=== PATIENT | female | born 1980 | race Caucasian/White ===

== ENCOUNTER 2018-09-15 05:56 | Inpatient (IN) | payer OTHER ==
[~2018-09-15] VITALS: Ht 167.6 cm; Wt 107.7 kg
[2018-09-15] VITALS (18 sets, daily range): BP systolic 121–191; BP diastolic 74–145; PULSE 79–111; RESP 19–29; Ht 167.6 cm; Wt 107.7 kg
[2018-09-15] MEDS ORDERED: GELATIN SIZE 100 SPONGE ONE (06:47)
[2018-09-15] MEDS ORDERED: LIDOCAINE 1% (MPF) 30 ML INJ ONE (06:47)
[2018-09-15] MEDS ORDERED: THROMBIN 5000 UNIT VIAL ONE (06:47)
[2018-09-15] MEDS ORDERED: HEPARIN 1000 UNITS/ML 10 ML INJ ONE (06:48)
[2018-09-15] MEDS ORDERED: SERT25TA PO (07:18)
[2018-09-15] MEDS ORDERED: TRAZ-111 PO (07:18)
[2018-09-15] MEDS ORDERED: LORA0.5T PO (07:18)
[2018-09-15] MEDS ORDERED: HYDR-3671 PO (07:19)
[2018-09-15] MEDS ORDERED: AMLO-147 PO (07:19)
[2018-09-15] MEDS ORDERED: ASPI81TA52 PO (07:20)
[2018-09-15] MEDS ORDERED: ISM20 PO (07:21)
[2018-09-15] MEDS ORDERED: ATOR20TA38 PO (07:21)
[2018-09-15] MEDS ORDERED: PROLIX5 PO (07:22)
[2018-09-15] MEDS ORDERED: BUPR-75 PO (07:22)
[2018-09-15] MEDS ORDERED: ALBU18HF INHALATION (07:23)
--- NOTE | 2018-09-15 07:30 | NUR ---
RE: ABNORMAL LABS RESULTS AND CAUGHT AND SPUTUM PRODUCTION CALLED DR. SALINAS anesthesiologist MADE AWARE OF ABNORMAL HEMOGLOBIN , BUN ,CREATININE AND CALCIUM LEVELS. ALSO MADE AWARE OF patient Sputum production with coughing. ORDERS RECEIVED TO TYPE AND CROSSMATCH 1 UNITS OF PRBC AND KEEP IT ON HOLD.
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
[2018-09-15] MEDS: NICOTINE (21 MG/24 HR) PATCH TRANSDERM SCH (09:12)
--- NOTE | 2018-09-15 11:02 | NUR ---
PACU NOTES TRANSFERRED TO ICU, AWAKE AND ALERT, UPDATED MOM WITH THE ROOM NUMBER. BED SIDE HAND OFF COMPLETED WITH MARIN AMBROSIO
--- NOTE | 2018-09-15 11:03 | NUR ---
Patient received from OR in stable condition. Patient is alert, oriented x4. Noted with intermittent cough with sputum production. Denies pain. Ambulatory.
--- NOTE | 2018-09-15 11:08 | NUR ---
Dr. Diaz called and made aware about the patient's admission. PAtient stable right now
--- NOTE | 2018-09-15 11:30 | NUR ---
Patient refused to take pictures. She replied,"I don't have any skin problems, So, I don't want to take pics." Skin assessment done.
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
[2018-09-15] MEDS ORDERED: DOCUSATE SODIUM 100 MG CAP PO PRN (12:00)
[2018-09-15] MEDS ORDERED: NACL 0.9% 3 ML SYG IV SCH (12:00)
[2018-09-15] MEDS ORDERED: ONDANSETRON 4 MG INJ IV PRN (12:00)
[2018-09-15] MEDS ORDERED: morphine 2 MG INJ IV PRN (12:00)
[2018-09-15] MEDS: ASPIRIN (EC) 81 MG TAB PO SCH (12:16)
[2018-09-15] MEDS ORDERED: SOD CHLORIDE 0.9% 250 ML IV* ONE (12:35)
[2018-09-15] MEDS ORDERED: FUROSEMIDE 40 MG INJ IV ONE (13:00)
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
[2018-09-15] MEDS ORDERED: hydrALAzine 20 MG INJ IV PRN (15:00)
[2018-09-15] MEDS: ACETAMINOPHEN 650MG/20.3ML CUP PO PRN (15:05)
--- NOTE | 2018-09-15 16:00 | NUR ---
Spoke with Rowena TESFAYE, Clarified blood transfusion order. She said to transfuse two units of total blood transfusion.
[2018-09-15] MEDS: CITRIC ACID/NA CITRATE 30 ML CUP PO SCH ×2 (16:40→21:09)
[2018-09-15] MEDS: LORAZEPAM 0.5 MG TAB PO PRN (17:46)
--- NOTE | 2018-09-15 19:28 | NUR ---
EOSS PAtient is alert, oriented x4. At the beginning patient was very congested, But after one dose of lasix patients was feeling better. currently on room air saturating 94%. Denies pain. Currently running two units of blood transfusion. No transfusion reaction noted so far. Afebrile. Vital signs stable. PAtient is very anxious. Blood pressure on high side. Dr. Hopkins aware. All needs attended.
--- NOTE | 2018-09-15 19:50 | RADRPT ---
Vent Rate: 83 bpm RR Interval: 0 msec OR Interval: 140 msec QRS Duration: 78 msec QT Interval: 402 msec QTC Interval: 472 msec P-R-T [place]: 82 - 85 - 55 degrees Normal sinus rhythm Low voltage QRS Cannot rule out Anterior infarct , age undetermined Abnormal ECG Electronically Signed By: Hudson Crandall [id number]
[2018-09-15] MEDS: EPOETIN 3000 UNITS/ML (NON ESRD/NON ONCOLOGY) SC SCH (20:00)
[2018-09-15] MEDS: ATORVASTATIN 20 MG TAB PO SCH (21:10)
[2018-09-15] MEDS: FUROSEMIDE 20 MG INJ IV SCH (21:10)
[2018-09-15] MEDS: traZODone 50 MG TAB PO SCH (21:12)
[2018-09-15] MEDS: ISOSORBIDE MONONITRATE 20 MG TAB PO SCH (21:19)
[2018-09-15] MEDS: IPRATROPIUM (NEB) 0.5 MG/2.5 ML AMP NEB PRN (21:44)
[2018-09-15] MEDS: ALBUTEROL 0.083% (NEB) 2.5 MG/3 ML AMP NEB PRN (21:44)
[2018-09-15] MEDS ORDERED: MAGNESIUM SULFATE 2 GM/50 ML 50 ML IVPB ONE (22:00)
[2018-09-15] MEDS ORDERED: MAGNESIUM SULFATE 2 GM/50 ML 50 ML ONE (22:02)
[2018-09-16] VITALS (12 sets, daily range): BP systolic 152–175; BP diastolic 85–92; PULSE 75–90; RESP 17–21
[2018-09-16] MEDS: OLANZAPINE 2.5 MG TAB PO SCH ×3 (00:02→20:19)
--- NOTE | 2018-09-16 02:09 | NUR ---
Pt was very angry and insulting to staff. Refused PRN Hydralazine for increase BP 189/90, 89. Explained the risk of having increase BP,but pt still refused
[2018-09-16] MEDS: FUROSEMIDE 20 MG INJ IV SCH ×2 (05:16→06:54)
[2018-09-16] MEDS: PANTOPRAZOLE (EC) 40 MG TAB PO SCH ×2 (05:17→06:53)
--- NOTE | 2018-09-16 07:31 | NUR ---
EOSS Pt AAO x4.PT denies pain or discomfort. Pt refused skin pictures. NPO after might for possible left arm fistula placement. Arm alert and sign at head of the in-placed for NO IV , BP and needle punctures on left arm. Pt able to ambulate to the bathroom with assist. Keeps getting up without calling for assistance despite educating her on medications side effects and risk for fall. Pt refused morning medication stated " I'll take my Meds at 8'clock. I want to sleep now" Made charge nurse aware.After she reported SOB and she agreed to take her morning medication.
[2018-09-16] MEDS: SEVELAMER CARBONATE 800 MG TABLET PO SCH ×3 (07:48→17:31)
[2018-09-16] MEDS: NICOTINE (21 MG/24 HR) PATCH TRANSDERM SCH (08:29)
[2018-09-16] MEDS: SERTRALINE 50 MG TAB PO SCH (08:30)
[2018-09-16] MEDS: BUPROPION (XL) 150 MG TAB PO SCH (08:30)
[2018-09-16] MEDS: ASPIRIN (EC) 81 MG TAB PO SCH (08:31)
[2018-09-16] MEDS: AMLODIPINE 10 MG TAB PO SCH (08:31)
[2018-09-16] MEDS: CITRIC ACID/NA CITRATE 30 ML CUP PO SCH ×3 (08:31→20:18)
[2018-09-16] MEDS: FLUPHENAZINE 5 MG TAB PO SCH (08:35)
[2018-09-16] MEDS: ISOSORBIDE MONONITRATE 20 MG TAB PO SCH (08:35)
--- NOTE | 2018-09-16 09:36 | CONS ---
Date/Time of Note Date/Time of Note DATE: 09/16/18 TIME: 09:36 Assessment/Plan Assessment/Plan Assessment/Plan 1. CKD V with worsening renal failure with Fluid overload and pulmonary congestion 2. Severe anemia with Hb 6.7 due to worsening CKD 3. metabolic acidosis 4. Anemia of CKD V s/p 2 units PRBC 5. H/o HTN 6. H/o CHF, acute on chronic diastolic vs systolic 7. H/o Schizophrenia 8. H/o Depression 9. H/o CVA with residual weakness Plan: continue Lasix 20mg IV BID,BUN/Cr 49/5.94, Bicitra 30ml PO TID Epogen 6000 units on TTS for anemia Pt has worsening CKD to ESRD now, eGFR 8- discussed with pt about , she wants to wait before doing HD , agreeable to do AVF will follow up Result Diagram: 09/16/18 0547 09/16/18 0547 Results 24hrs Laboratory Tests Test 09/15/18 11:42 09/15/18 12:26 09/15/18 17:41 09/15/18 20:12 Bedside Glucose 91 White Blood Count 8.5 Red Blood Count 2.34 L Hemoglobin 6.8 *L Hematocrit 21.7 L Mean Corpuscular 92.7 Volume Mean Corpuscular 29.1 Hemoglobin Mean Corpuscular 31.3 L Hemoglobin Concent Red Cell 15.4 H Distribution Width Platelet Count 225 Mean Platelet Volume 10.7 H Immature 0.500 H Granulocytes % Neutrophils % 66.0 Lymphocytes % 19.3 Monocytes % 6.3 Eosinophils % 7.5 H Basophils % 0.4 Nucleated Red Blood 0.0 Cells % Immature 0.040 H Granulocytes # Neutrophils # 5.6 Lymphocytes # 1.6 Monocytes # 0.5 Eosinophils # 0.6 H Basophils # 0.0 Nucleated Red Blood 0.0 Cells # Sodium Level 143 142 Potassium Level 4.3 4.5 Chloride Level 112 H 111 H Carbon Dioxide Level 17 L 18 L Anion Gap 14 H 13 Blood Urea Nitrogen 46 H 49 H Creatinine 5.83 H 5.83 H Est Glomerular 8 L 8 L Filtrat Rate mL/min Glucose Level 81 118 Hemoglobin A1c 5.4 Calcium Level 7.9 L 8.0 L Phosphorus Level 5.3 H Magnesium Level 1.7 1.7 Iron Level 104 Total Iron Binding 248 Capacity Percent Iron 42 Saturation Lactate 906 H Dehydrogenase Troponin I 0.018 0.014 Vitamin B12 Level 788 Folate 12.5 Creatine Kinase 276 H Creatine Kinase 1.2 Index Creatinine Kinase MB 3.43 H (Mass) Test 09/16/18 00:56 09/16/18 05:47 09/16/18 07:48 Troponin I 0.016 0.025 White Blood Count 9.3 Red Blood Count 2.79 L Hemoglobin 8.2 #L Hematocrit 25.7 L Mean Corpuscular 92.1 Volume Mean Corpuscular 29.4 Hemoglobin Mean Corpuscular 31.9 L Hemoglobin Concent Red Cell 15.1 H Distribution Width Platelet Count 213 Mean Platelet Volume 10.9 H Immature 1.000 H Granulocytes % Neutrophils % 62.3 Lymphocytes % 21.4 Monocytes % 8.2 Eosinophils % 6.7 Basophils % 0.4 Nucleated Red Blood 0.0 Cells % Immature 0.090 H Granulocytes # Neutrophils # 5.8 Lymphocytes # 2.0 Monocytes # 0.8 Eosinophils # 0.6 H Basophils # 0.0 Nucleated Red Blood 0.0 Cells # Sodium Level 144 Potassium Level 4.4 Chloride Level 113 H Carbon Dioxide Level 20 L Anion Gap 11 Blood Urea Nitrogen 49 H Creatinine 5.94 H Est Glomerular 8 L Filtrat Rate mL/min Glucose Level 79 Calcium Level 8.2 L Lab Scanned Report LAB Consultation Date/Type/Reason Admit Date/Time Sep 15, 2018 at 10:45 Initial Consult Date 09/15/18 Type of Consult NEPHROLOGY Requesting Provider: ARIANA BLANK MD 24 HR Interval Summary Free Text/Dictation BUN/Cr still remains high, eGFR 8 Exam/Review of Systems Vital Signs Vitals Vital Signs Date Temp Pulse Resp B/P (MAP) Pulse Ox O2 O2 Flow FiO2 Time Delivery Rate 09/16/18 82 08:30 09/16/18 98.3 18 175/86 97 07:16 (115) 09/16/18 Room Air 00:00 09/15/18 2.0 21:44 Intake and Output 09/15/18 09/15/18 09/16/18 1515:00 23:00 07:00 IntakeIntake Total 750 ml 522 ml 28 ml BalanceBalance 750 ml 522 ml 28 ml Exam Constitutional: alert, awake, on acute distress Respiratory: crackles/rales, other (Bibasilar crackles, no wheezing ) Cardiovascular: regular rate and rhythm, nl pulses Gastrointestinal: soft, non-tender Musculoskeletal: swelling (1-2+ pittng edema, no clubbing, no cyanosis ) Neurological: [employer] II-XII intact, nl mental status Medications Medications Current Medications Nicotine (Nicoderm 21 Mg/ 24hr) 1 patch DAILY TRANSDERM Last administered on 09/16/18 08:29; Admin Dose 1 PATCH; Start 09/15/18 at 09:00 Amlodipine Besylate (Norvasc) 10 mg DAILY PO Last administered on 09/16/18 08:31; Admin Dose 10 MG; Start 09/16/18 at 09:00 Aspirin (Halfprin) 81 mg DAILY PO Last administered on 09/16/18 08:31; Admin Dose 81 MG; Start 09/15/18 at 12:00 Atorvastatin Calcium (Lipitor) 20 mg QHS PO Last administered on 09/15/18 21:10; Admin Dose 20 MG; Start 09/15/18 at 21:00 Bupropion HCl (Wellbutrin Xl) 150 mg DAILY PO Last administered on 09/16/18 08:30; Admin Dose 150 MG; Start 09/16/18 at 09:00 Fluphenazine HCl (Prolixin) 5 mg DAILY PO Last administered on 09/16/18 08:35; Admin Dose 5 MG; Start 09/16/18 at 09:00 Hydralazine HCl (Apresoline) 25 mg Q8 PO Last administered on 09/16/18 06:53; Admin Dose 25 MG; Start 09/15/18 at 12:00 Isosorbide Mononitrate (Ismo) 20 mg BID PO Last administered on 09/16/18 08:35; Admin Dose 20 MG; Start 09/15/18 at 21:00 Lorazepam (Ativan) 0.5 mg Q4H PRN PO ANXIETY Last administered on 09/15/18 17:46; Admin Dose 0.5 MG; Start 09/15/18 at 12:00 Sertraline HCl (Zoloft) 25 mg DAILY PO Last administered on 09/16/18 08:30; Admin Dose 25 MG; Start 09/16/18 at 09:00 Trazodone HCl (Desyrel) 50 mg QHS PO Last administered on 1/15/19at 21:12; Admin Dose 50 MG; Start 09/15/18 at 21:00 IV Flush (NS 3 ml) 3 ml PER PROTOCOL IV ; Start 09/15/18 at 12:00 Ondansetron HCl (Zofran Inj) 4 mg Q6H PRN IV NAUSEA AND/OR VOMITING; Start 09/15/18 at 12:00 Albuterol (Proventil 0.083% (Neb)) 2.5 mg Q2H RESP THERAPY PRN NEB SHORTNESS OF BREATH Last administered on 09/15/18at 21:44; Admin Dose 2.5 MG; Start 09/15/18 at 12:00 Ipratropium [place] (Atrovent 0.02% (Neb)) 0.5 mg Q2H RESP THERAPY PRN NEB SHORTNESS OF BREATH Last administered on 09/15/18at 21:44; Admin Dose 0.5 MG; Start 09/15/18 at 12:00 Acetaminophen (Tylenol Liquid) 650 mg Q6H PRN PO PAIN LEVEL 1-3 OR FEVER Last administered on 09/15/18at 15:05; Admin Dose 650 MG; Start 09/15/18 at 12:00 Morphine Sulfate (morphine) 2 mg Q4H PRN IV PAIN LEVEL 7-10; Start 09/15/18 at 12:00 Lorazepam (Ativan) 1 mg Q2H PRN IV ANXIETY; Start 09/15/18 at 12:00 Docusate Sodium (Colace) 100 mg Q12H PRN PO CONSTIPATION; Start 09/15/18 at 12:00 Pantoprazole (Protonix Tab) 40 mg DAILY@06 PO Last administered on 09/16/18at 06:53; Admin Dose 40 MG; Start 09/16/18 at 06:00 Citric Acid/ Sodium Citrate (Bicitra) 30 ml TID PO Last administered on 09/16/18at 08:31; Admin Dose 30 ML; Start 09/15/18 at 16:00 Hydralazine HCl (Apresoline) 10 mg Q6H PRN IV ELEVATED BLOOD PRESSURE Last administered on 09/15/18at 15:14; Admin Dose 10 MG; Start 09/15/18 at 15:00 Furosemide (Lasix) 20 mg BID DIURETICS IV Last administered on 09/16/18at 06:54; Admin Dose 20 MG; Start 09/15/18 at 20:00 Sevelamer Carbonate (Renvela) 1,600 mg WITH MEALS PO Last administered on 09/16/18at 07:48; Admin Dose 1,600 MG; Start 09/16/18 at 07:35 Epoetin Jimmy (Epogen (Non Esrd/Non Oncology)) 6,000 units TuThSa@17 SC Last administered on 09/15/18at 20:00; Admin Dose 6,000 UNITS; Start 09/15/18 at 20:00 Olanzapine (Zyprexa) 2.5 mg BID PO Last administered on 09/16/18at 08:30; Admin Dose 2.5 MG; Start 09/15/18 at 22:00 ISABELLE BROWNING MD Sep 16, 2018 09:36
--- NOTE | 2018-09-16 13:31 | RADRPT ---
Echocardiogram Report Patient Name: JEZ STOKES Gender: Female Date: 1980 Study Date: 15-Sep-2018 Hvac Engineering Technician: Mona Rosario RDCS Location: 106 Ref. Physician: SYDNEY JACKSON Quality: Adequate Procedures: Transthoracic echocardiogram with complete 2D, M-Mode, and doppler examination. Indications: Evaluate Left Ventricular function. 2D/M Mode Doppler Measurement Value Normal Ranges Measurement Value Normal Ranges LVIDd 2D 5.2 3.5 - 5.6 cm AV Peak Nate 1.7 m/sec LVIDs 2D 2.7 2.1 - 4.1 cm AV Peak PG 12.0 mmHg FS 2D 47.9 % LVOT Peak Nate 1.4 m/sec LVPWd 2D 1.3 0.6 - 1.1 cm LVOT Peak PG 8.0 mmHg IVSd 2D 1.3 0.6 - 1.1 cm MV E Peak Nate 1.2 m/sec IVS/LVPW 2D 1.0 MV A Peak Nate 0.8 m/sec AoR Diam 2D 2.5 2.0 - 3.7 cm MV E/A 1.4 LA/Ao 2D 2 0 - 1 MV Decel Time 148 msec EDV 2D 141.0 cm3 MV E/A 1.4 ESV 2D 19.9 cm3 TR Peak Nate 2.9 m/sec LA Dimen 2D 4.3 2.3 - 4.0 cm TR Peak PG 34.0 mmHg RVSP 49.0 mmHg RA Pressure 15.0 Findings Left Ventricle: Normal left ventricular systolic function. Normal left ventricular cavity size. Mild concentric left ventricular hypertrophy. Ejection fraction is visually estimated at 5560 %. Tissue Doppler/Mitral Doppler indices are within normal limits. Right Ventricle: Normal right ventricular size. Normal right ventricular systolic function. Left Atrium: There is mild enlargement of left atrium. Right Atrium: The right atrium is normal in size. Mitral Valve: Normal appearance and function of the mitral valve with trace physiologic regurgitation. Aortic Valve: No significant aortic stenosis or insufficiency. Aortic cusps appear mildly calcified. Tricuspid Valve: Normal appearance of the tricuspid valve. Estimated peak PA systolic pressure 49 mmHg. There is trace to mild tricuspid regurgitation. Pulmonic Valve: Pulmonic valve not well visualized. Pericardium: Normal pericardium with no significant pericardial effusion. Aorta: Normal aortic root. IVC: Normal size and normal respiratory collapse consistent with normal right atrial pressure. Conclusions Normal left ventricular systolic function. Normal left ventricular cavity size. Mild concentric left ventricular hypertrophy. Ejection fraction is visually estimated at 55-60 %. Tissue Doppler/Mitral Doppler indices are within normal limits. There is mild enlargement of left atrium. Normal appearance and function of the mitral valve with trace physiologic regurgitation. Normal appearance of the tricuspid valve. Estimated peak PA systolic pressure 49 mmHg. There is trace to mild tricuspid regurgitation. Electronically Signed By: Ed Shields 16-Sep-2018 13:30:40 -0800 Patient Name: JEZ STOKES Study Date: 15-Sep-2018 [id number]
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
--- NOTE | 2018-09-16 15:47 | PN ---
Date/Time of Note Date/Time of Note DATE: 09/16/18 TIME: 15:42 Assessment/Plan VTE Prophylaxis Risk score (from [facility] [place])>0 risk: 7 SCD applied (from [facility] [place]): Yes Pharmacological prophylaxis: NA/contraindicated Pharm contraindication: surgical contra Lines/Catheters IV C[facility]ter Type [facility]from [facility] Saline Lock Assessment/Plan Hospital Course Patient continues on supplemental oxygen via nasal cannula without distress, status post blood transfusion. Pending hemodialysis access placement. Assessment/Plan -Pulmonary congestion, s/p Lasix -Acute anemia, status post blood transfusion -Chronic kidney disease stage IV 5 with progression to end-stage renal disease. Patient need to be initiated on hemodialysis. Dr. Panda is following in nephrology consultation. -Congestive heart failure, will obtain 2D echo. Dr. Shields is following in cardiology consultation -Hypertension, continue hydralazine -Schizophrenia, continue patient's antipsychotic medications Further recommendations based on clinical course. Plan of care discussed with Dr. Carrero. Result Diagram: 09/16/18 0547 09/16/18 0547 Results 24hrs Laboratory Tests Test 09/15/18 17:41 09/15/18 20:12 09/16/18 00:56 09/16/18 05:47 Iron Level 104 Total Iron Binding 248 Capacity Percent Iron 42 Saturation Lactate 906 H Dehydrogenase Troponin I 0.018 0.014 0.016 0.025 Vitamin B12 Level 788 Folate 12.5 Sodium Level 142 144 Potassium Level 4.5 4.4 Chloride Level 111 H 113 H Carbon Dioxide Level 18 L 20 L Anion Gap 13 11 Blood Urea Nitrogen 49 H 49 H Creatinine 5.83 H 5.94 H Est Glomerular 8 L 8 L Filtrat Rate mL/min Glucose Level 118 79 Calcium Level 8.0 L 8.2 L Magnesium Level 1.7 Creatine Kinase 276 H Creatine Kinase 1.2 Index Creatinine Kinase MB 3.43 H (Mass) White Blood Count 9.3 Red Blood Count 2.79 L Hemoglobin 8.2 #L Hematocrit 25.7 L Mean Corpuscular 92.1 Volume Mean Corpuscular 29.4 Hemoglobin Mean Corpuscular 31.9 L Hemoglobin Concent Red Cell 15.1 H Distribution Width Platelet Count 213 Mean Platelet Volume 10.9 H Immature 1.000 H Granulocytes % Neutrophils % 62.3 Lymphocytes % 21.4 Monocytes % 8.2 Eosinophils % 6.7 Basophils % 0.4 Nucleated Red Blood 0.0 Cells % Immature 0.090 H Granulocytes # Neutrophils # 5.8 Lymphocytes # 2.0 Monocytes # 0.8 Eosinophils # 0.6 H Basophils # 0.0 Nucleated Red Blood 0.0 Cells # Test 09/16/18 07:48 Lab Scanned Report LAB Exam/Review of Systems Vital Signs Vitals Vital Signs Date Temp Pulse Resp B/P (MAP) Pulse Ox O2 O2 Flow FiO2 Time Delivery Rate 09/16/18 82 12:22 09/16/18 98.2 18 170/85 98 12:05 (113) 09/16/18 Nasal 2.0 08:00 Cannula Intake and Output 09/15/18 09/15/18 09/16/18 1515:00 23:00 07:00 IntakeIntake Total 750 ml 522 ml 28 ml BalanceBalance 750 ml 522 ml 28 ml Exam Constitutional: alert, oriented Respiratory: diminished breath sounds Cardiovascular: regular rate and rhythm Gastrointestinal: soft, non-tender Musculoskeletal: nl extremities to inspection Extremities: normal pulses Neurological: nl mental status Skin: nl turgor Medications Medications Current Medications Nicotine (Nicoderm 21 Mg/ 24hr) 1 patch DAILY TRANSDERM Last administered on 09/16/18 08:29; Admin Dose 1 PATCH; Start 09/15/18 at 09:00 Amlodipine Besylate (Norvasc) 10 mg DAILY PO Last administered on 09/16/18at 08 :31; Admin Dose 10 MG; Start 09/16/18 at 09:00 Aspirin (Halfprin) 81 mg DAILY PO Last administered on 09/16/18 08:31; Admin Dose 81 MG; Start 09/15/18 at 12:00 Atorvastatin Calcium (Lipitor) 20 mg QHS PO Last administered on 09/15/18at 21:10; Admin Dose 20 MG; Start 09/15/18 at 21:00 Bupropion HCl (Wellbutrin Xl) 150 mg DAILY PO Last administered on 09/16/18 08:30; Admin Dose 150 MG; Start 09/16/18 at 09:00 Fluphenazine HCl (Prolixin) 5 mg DAILY PO Last administered on 09/16/18at 08:35; Admin Dose 5 MG; Start 09/16/18 at 09:00 Lorazepam (Ativan) 0.5 mg Q4H PRN PO ANXIETY Last administered on 09/15/18 17:46; Admin Dose 0.5 MG; Start 09/15/18 at 12:00 Sertraline HCl (Zoloft) 25 mg DAILY PO Last administered on 09/16/18 08:30; Admin Dose 25 MG; Start 09/16/18 at 09:00 Trazodone HCl (Desyrel) 50 mg QHS PO Last administered on 09/15/18 21:12; Admin Dose 50 MG; Start 09/15/18 at 21:00 IV Flush (NS 3 ml) 3 ml PER PROTOCOL IV ; Start 09/15/18 at 12:00 Ondansetron HCl (Zofran Inj) 4 mg Q6H PRN IV NAUSEA AND/OR VOMITING; Start 09/15/18 at 12:00 Albuterol (Proventil 0.083% (Neb)) 2.5 mg Q2H RESP THERAPY PRN NEB SHORTNESS OF BREATH Last administered on 09/15/18at 21:44; Admin Dose 2.5 MG; Start 09/15/18 at 12:00 Ipratropium [place] (Atrovent 0.02% (Neb)) 0.5 mg Q2H RESP THERAPY PRN NEB SHORTNESS OF BREATH Last administered on 09/15/18 21:44; Admin Dose 0.5 MG; Start 09/15/18 at 12:00 Acetaminophen (Tylenol Liquid) 650 mg Q6H PRN PO PAIN LEVEL 1-3 OR FEVER Last administered on 09/15/18at 15:05; Admin Dose 650 MG; Start 09/15/18 at 12:00 Morphine Sulfate (morphine) 2 mg Q4H PRN IV PAIN LEVEL 7-10; Start 09/15/18 at 12:00 Lorazepam (Ativan) 1 mg Q2H PRN IV ANXIETY; Start 09/15/18 at 12:00 Docusate Sodium (Colace) 100 mg Q12H PRN PO CONSTIPATION; Start 09/15/18 at 12:00 Pantoprazole (Protonix Tab) 40 mg DAILY@06 PO Last administered on 09/16/18 06:53; Admin Dose 40 MG; Start 09/16/18 at 06:00 Citric Acid/ Sodium Citrate (Bicitra) 30 ml TID PO Last administered on 09/16/18at 14:42; Admin Dose 30 ML; Start 09/15/18 at 16:00 Sevelamer Carbonate (Renvela) 1,600 mg WITH MEALS PO Last administered on 09/16/18at 07:48; Admin Dose 1,600 MG; Start 09/16/18 at 07:35 Epoetin [place] (Epogen (Non Esrd/Non Oncology)) 6,000 units TuThSa@17 SC Last administered on 09/15/18at 20:00; Admin Dose 6,000 UNITS; Start 09/15/18 at 20:00 Olanzapine (Zyprexa) 2.5 mg BID PO Last administered on 09/16/18at 08:30; Admin Dose 2.5 MG; Start 09/15/18 at 22:00 Furosemide (Lasix) 40 mg BID DIURETICS IV ; Start 09/16/18 at 18:00 Hydralazine HCl (Apresoline) 10 mg Q4 PRN IV ELEVATED BLOOD PRESSURE; Start 09/16/18 at 13:30 Hydralazine HCl (Apresoline) 50 mg Q8 PO Last administered on 09/16/18at 14:42; Admin Dose 50 MG; Start 09/16/18 at 14:00 Isosorbide Dinitrate (Isordil) 20 mg TID PO ; Start 09/16/18 at 21:00 SYDNEY JACKSON Sep 16, 2018 15:47
--- NOTE | 2018-09-16 16:27 | NUR ---
patient kept npo breakfast and lunch for a possible procedure in or today by .patient seen by for consult and clearance and said pt needs to be diuresed until patient is able to lie flat in or for the surgery.now patient will be on diuretics and said maybe in a few days patient will be ok for the surgery.renal diet resumed for dinner today until patient will finally go for the procedure in few days.
[2018-09-16] MEDS: FUROSEMIDE 40 MG INJ IV SCH (17:32)
--- NOTE | 2018-09-16 20:00 | NUR ---
pt awakened asking a lot of food gave sandwich cassandra well.
[2018-09-16] MEDS: ATORVASTATIN 20 MG TAB PO SCH (20:19)
[2018-09-16] MEDS: traZODone 50 MG TAB PO SCH (20:19)
[2018-09-16] MEDS: ISOSORBIDE DINITRATE 20 MG TAB PO SCH (20:19)
--- NOTE | 2018-09-16 20:37 | PN ---
Date/Time of Note Date/Time of Note DATE: 09/16/18 TIME: 20:34 Assessment/Plan Lines/Catheters IV Catheter Type (from [facility]): Saline Lock Assessment/Plan Chief Complaint/Hosp Course -Chronic kidney disease stage IV to V: Seems that the patient's renal failure has been worsened secondary to her diabetes and hypertension. We will plan to create an access for the patient when she has been optimized from a medical standpoint. Will schedule her surgery in the coming days pending optimization -The patient does have adequate vein conduits on her left upper extremity in which we will plan to use for her fistula creation -Appreciate nephrology evaluation and optimization -Appreciate cardiology evaluation and optimization -Discussed findings, plan and management with the patient and the family at the bedside. -Optimize vascular status (BP meds, diet, nutrition, exercise, sugar control, antiplatelets). -Thank you for allowing me to participate in the care of this patient. Please call with any questions. Subjective 24 Hr Interval Summary no new vascular events overnight Exam/Review of Systems Vital Signs Vitals Vital Signs Date Temp Pulse Resp B/P (MAP) Pulse Ox O2 O2 Flow FiO2 Time Delivery Rate 09/16/18 97.5 77 17 152/89 91 20:13 (110) 09/16/18 Nasal 2.0 19:46 Cannula Intake and Output 09/15/18 09/15/18 09/16/18 1515:00 23:00 07:00 IntakeIntake Total 750 ml 522 ml 28 ml BalanceBalance 750 ml 522 ml 28 ml Exam Free Text/Dictation GENERAL: The patient is awake with productive cough. PULMONARY: Coarse breath sounds bilaterally, some crackles at the bases. CARDIOVASCULAR: S1, S2 present. ABDOMEN: Soft, nontender, nondistended. Bowel sounds positive. Truncal obesity. EXTREMITIES: -Right lower extremities: Palpable femoral pulse, faint pedal pulse. Motor, sensory intact. Capillary refill 3 seconds, large leg. -Left lower extremity: Palpable femoral pulse, faint pedal pulse. Motor, sensory intact. Capillary refill 3 seconds. Large leg. -Bilateral upper extremities: Palpable brachial pulse. Motor, sensory intact. Capillary refill 3 seconds. -Right-sided upper and lower extremity: Motor is intact; however, has some weakness and paralysis that appears to be 4/5. Results Result Diagram: 09/16/18 0547 09/16/18 0547 ARIANA BLANK MD Sep 16, 2018 20:37
--- NOTE | 2018-09-16 21:00 | NUR ---
Dr Bird here to see pt ordered no BP or IV to left arm.
[2018-09-17] VITALS (11 sets, daily range): BP systolic 137–188; BP diastolic 66–88; PULSE 75–85; RESP 20
--- NOTE | 2018-09-17 05:38 | NUR ---
eoss; resting on and off no acute distress. still with LE edema instructed to elevate lower extremity. BP remained elevated but asymptomatic. enc self reposition ,hourly rounding done. will continue to monitor pt.
[2018-09-17] MEDS: FUROSEMIDE 40 MG INJ IV SCH ×2 (05:46→17:52)
[2018-09-17] MEDS: PANTOPRAZOLE (EC) 40 MG TAB PO SCH (05:46)
--- NOTE | 2018-09-17 07:54 | PN ---
Date/Time of Note Date/Time of Note DATE: 09/17/18 TIME: 07:53 Assessment/Plan Lines/Catheters IV Catheter Type (from [facility]): Saline Lock Assessment/Plan Chief Complaint/Hosp Course -Chronic kidney disease stage IV to V: Seems that the patient's renal failure has been worsened secondary to her diabetes and hypertension. We will plan to create an access for the patient when she has been optimized from a medical standpoint. Will schedule her surgery in the coming days pending optimization -The patient does have adequate vein conduits on her left upper extremity in which we will plan to use for her fistula creation -Appreciate nephrology evaluation and optimization -Appreciate cardiology evaluation and optimization -Discussed findings, plan and management with the patient and the family at the bedside. -Optimize vascular status (BP meds, diet, nutrition, exercise, sugar control, antiplatelets). -Thank you for allowing me to participate in the care of this patient. Please call with any questions. Subjective 24 Hr Interval Summary no new vascular events overnight Exam/Review of Systems Vital Signs Vitals Vital Signs Date Temp Pulse Resp B/P (MAP) Pulse Ox O2 O2 Flow FiO2 Time Delivery Rate 09/17/18 98.0 84 20 188/82 95 Room Air 07:16 (117) 09/16/18 2.0 19:46 Intake and Output 09/16/18 09/16/18 09/17/18 1515:00 23:00 07:00 IntakeIntake Total 50 ml 350 ml 400 ml BalanceBalance 50 ml 350 ml 400 ml Exam Free Text/Dictation GENERAL: Awake and answers simple questions PULMONARY: Coarse breath sounds bilaterally, some crackles at the bases. CARDIOVASCULAR: S1, S2 present. ABDOMEN: Soft, nontender, nondistended. Bowel sounds positive. Truncal obesity. EXTREMITIES: -Right lower extremities: Palpable femoral pulse, faint pedal pulse. Motor, sensory intact. Capillary refill 3 seconds, large leg. -Left lower extremity: Palpable femoral pulse, faint pedal pulse. Motor, sensory intact. Capillary refill 3 seconds. Large leg. -Bilateral upper extremities: Palpable brachial pulse. Motor, sensory intact. Capillary refill 3 seconds. -Right-sided upper and lower extremity: Motor is intact; however, has some weakness and paralysis that appears to be 4/5. Results Result Diagram: 09/16/18 0547 09/16/18 0547 ARIANA BLANK MD Sep 17, 2018 07:54
[2018-09-17] MEDS: CITRIC ACID/NA CITRATE 30 ML CUP PO SCH ×3 (08:41→21:36)
[2018-09-17] MEDS: SERTRALINE 50 MG TAB PO SCH (08:41)
[2018-09-17] MEDS: SEVELAMER CARBONATE 800 MG TABLET PO SCH ×3 (08:41→17:52)
[2018-09-17] MEDS: NICOTINE (21 MG/24 HR) PATCH TRANSDERM SCH (08:41)
[2018-09-17] MEDS: ASPIRIN (EC) 81 MG TAB PO SCH (08:42)
[2018-09-17] MEDS: OLANZAPINE 2.5 MG TAB PO SCH ×2 (08:42→21:36)
[2018-09-17] MEDS: AMLODIPINE 10 MG TAB PO SCH (08:42)
[2018-09-17] MEDS: BUPROPION (XL) 150 MG TAB PO SCH (08:42)
[2018-09-17] MEDS: FLUPHENAZINE 5 MG TAB PO SCH (08:43)
[2018-09-17] MEDS: ISOSORBIDE DINITRATE 20 MG TAB PO SCH ×3 (09:14→21:36)
--- NOTE | 2018-09-17 12:31 | CONS ---
Date/Time of Note Date/Time of Note DATE: 09/17/18 TIME: 12:31 Assessment/Plan Assessment/Plan Assessment/Plan 1. CKD V with worsening renal failure with Fluid overload and pulmonary congestion 2. Severe anemia with Hb 6.7 due to worsening CKD 3. metabolic acidosis 4. Anemia of CKD V s/p 2 units PRBC 5. H/o HTN 6. H/o CHF, acute on chronic diastolic vs systolic 7. H/o Schizophrenia 8. H/o Depression 9. H/o CVA with residual weakness Plan: decrease Lasix 20mg IV BID,BUN/Cr 50/6.18, eGFR 8 Bicitra 30ml PO TID Epogen 6000 units on TTS for anemia Pt has worsening CKD to ESRD now, eGFR 8- discussed with pt about , she wants to wait before doing HD , but she is agreeable to do AVF pt is ok to have AVF will follow up Result Diagram: 09/17/18 0815 09/17/18 0815 Results 24hrs Laboratory Tests Test 09/17/18 07:46 09/17/18 08:15 Lab Scanned Report BLOOD TRANSFUSION White Blood Count 9.6 Red Blood Count 2.87 L Hemoglobin 8.4 L Hematocrit 26.1 L Mean Corpuscular Volume 90.9 Mean Corpuscular Hemoglobin 29.3 Mean Corpuscular Hemoglobin Concent 32.2 Red Cell Distribution Width 15.1 H Platelet Count 220 Mean Platelet Volume 11.0 H Immature Granulocytes % 0.600 H Neutrophils % 66.4 Lymphocytes % 19.0 Monocytes % 7.7 Eosinophils % 6.0 Basophils % 0.3 Nucleated Red Blood Cells % 0.0 Immature Granulocytes # 0.060 H Neutrophils # 6.4 Lymphocytes # 1.8 Monocytes # 0.7 Eosinophils # 0.6 H Basophils # 0.0 Nucleated Red Blood Cells # 0.0 Sodium Level 140 Potassium Level 4.5 Chloride Level 111 H Carbon Dioxide Level 23 Anion Gap 6 Blood Urea Nitrogen 50 H Creatinine 6.18 H Est Glomerular Filtrat Rate mL/min 8 L Glucose Level 131 # Calcium Level 8.4 Consultation Date/Type/Reason Admit Date/Time Sep 15, 2018 at 10:45 Initial Consult Date 09/15/18 Type of Consult NEPHROLOGY Requesting Provider: ARIANA BLANK MD Exam/Review of Systems Vital Signs Vitals Vital Signs Date Temp Pulse Resp B/P (MAP) Pulse Ox O2 O2 Flow FiO2 Time Delivery Rate 09/17/18 85 12:28 09/17/18 98.0 20 164/84 91 Room Air 11:25 (110) 09/16/18 2.0 19:46 Intake and Output 09/16/18 09/16/18 09/17/18 1515:00 23:00 07:00 IntakeIntake Total 50 ml 350 ml 400 ml BalanceBalance 50 ml 350 ml 400 ml Exam Constitutional: alert, awake, on acute distress Respiratory: crackles/rales, other (Bibasilar crackles, no wheezing ) Cardiovascular: regular rate and rhythm, nl pulses Gastrointestinal: soft, non-tender Musculoskeletal: swelling (1-2+ pittng edema, no clubbing, no cyanosis ) Neurological: [employer] II-XII intact, nl mental status Medications Medications Current Medications Nicotine (Nicoderm 21 Mg/ 24hr) 1 patch DAILY TRANSDERM Last administered on 09/17/18 08:41; Admin Dose 1 PATCH; Start 09/15/18 at 09:00 Amlodipine Besylate (Norvasc) 10 mg DAILY PO Last administered on 09/17/18 08:42; Admin Dose 10 MG; Start 09/16/18 at 09:00 Aspirin (Halfprin) 81 mg DAILY PO Last administered on 09/17/18 08:42; Admin Dose 81 MG; Start 09/15/18 at 12:00 Atorvastatin Calcium (Lipitor) 20 mg QHS PO Last administered on 09/16/18 20:19; Admin Dose 20 MG; Start 09/15/18 at 21:00 Bupropion HCl (Wellbutrin Xl) 150 mg DAILY PO Last administered on 09/17/18 08:42; Admin Dose 150 MG; Start 09/16/18 at 09:00 Fluphenazine HCl (Prolixin) 5 mg DAILY PO Last administered on 09/17/18 08:43; Admin Dose 5 MG; Start 09/16/18 at 09:00 Lorazepam (Ativan) 0.5 mg Q4H PRN PO ANXIETY Last administered on 09/15/18 17:46; Admin Dose 0.5 MG; Start 09/15/18 at 12:00 Sertraline HCl (Zoloft) 25 mg DAILY PO Last administered on 09/17/18 08:41; Admin Dose 25 MG; Start 09/16/18 at 09:00 Trazodone HCl (Desyrel) 50 mg QHS PO Last administered on 09/16/18 20:19; Admin Dose 50 MG; Start 09/15/18 at 21:00 IV Flush (NS 3 ml) 3 ml PER PROTOCOL IV ; Start 09/15/18 at 12:00 Ondansetron HCl (Zofran Inj) 4 mg Q6H PRN IV NAUSEA AND/OR VOMITING; Start 09/15/18 at 12:00 Albuterol (Proventil 0.083% (Neb)) 2.5 mg Q2H RESP THERAPY PRN NEB SHORTNESS OF BREATH Last administered on 09/15/18 21:44; Admin Dose 2.5 MG; Start 09/15/18 at 12:00 Ipratropium [place] (Atrovent 0.02% (Neb)) 0.5 mg Q2H RESP THERAPY PRN NEB SHORTNESS OF BREATH Last administered on 09/15/18 21:44; Admin Dose 0.5 MG; Start 09/15/18 at 12:00 Acetaminophen (Tylenol Liquid) 650 mg Q6H PRN PO PAIN LEVEL 1-3 OR FEVER Last administered on 09/15/18 15:05; Admin Dose 650 MG; Start 09/15/18 at 12:00 Morphine Sulfate (morphine) 2 mg Q4H PRN IV PAIN LEVEL 7-10; Start 09/15/18 at 12:00 Lorazepam (Ativan) 1 mg Q2H PRN IV ANXIETY; Start 09/15/18 at 12:00 Docusate Sodium (Colace) 100 mg Q12H PRN PO CONSTIPATION; Start 09/15/18 at 12:00 Pantoprazole (Protonix Tab) 40 mg DAILY@06 PO Last administered on 09/17/18 05:46; Admin Dose 40 MG; Start 09/16/18 at 06:00 Citric Acid/ Sodium Citrate (Bicitra) 30 ml TID PO Last administered on 09/17/18at 12:22; Admin Dose 30 ML; Start 09/15/18 at 16:00 Sevelamer Carbonate (Renvela) 1,600 mg WITH MEALS PO Last administered on 09/17/18 12:22; Admin Dose 1,600 MG; Start 09/16/18 at 07:35 Epoetin Jimmy (Epogen (Non Esrd/Non Oncology)) 6,000 units TuThSa@17 SC Last administered on 09/15/18at 20:00; Admin Dose 6,000 UNITS; Start 09/15/18 at 20:00 Olanzapine (Zyprexa) 2.5 mg BID PO Last administered on 09/17/18at 08:42; Admin Dose 2.5 MG; Start 09/15/18 at 22:00 Furosemide (Lasix) 40 mg BID DIURETICS IV Last administered on 09/17/18at 05:46; Admin Dose 40 MG; Start 09/16/18 at 18:00 Hydralazine HCl (Apresoline) 10 mg Q4 PRN IV ELEVATED BLOOD PRESSURE; Start 09/16/18 at 13:30 Hydralazine HCl (Apresoline) 50 mg Q8 PO Last administered on 09/17/18at 05:46; Admin Dose 50 MG; Start 09/16/18 at 14:00 Isosorbide Dinitrate (Isordil) 20 mg TID PO Last administered on 09/17/18at 12 :23; Admin Dose 20 MG; Start 09/16/18 at 21:00 ISABELLE BROWNING MD Sep 17, 2018 12:31
--- NOTE | 2018-09-17 12:45 | PN ---
Date/Time of Note Date/Time of Note DATE: 09/17/18 TIME: 12:43 Assessment/Plan VTE Prophylaxis Risk score (from Ns)>0 risk: 6 SCD applied (from Ns): Yes Pharmacological prophylaxis: NA/contraindicated Pharm contraindication: surgical contra Lines/Catheters IV [facility]from [facility]): Saline Lock Assessment/Plan Hospital Course Patient is comfortable on supplemental oxygen, denies shortness of breath. Assessment/Plan -Pulmonary congestion, s/p Lasix -Acute anemia, status post blood transfusion -Chronic kidney disease stage IV 5 with progression to end-stage renal disease. Patient need to be initiated on hemodialysis. Dr. Panda is following in nephrology consultation. -Congestive heart failure, will obtain 2D echo. Dr. Shields is following in cardiology consultation -Hypertension, continue hydralazine -Schizophrenia, continue patient's antipsychotic medications Further recommendations based on clinical course. Plan of care discussed with Dr. Carrero. Result Diagram: 09/17/18 0815 09/17/18 0815 Results 24hrs Laboratory Tests Test 09/17/18 07:46 09/17/18 08:15 Lab Scanned Report BLOOD TRANSFUSION White Blood Count 9.6 Red Blood Count 2.87 L Hemoglobin 8.4 L Hematocrit 26.1 L Mean Corpuscular Volume 90.9 Mean Corpuscular Hemoglobin 29.3 Mean Corpuscular Hemoglobin Concent 32.2 Red Cell Distribution Width 15.1 H Platelet Count 220 Mean Platelet Volume 11.0 H Immature Granulocytes % 0.600 H Neutrophils % 66.4 Lymphocytes % 19.0 Monocytes % 7.7 Eosinophils % 6.0 Basophils % 0.3 Nucleated Red Blood Cells % 0.0 Immature Granulocytes # 0.060 H Neutrophils # 6.4 Lymphocytes # 1.8 Monocytes # 0.7 Eosinophils # 0.6 H Basophils # 0.0 Nucleated Red Blood Cells # 0.0 Sodium Level 140 Potassium Level 4.5 Chloride Level 111 H Carbon Dioxide Level 23 Anion Gap 6 Blood Urea Nitrogen 50 H Creatinine 6.18 H Est Glomerular Filtrat Rate mL/min 8 L Glucose Level 131 # Calcium Level 8.4 Exam/Review of Systems Vital Signs Vitals Vital Signs Date Temp Pulse Resp B/P (MAP) Pulse Ox O2 O2 Flow FiO2 Time Delivery Rate 09/17/18 85 12:28 09/17/18 98.0 20 164/84 91 Room Air 11:25 (110) 09/16/18 2.0 19:46 Intake and Output 09/16/18 09/16/18 09/17/18 1515:00 23:00 07:00 IntakeIntake Total 50 ml 350 ml 400 ml BalanceBalance 50 ml 350 ml 400 ml Exam Constitutional: alert, oriented Respiratory: diminished breath sounds Cardiovascular: regular rate and rhythm Gastrointestinal: soft, non-tender Musculoskeletal: nl extremities to inspection Extremities: normal pulses Neurological: nl mental status Skin: nl turgor Medications Medications Current Medications Nicotine (Nicoderm 21 Mg/ 24hr) 1 patch DAILY TRANSDERM Last administered on 09/17/18 08:41; Admin Dose 1 PATCH; Start 09/15/18 at 09:00 Amlodipine Besylate (Norvasc) 10 mg DAILY PO Last administered on 09/17/18 08 :42; Admin Dose 10 MG; Start 09/16/18 at 09:00 Aspirin (Halfprin) 81 mg DAILY PO Last administered on 09/17/18 08:42; Admin Dose 81 MG; Start 09/15/18 at 12:00 Atorvastatin Calcium (Lipitor) 20 mg QHS PO Last administered on 09/16/18 20:19; Admin Dose 20 MG; Start 09/15/18 at 21:00 Bupropion HCl (Wellbutrin Xl) 150 mg DAILY PO Last administered on 09/17/18 08:42; Admin Dose 150 MG; Start 09/16/18 at 09:00 Fluphenazine HCl (Prolixin) 5 mg DAILY PO Last administered on 09/17/18 08:43; Admin Dose 5 MG; Start 09/16/18 at 09:00 Lorazepam (Ativan) 0.5 mg Q4H PRN PO ANXIETY Last administered on 09/15/18 17:46; Admin Dose 0.5 MG; Start 09/15/18 at 12:00 Sertraline HCl (Zoloft) 25 mg DAILY PO Last administered on 09/17/18 08:41; Admin Dose 25 MG; Start 09/16/18 at 09:00 Trazodone HCl (Desyrel) 50 mg QHS PO Last administered on 09/16/18 20:19; Admin Dose 50 MG; Start 09/15/18 at 21:00 IV Flush (NS 3 ml) 3 ml PER PROTOCOL IV ; Start 09/15/18 at 12:00 Ondansetron HCl (Zofran Inj) 4 mg Q6H PRN IV NAUSEA AND/OR VOMITING; Start 09/15/18 at 12:00 Albuterol (Proventil 0.083% (Neb)) 2.5 mg Q2H RESP THERAPY PRN NEB SHORTNESS OF BREATH Last administered on 09/15/18at 21:44; Admin Dose 2.5 MG; Start 09/15/18 at 12:00 Ipratropium [place] (Atrovent 0.02% (Neb)) 0.5 mg Q2H RESP THERAPY PRN NEB SHORTNESS OF BREATH Last administered on 09/15/18at 21:44; Admin Dose 0.5 MG; Start 09/15/18 at 12:00 Acetaminophen (Tylenol Liquid) 650 mg Q6H PRN PO PAIN LEVEL 1-3 OR FEVER Last administered on 09/15/18at 15:05; Admin Dose 650 MG; Start 09/15/18 at 12:00 Morphine Sulfate (morphine) 2 mg Q4H PRN IV PAIN LEVEL 7-10; Start 09/15/18 at 12:00 Lorazepam (Ativan) 1 mg Q2H PRN IV ANXIETY; Start 09/15/18 at 12:00 Docusate Sodium (Colace) 100 mg Q12H PRN PO CONSTIPATION; Start 09/15/18 at 12:00 Pantoprazole (Protonix Tab) 40 mg DAILY@06 PO Last administered on 09/17/18at 05:46; Admin Dose 40 MG; Start 09/16/18 at 06:00 Citric Acid/ Sodium Citrate (Bicitra) 30 ml TID PO Last administered on 09/17/18at 12:22; Admin Dose 30 ML; Start 09/15/18 at 16:00 Sevelamer Carbonate (Renvela) 1,600 mg WITH MEALS PO Last administered on 09/17/18at 12:22; Admin Dose 1,600 MG; Start 09/16/18 at 07:35 Epoetin [place] (Epogen (Non Esrd/Non Oncology)) 6,000 units TuThSa@17 SC Last administered on 09/15/18at 20:00; Admin Dose 6,000 UNITS; Start 09/15/18 at 20:00 Olanzapine (Zyprexa) 2.5 mg BID PO Last administered on 09/17/18at 08:42; Admin Dose 2.5 MG; Start 09/15/18 at 22:00 Furosemide (Lasix) 40 mg BID DIURETICS IV Last administered on 09/17/18at 05:46; Admin Dose 40 MG; Start 09/16/18 at 18:00 Hydralazine HCl (Apresoline) 10 mg Q4 PRN IV ELEVATED BLOOD PRESSURE; Start 09/16/18 at 13:30 Hydralazine HCl (Apresoline) 50 mg Q8 PO Last administered on 09/17/18at 05:46; Admin Dose 50 MG; Start 09/16/18 at 14:00 Isosorbide Dinitrate (Isordil) 20 mg TID PO Last administered on 09/17/18at 12:23; Admin Dose 20 MG; Start 09/16/18 at 21:00 SYDNEY JACKSON Sep 17, 2018 12:45
--- NOTE | 2018-09-17 13:50 | CONS ---
Date/Time of Note Date/Time of Note DATE: 09/17/18 TIME: 13:46 Assessment/Plan Assessment/Plan Hospital Course IMPRESSION: 1. Preoperative evaluation in patient who is to undergo creation of AV fistula.-neg trop x 3. NL EF by echo. Once volume status and BP improved then patient is moderate CV risk for the procedure 2. Congestive heart failure by chest x-ray, question systolic versus diastolic, likely acute on chronic and possibly more in the setting of volume overload in the setting of renal failure. 3. Hypertension, uncontrolled. 4. History of cerebrovascular accident with right-sided weakness. 5. History of traumatic brain injury. 6. Chronic kidney disease, to be started on hemodialysis. 7. Psychiatric disorder. 8. Severe anemia, status post transfusions. Recc: -Tele -serial ecg's -Increase baseline hydralazine -Continue norvasc/isordil -Continue lasix diuresis and follow volume status clsoely Result Diagram: 09/17/18 0815 09/17/18 0815 Results 24hrs Laboratory Tests Test 09/17/18 07:46 09/17/18 08:15 Lab Scanned Report BLOOD TRANSFUSION White Blood Count 9.6 Red Blood Count 2.87 L Hemoglobin 8.4 L Hematocrit 26.1 L Mean Corpuscular Volume 90.9 Mean Corpuscular Hemoglobin 29.3 Mean Corpuscular Hemoglobin Concent 32.2 Red Cell Distribution Width 15.1 H Platelet Count 220 Mean Platelet Volume 11.0 H Immature Granulocytes % 0.600 H Neutrophils % 66.4 Lymphocytes % 19.0 Monocytes % 7.7 Eosinophils % 6.0 Basophils % 0.3 Nucleated Red Blood Cells % 0.0 Immature Granulocytes # 0.060 H Neutrophils # 6.4 Lymphocytes # 1.8 Monocytes # 0.7 Eosinophils # 0.6 H Basophils # 0.0 Nucleated Red Blood Cells # 0.0 Sodium Level 140 Potassium Level 4.5 Chloride Level 111 H Carbon Dioxide Level 23 Anion Gap 6 Blood Urea Nitrogen 50 H Creatinine 6.18 H Est Glomerular Filtrat Rate mL/min 8 L Glucose Level 131 # Calcium Level 8.4 Consultation Date/Type/Reason Admit Date/Time Sep 15, 2018 at 10:45 Initial Consult Date 09/15/18 Type of Consult cardiology Reason for Consultation Preop Requesting Provider: ARIANA BLANK MD Exam/Review of Systems Vital Signs Vitals Vital Signs Date Temp Pulse Resp B/P (MAP) Pulse Ox O2 O2 Flow FiO2 Time Delivery Rate 09/17/18 85 12:28 09/17/18 98.0 20 164/84 91 Room Air 11:25 (110) 09/17/18 2.0 08:00 Intake and Output 09/16/18 09/16/18 09/17/18 1515:00 23:00 07:00 IntakeIntake Total 50 ml 350 ml 400 ml BalanceBalance 50 ml 350 ml 400 ml Exam Review of Systems: CONSTITUTIONAL: No fevers, chills. PULMONARY: No sob CARDIOVASCULAR: No chest pain/palpitations GASTROINTESTINAL: No nausea/vomiting. GENITOURINARY: No hematuria/dysuria. MUSCULOSKELETAL: No myagias/arthalgias. PSYCHIATRIC: The patient denies depression. NEUROLOGIC: lethargic Constitutional: alert Psych: no complaints Head: normocephalic ENMT: mucosa pink and moist Neck: supple, jvd (9-120 cm water) Respiratory: diminished breath sounds (at bases/B) Cardiovascular: regular rate and rhythm Gastrointestinal: soft, non-tender Musculoskeletal: muscle tone (normal) Extremities: edema (trace/B) Neurological: other (No focal deficits) Medications Medications Current Medications Nicotine (Nicoderm 21 Mg/ 24hr) 1 patch DAILY TRANSDERM Last administered on 09/17/18at 08:41; Admin Dose 1 PATCH; Start 09/15/18 at 09:00 Amlodipine Besylate (Norvasc) 10 mg DAILY PO Last administered on 09/17/18at 08:42; Admin Dose 10 MG; Start 09/16/18 at 09:00 Aspirin (Halfprin) 81 mg DAILY PO Last administered on 09/17/18at 08:42; Admin Dose 81 MG; Start 09/15/18 at 12:00 Atorvastatin Calcium (Lipitor) 20 mg QHS PO Last administered on 09/16/18 20:19; Admin Dose 20 MG; Start 09/15/18 at 21:00 Bupropion HCl (Wellbutrin Xl) 150 mg DAILY PO Last administered on 09/17/18at 08:42; Admin Dose 150 MG; Start 09/16/18 at 09:00 Fluphenazine HCl (Prolixin) 5 mg DAILY PO Last administered on 09/17/18at 08:43; Admin Dose 5 MG; Start 09/16/18 at 09:00 Lorazepam (Ativan) 0.5 mg Q4H PRN PO ANXIETY Last administered on 09/15/18at 17:46; Admin Dose 0.5 MG; Start 09/15/18 at 12:00 Sertraline HCl (Zoloft) 25 mg DAILY PO Last administered on 09/17/18at 08:41; Admin Dose 25 MG; Start 09/16/18 at 09:00 Trazodone HCl (Desyrel) 50 mg QHS PO Last administered on 09/16/18at 20:19; Admin Dose 50 MG; Start 09/15/18 at 21:00 IV Flush (NS 3 ml) 3 ml PER PROTOCOL IV ; Start 09/15/18 at 12:00 Ondansetron HCl (Zofran Inj) 4 mg Q6H PRN IV NAUSEA AND/OR VOMITING; Start 09/15/18 at 12:00 Albuterol (Proventil 0.083% (Neb)) 2.5 mg Q2H RESP THERAPY PRN NEB SHORTNESS OF BREATH Last administered on 09/15/18at 21:44; Admin Dose 2.5 MG; Start 09/15/18 at 12:00 Ipratropium [place] (Atrovent 0.02% (Neb)) 0.5 mg Q2H RESP THERAPY PRN NEB SHORTNESS OF BREATH Last administered on 09/15/18at 21:44; Admin Dose 0.5 MG; Start 09/15/18 at 12:00 Acetaminophen (Tylenol Liquid) 650 mg Q6H PRN PO PAIN LEVEL 1-3 OR FEVER Last administered on 09/15/18at 15:05; Admin Dose 650 MG; Start 09/15/18 at 12:00 Morphine Sulfate (morphine) 2 mg Q4H PRN IV PAIN LEVEL 7-10; Start 09/15/18 at 12:00 Lorazepam (Ativan) 1 mg Q2H PRN IV ANXIETY; Start 09/15/18 at 12:00 Docusate Sodium (Colace) 100 mg Q12H PRN PO CONSTIPATION; Start 09/15/18 at 12:00 Pantoprazole (Protonix Tab) 40 mg DAILY@06 PO Last administered on 09/17/18at 05:46; Admin Dose 40 MG; Start 09/16/18 at 06:00 Citric Acid/ Sodium Citrate (Bicitra) 30 ml TID PO Last administered on 09/17/18 12:22; Admin Dose 30 ML; Start 09/15/18 at 16:00 Sevelamer Carbonate (Renvela) 1,600 mg WITH MEALS PO Last administered on 09/17/18 12:22; Admin Dose 1,600 MG; Start 09/16/18 at 07:35 Epoetin [place] (Epogen (Non Esrd/Non Oncology)) 6,000 units TuThSa@17 SC Last administered on 09/15/18at 20:00; Admin Dose 6,000 UNITS; Start 09/15/18 at 20:00 Olanzapine (Zyprexa) 2.5 mg BID PO Last administered on 09/17/18at 08:42; Admin Dose 2.5 MG; Start 09/15/18 at 22:00 Furosemide (Lasix) 40 mg BID DIURETICS IV Last administered on 09/17/18 05:46; Admin Dose 40 MG; Start 09/16/18 at 18:00 Hydralazine HCl (Apresoline) 10 mg Q4 PRN IV ELEVATED BLOOD PRESSURE; Start 09/16/18 at 13:30 Hydralazine HCl (Apresoline) 50 mg Q8 PO Last administered on 09/17/18at 05:46; Admin Dose 50 MG; Start 09/16/18 at 14:00 Isosorbide Dinitrate (Isordil) 20 mg TID PO Last administered on 09/17/18at 12:23; Admin Dose 20 MG; Start 09/16/18 at 21:00 ISABELLA MEZA Sep 17, 2018 13:50
[2018-09-17] MEDS: EPOETIN 3000 UNITS/ML (NON ESRD/NON ONCOLOGY) SC SCH (17:54)
[2018-09-17] MEDS: ATORVASTATIN 20 MG TAB PO SCH (21:36)
[2018-09-17] MEDS: traZODone 50 MG TAB PO SCH (21:36)
--- NOTE | 2018-09-17 21:44 | RADRPT ---
Vent Rate: 178 bpm RR Interval: 0 msec SD Interval: 0 msec QRS Duration: 176 msec QT Interval: 300 msec QTC Interval: 516 msec P-R-T [place]: 0 - 90 - 90 degrees Age and gender specific ECG analysis Undetermined rhythm, possible artifact Rightward axis Nonspecific intraventricular block ST elevation, consider inferior injury or acute infarct Abnormal ECG Electronically Signed By: Hudson Crandall [id number]
--- NOTE | 2018-09-17 21:44 | RADRPT ---
Vent Rate: 82 bpm RR Interval: 0 msec [place] Interval: 136 msec QRS Duration: 82 msec QT Interval: 398 msec QTC Interval: 464 msec P-R-T [place]: 68 - 72 - 63 degrees Normal sinus rhythm Normal ECG Electronically Signed By: Hudson Crandall [id number]
--- NOTE | 2018-09-17 21:50 | RADRPT ---
Vent Rate: 81 bpm RR Interval: 0 msec [place] Interval: 138 msec QRS Duration: 82 msec QT Interval: 404 msec QTC Interval: 469 msec P-R-T [place]: 64 - 70 - 58 degrees Normal sinus rhythm Possible Left atrial enlargement Borderline ECG Electronically Signed By: Hudson Crandall [id number]
[2018-09-17] MEDS: morphine SULFATE/PF (2 MG/2 ML) SYG IV PRN (23:01)
[2018-09-18] VITALS (10 sets, daily range): BP systolic 130–178; BP diastolic 60–92; PULSE 69–82; RESP 18–20
[2018-09-18] MEDS: morphine SULFATE/PF (2 MG/2 ML) SYG IV PRN ×2 (05:27→11:35)
[2018-09-18] MEDS: PANTOPRAZOLE (EC) 40 MG TAB PO SCH (05:28)
[2018-09-18] MEDS: FUROSEMIDE 40 MG INJ IV SCH ×2 (05:28→18:00)
--- NOTE | 2018-09-18 07:18 | PN ---
Date/Time of Note Date/Time of Note DATE: 09/18/18 TIME: 07:17 Assessment/Plan Lines/Catheters IV Catheter Type (from [facility]): Saline Lock Assessment/Plan Chief Complaint/Hosp Course -Chronic kidney disease stage IV to V: Seems that the patient's renal failure has been worsened secondary to her diabetes and hypertension. We will plan to create an access for the patient when she has been optimized from a medical standpoint. Will schedule her surgery in the coming days pending optimization -The patient does have adequate vein conduits on her left upper extremity in which we will plan to use for her fistula creation. Will schedule for week -Appreciate nephrology evaluation and optimization -Appreciate cardiology evaluation and optimization -Discussed findings, plan and management with the patient and the family at the bedside. -Optimize vascular status (BP meds, diet, nutrition, exercise, sugar control, antiplatelets). -Thank you for allowing me to participate in the care of this patient. Please call with any questions. Subjective 24 Hr Interval Summary no new vascular events overnight Constitutional: no complaints Exam/Review of Systems Vital Signs Vitals Vital Signs Date Temp Pulse Resp B/P (MAP) Pulse Ox O2 O2 Flow FiO2 Time Delivery Rate 09/22/18 75 12:27 09/22/18 98.3 20 156/80 94 11:15 (105) 09/21/18 Nasal 2.0 15:55 Cannula 09/19/18 21 20:54 Intake and Output 09/21/18 09/21/18 09/22/18 1515:00 23:00 07:00 IntakeIntake Total 100 ml 300 ml 500 ml BalanceBalance 100 ml 300 ml 500 ml Exam Free Text/Dictation GENERAL: Awake and answers simple questions PULMONARY: Coarse breath sounds bilaterally, some crackles at the bases. CARDIOVASCULAR: S1, S2 present. ABDOMEN: Soft, nontender, nondistended. Bowel sounds positive. Truncal obesity. EXTREMITIES: -Right lower extremities: Palpable femoral pulse, faint pedal pulse. Motor, sensory intact. Capillary refill 3 seconds, large leg. -Left lower extremity: Palpable femoral pulse, faint pedal pulse. Motor, sensory intact. Capillary refill 3 seconds. Large leg. -Bilateral upper extremities: Palpable brachial pulse. Motor, sensory intact. Capillary refill 3 seconds. -Right-sided upper and lower extremity: Motor is intact; however, has some weakness and paralysis that appears to be 4/5. Results Result Diagram: 09/22/18 0549 09/22/18 0549 ARIANA BLANK MD Sep 18, 2018 07:18
[2018-09-18] MEDS: CITRIC ACID/NA CITRATE 30 ML CUP PO SCH ×3 (09:44→21:17)
[2018-09-18] MEDS: SERTRALINE 50 MG TAB PO SCH (09:44)
[2018-09-18] MEDS: OLANZAPINE 2.5 MG TAB PO SCH ×2 (09:45→21:16)
[2018-09-18] MEDS: AMLODIPINE 10 MG TAB PO SCH (09:45)
[2018-09-18] MEDS: ISOSORBIDE DINITRATE 20 MG TAB PO SCH ×3 (09:45→21:17)
[2018-09-18] MEDS: ASPIRIN (EC) 81 MG TAB PO SCH (09:45)
[2018-09-18] MEDS: SEVELAMER CARBONATE 800 MG TABLET PO SCH ×3 (09:45→18:00)
[2018-09-18] MEDS: FLUPHENAZINE 5 MG TAB PO SCH (09:45)
[2018-09-18] MEDS: BUPROPION (XL) 150 MG TAB PO SCH (09:45)
[2018-09-18] MEDS: NICOTINE (21 MG/24 HR) PATCH TRANSDERM SCH (09:46)
--- NOTE | 2018-09-18 12:25 | CONS ---
Date/Time of Note Date/Time of Note DATE: 09/18/18 TIME: 12:25 Assessment/Plan Assessment/Plan Assessment/Plan 1. CKD V with worsening renal failure with Fluid overload and pulmonary congestion 2. Severe anemia with Hb 6.7 due to worsening CKD 3. metabolic acidosis 4. Anemia of CKD V s/p 2 units PRBC 5. H/o HTN 6. H/o CHF, acute on chronic diastolic vs systolic 7. H/o Schizophrenia 8. H/o Depression 9. H/o CVA with residual weakness Plan: Lasix 20mg IV BID,BUN/Cr 55/6.0, eGFR 8 Bicitra 30ml PO TID Epogen 6000 units on TTS for anemia Pt has worsening CKD to ESRD now, eGFR 8- discussed with pt about , she wants to wait before doing HD , but she is agreeable to do AVF pt is ok to have AVF will follow up Result Diagram: 09/18/18 0604 09/18/18 0604 Results 24hrs Laboratory Tests Test 09/18/18 06:04 White Blood Count 8.5 Red Blood Count 2.77 L Hemoglobin 8.1 L Hematocrit 24.9 L Mean Corpuscular Volume 89.9 Mean Corpuscular Hemoglobin 29.2 Mean Corpuscular Hemoglobin Concent 32.5 Red Cell Distribution Width 14.6 H Platelet Count 205 Mean Platelet Volume 11.1 H Immature Granulocytes % 0.500 H Neutrophils % 60.9 Lymphocytes % 23.0 Monocytes % 7.7 Eosinophils % 7.4 H Basophils % 0.5 Nucleated Red Blood Cells % 0.0 Immature Granulocytes # 0.040 H Neutrophils # 5.2 Lymphocytes # 2.0 Monocytes # 0.7 Eosinophils # 0.6 H Basophils # 0.0 Nucleated Red Blood Cells # 0.0 Sodium Level 139 Potassium Level 4.2 Chloride Level 107 Carbon Dioxide Level 25 Anion Gap 7 Blood Urea Nitrogen 55 H Creatinine 6.00 H Est Glomerular Filtrat Rate mL/min 8 L Glucose Level 94 Calcium Level 8.2 L Consultation Date/Type/Reason Admit Date/Time Sep 15, 2018 at 10:45 Initial Consult Date 09/15/18 Type of Consult NEPHROLOGY Requesting Provider: ARIANA BLANK MD Exam/Review of Systems Vital Signs Vitals Vital Signs Date Temp Pulse Resp B/P (MAP) Pulse Ox O2 O2 Flow FiO2 Time Delivery Rate 09/18/18 74 12:17 09/18/18 98.0 20 130/60 97 Room Air 11:47 (83) 09/17/18 2.0 20:00 Intake and Output 09/17/18 09/17/18 09/18/18 1515:00 23:00 07:00 IntakeIntake Total 240 ml 760 ml 420 ml BalanceBalance 240 ml 760 ml 420 ml Exam Constitutional: alert, awake, on acute distress Respiratory: crackles/rales, other (Bibasilar crackles, no wheezing ) Cardiovascular: regular rate and rhythm, nl pulses Gastrointestinal: soft, non-tender Musculoskeletal: swelling (1-2+ pittng edema, no clubbing, no cyanosis ) Neurological: CARBONIZER TESTER II-XII intact, nl mental status Medications Medications Current Medications Nicotine (Nicoderm 21 Mg/ 24hr) 1 patch DAILY TRANSDERM Last administered on 09/18/18 09:46; Admin Dose 1 PATCH; Start 09/15/18 at 09:00 Amlodipine Besylate (Norvasc) 10 mg DAILY PO Last administered on 09/18/18 09:45; Admin Dose 10 MG; Start 09/16/18 at 09:00 Aspirin (Halfprin) 81 mg DAILY PO Last administered on 09/18/18 09:45; Admin Dose 81 MG; Start 09/15/18 at 12:00 Atorvastatin Calcium (Lipitor) 20 mg QHS PO Last administered on 09/17/18at 21:36; Admin Dose 20 MG; Start 09/15/18 at 21:00 Bupropion HCl (Wellbutrin Xl) 150 mg DAILY PO Last administered on 09/18/18 09:45; Admin Dose 150 MG; Start 09/16/18 at 09:00 Fluphenazine HCl (Prolixin) 5 mg DAILY PO Last administered on 09/18/18 09:45; Admin Dose 5 MG; Start 09/16/18 at 09:00 Lorazepam (Ativan) 0.5 mg Q4H PRN PO ANXIETY Last administered on 09/15/18 17:46; Admin Dose 0.5 MG; Start 09/15/18 at 12:00 Sertraline HCl (Zoloft) 25 mg DAILY PO Last administered on 09/18/18 09:44; Admin Dose 25 MG; Start 09/16/18 at 09:00 Trazodone HCl (Desyrel) 50 mg QHS PO Last administered on 09/17/18 21:36; Admin Dose 50 MG; Start 09/15/18 at 21:00 IV Flush (NS 3 ml) 3 ml PER PROTOCOL IV ; Start 09/15/18 at 12:00 Ondansetron HCl (Zofran Inj) 4 mg Q6H PRN IV NAUSEA AND/OR VOMITING; Start 09/15/18 at 12:00 Albuterol (Proventil 0.083% (Neb)) 2.5 mg Q2H RESP THERAPY PRN NEB SHORTNESS OF BREATH Last administered on 09/15/18 21:44; Admin Dose 2.5 MG; Start 09/15/18 at 12:00 Ipratropium [place] (Atrovent 0.02% (Neb)) 0.5 mg Q2H RESP THERAPY PRN NEB SHORTNESS OF BREATH Last administered on 09/15/18at 21:44; Admin Dose 0.5 MG; Start 09/15/18 at 12:00 Acetaminophen (Tylenol Liquid) 650 mg Q6H PRN PO PAIN LEVEL 1-3 OR FEVER Last administered on 09/15/18at 15:05; Admin Dose 650 MG; Start 09/15/18 at 12:00 Lorazepam (Ativan) 1 mg Q2H PRN IV ANXIETY; Start 09/15/18 at 12:00 Docusate Sodium (Colace) 100 mg Q12H PRN PO CONSTIPATION; Start 09/15/18 at 12:00 Pantoprazole (Protonix Tab) 40 mg DAILY@06 PO Last administered on 09/18/18at 0 5:28; Admin Dose 40 MG; Start 09/16/18 at 06:00 Citric Acid/ Sodium Citrate (Bicitra) 30 ml TID PO Last administered on 09/18/18 09:44; Admin Dose 30 ML; Start 09/15/18 at 16:00 Sevelamer Carbonate (Renvela) 1,600 mg WITH MEALS PO Last administered on 09/18/18at 11:34; Admin Dose 1,600 MG; Start 09/16/18 at 07:35 Epoetin Jimmy (Epogen (Non Esrd/Non Oncology)) 6,000 units TuThSa@17 SC Last administered on 09/17/18 17:54; Admin Dose 6,000 UNITS; Start 09/15/18 at 20:00 Olanzapine (Zyprexa) 2.5 mg BID PO Last administered on 09/18/18at 09:45; Admin Dose 2.5 MG; Start 09/15/18 at 22:00 Hydralazine HCl (Apresoline) 10 mg Q4 PRN IV ELEVATED BLOOD PRESSURE; Start 09/16/18 at 13:30 Isosorbide Dinitrate (Isordil) 20 mg TID PO Last administered on 09/18/18at 09:45; Admin Dose 20 MG; Start 09/16/18 at 21:00 Hydralazine HCl (Apresoline) 75 mg Q8 PO Last administered on 09/18/18 05:28; Admin Dose 75 MG; Start 09/17/18 at 14:00 Furosemide (Lasix) 20 mg BID DIURETICS IV Last administered on 09/18/18 05:28; Admin Dose 20 MG; Start 09/18/18 at 06:00 Morphine Sulfate (morphine SULFATE (PF)) 2 mg Q4H PRN IV PAIN LEVEL 7-10 Last administered on 09/18/18at 11:35; Admin Dose 2 MG; Start 09/17/18 at 22:57 ISABELLE BROWNING MD Sep 18, 2018 12:25
--- NOTE | 2018-09-18 13:10 | PN ---
Date/Time of Note Date/Time of Note DATE: 09/18/18 TIME: 13:09 Assessment/Plan VTE Prophylaxis Risk score (from [facility]0 risk: 8 SCD applied (from [facility]): No SCD contraindicated: other Pharmacological prophylaxis: other Pharm contraindication: other Lines/Catheters IV Catheter Type (from [facility]): Saline Lock Assessment/Plan Assessment/Plan -Pulmonary congestion, s/p Lasix -Acute anemia, status post blood transfusion -Chronic kidney disease stage IV 5 with progression to end-stage renal disease. Patient need to be initiated on hemodialysis. Dr. Panda is following in nephrology consultation. -Congestive heart failure, will obtain 2D echo. Dr. Shields is following in cardiology consultation -Hypertension, continue hydralazine -Schizophrenia, continue patient's antipsychotic medications Further recommendations based on clinical course. Plan of care discussed with Dr. Carrero. Result Diagram: 09/18/18 0604 09/18/18 0604 Results 24hrs Laboratory Tests Test 09/18/18 06:04 White Blood Count 8.5 Red Blood Count 2.77 L Hemoglobin 8.1 L Hematocrit 24.9 L Mean Corpuscular Volume 89.9 Mean Corpuscular Hemoglobin 29.2 Mean Corpuscular Hemoglobin Concent 32.5 Red Cell Distribution Width 14.6 H Platelet Count 205 Mean Platelet Volume 11.1 H Immature Granulocytes % 0.500 H Neutrophils % 60.9 Lymphocytes % 23.0 Monocytes % 7.7 Eosinophils % 7.4 H Basophils % 0.5 Nucleated Red Blood Cells % 0.0 Immature Granulocytes # 0.040 H Neutrophils # 5.2 Lymphocytes # 2.0 Monocytes # 0.7 Eosinophils # 0.6 H Basophils # 0.0 Nucleated Red Blood Cells # 0.0 Sodium Level 139 Potassium Level 4.2 Chloride Level 107 Carbon Dioxide Level 25 Anion Gap 7 Blood Urea Nitrogen 55 H Creatinine 6.00 H Est Glomerular Filtrat Rate mL/min 8 L Glucose Level 94 Calcium Level 8.2 L Subjective 24 Hr Interval Summary Free Text/Dictation Plan for AVF placement today Exam/Review of Systems Vital Signs Vitals Vital Signs Date Temp Pulse Resp B/P (MAP) Pulse Ox O2 O2 Flow FiO2 Time Delivery Rate 09/18/18 74 12:17 09/18/18 98.0 20 130/60 97 Room Air 11:47 (83) 09/17/18 2.0 20:00 Intake and Output 09/17/18 09/17/18 09/18/18 1414:59 22:59 06:59 IntakeIntake Total 240 ml 760 ml BalanceBalance 240 ml 760 ml Medications Medications Current Medications Nicotine (Nicoderm 21 Mg/ 24hr) 1 patch DAILY TRANSDERM Last administered on 09/18/18 09:46; Admin Dose 1 PATCH; Start 09/15/18 at 09:00 Amlodipine Besylate (Norvasc) 10 mg DAILY PO Last administered on 09/18/18 09:45; Admin Dose 10 MG; Start 09/16/18 at 09:00 Aspirin (Halfprin) 81 mg DAILY PO Last administered on 09/18/18 09:45; Admin Dose 81 MG; Start 09/15/18 at 12:00 Atorvastatin Calcium (Lipitor) 20 mg QHS PO Last administered on 09/17/18 21:36; Admin Dose 20 MG; Start 09/15/18 at 21:00 Bupropion HCl (Wellbutrin Xl) 150 mg DAILY PO Last administered on 09/18/18 09:45; Admin Dose 150 MG; Start 09/16/18 at 09:00 Fluphenazine HCl (Prolixin) 5 mg DAILY PO Last administered on 09/18/18 09:45; Admin Dose 5 MG; Start 09/16/18 at 09:00 Lorazepam (Ativan) 0.5 mg Q4H PRN PO ANXIETY Last administered on 09/15/18 17:46; Admin Dose 0.5 MG; Start 09/15/18 at 12:00 Sertraline HCl (Zoloft) 25 mg DAILY PO Last administered on 09/18/18 09:44; Admin Dose 25 MG; Start 09/16/18 at 09:00 Trazodone HCl (Desyrel) 50 mg QHS PO Last administered on 09/17/18 21:36; Admin Dose 50 MG; Start 09/15/18 at 21:00 IV Flush (NS 3 ml) 3 ml PER PROTOCOL IV ; Start 09/15/18 at 12:00 Ondansetron HCl (Zofran Inj) 4 mg Q6H PRN IV NAUSEA AND/OR VOMITING; Start 09/15/18 at 12:00 Albuterol (Proventil 0.083% (Neb)) 2.5 mg Q2H RESP THERAPY PRN NEB SHORTNESS OF BREATH Last administered on 09/15/18 21:44; Admin Dose 2.5 MG; Start 09/15/18 at 12:00 Ipratropium [place] (Atrovent 0.02% (Neb)) 0.5 mg Q2H RESP THERAPY PRN NEB SHORTNESS OF BREATH Last administered on 09/15/18 21:44; Admin Dose 0.5 MG; Start 09/15/18 at 12:00 Acetaminophen (Tylenol Liquid) 650 mg Q6H PRN PO PAIN LEVEL 1-3 OR FEVER Last administered on 09/15/18 15:05; Admin Dose 650 MG; Start 09/15/18 at 12:00 Lorazepam (Ativan) 1 mg Q2H PRN IV ANXIETY; Start 09/15/18 at 12:00 Docusate Sodium (Colace) 100 mg Q12H PRN PO CONSTIPATION; Start 09/15/18 at 12:00 Pantoprazole (Protonix Tab) 40 mg DAILY@06 PO Last administered on 09/18/18 05:28; Admin Dose 40 MG; Start 09/16/18 at 06:00 Citric Acid/ Sodium Citrate (Bicitra) 30 ml TID PO Last administered on 9at 09:44; Admin Dose 30 ML; Start 09/15/18 at 16:00 Sevelamer Carbonate (Renvela) 1,600 mg WITH MEALS PO Last administered on 09/18/18 11:34; Admin Dose 1,600 MG; Start 09/16/18 at 07:35 Epoetin [place] (Epogen (Non Esrd/Non Oncology)) 6,000 units TuThSa@17 SC Last administered on 09/17/18 17:54; Admin Dose 6,000 UNITS; Start 09/15/18 at 20:00 Olanzapine (Zyprexa) 2.5 mg BID PO Last administered on 09/18/18 09:45; Admin Dose 2.5 MG; Start 09/15/18 at 22:00 Hydralazine HCl (Apresoline) 10 mg Q4 PRN IV ELEVATED BLOOD PRESSURE; Start 09/16/18 at 13:30 Isosorbide Dinitrate (Isordil) 20 mg TID PO Last administered on 09/18/18 09:45; Admin Dose 20 MG; Start 09/16/18 at 21:00 Hydralazine HCl (Apresoline) 75 mg Q8 PO Last administered on 09/18/18at 05:28; Admin Dose 75 MG; Start 09/17/18 at 14:00 Furosemide (Lasix) 20 mg BID DIURETICS IV Last administered on 09/18/18 05:28; Admin Dose 20 MG; Start 09/18/18 at 06:00 Morphine Sulfate (morphine SULFATE (PF)) 2 mg Q4H PRN IV PAIN LEVEL 7-10 Last administered on 09/18/18at 11:35; Admin Dose 2 MG; Start 09/17/18 at 22:57 JUSTYNA CRAWFORD Sep 18, 2018 13:10
--- NOTE | 2018-09-18 16:15 | CONS ---
Date/Time of Note Date/Time of Note DATE: 09/18/18 TIME: 16:13 Assessment/Plan Assessment/Plan Hospital Course IMPRESSION: 1. Preoperative evaluation in patient who is to undergo creation of AV fistula.-neg trop x 3. NL EF by echo. Once volume status and BP improved then patient is moderate CV risk for the procedure 2. Congestive heart failure by chest x-ray, question systolic versus diastolic, likely acute on chronic and possibly more in the setting of volume overload in the setting of renal failure. 3. Hypertension, uncontrolled. 4. History of cerebrovascular accident with right-sided weakness. 5. History of traumatic brain injury. 6. Chronic kidney disease, to be started on hemodialysis. 7. Psychiatric disorder. 8. Severe anemia, status post transfusions. Recc: -Tele -serial ecg's -Increase baseline hydralazine -Continue norvasc/isordil -Continue lasix diuresis and follow volume status clsoely Result Diagram: 09/18/18 0604 09/18/18 0604 Results 24hrs Laboratory Tests Test 09/18/18 06:04 White Blood Count 8.5 Red Blood Count 2.77 L Hemoglobin 8.1 L Hematocrit 24.9 L Mean Corpuscular Volume 89.9 Mean Corpuscular Hemoglobin 29.2 Mean Corpuscular Hemoglobin Concent 32.5 Red Cell Distribution Width 14.6 H Platelet Count 205 Mean Platelet Volume 11.1 H Immature Granulocytes % 0.500 H Neutrophils % 60.9 Lymphocytes % 23.0 Monocytes % 7.7 Eosinophils % 7.4 H Basophils % 0.5 Nucleated Red Blood Cells % 0.0 Immature Granulocytes # 0.040 H Neutrophils # 5.2 Lymphocytes # 2.0 Monocytes # 0.7 Eosinophils # 0.6 H Basophils # 0.0 Nucleated Red Blood Cells # 0.0 Sodium Level 139 Potassium Level 4.2 Chloride Level 107 Carbon Dioxide Level 25 Anion Gap 7 Blood Urea Nitrogen 55 H Creatinine 6.00 H Est Glomerular Filtrat Rate mL/min 8 L Glucose Level 94 Calcium Level 8.2 L Consultation Date/Type/Reason Admit Date/Time Sep 15, 2018 at 10:45 Initial Consult Date 09/15/18 Type of Consult cardiology Reason for Consultation Preop Requesting Provider: ARIANA BLANK MD Exam/Review of Systems Vital Signs Vitals Vital Signs Date Temp Pulse Resp B/P (MAP) Pulse Ox O2 O2 Flow FiO2 Time Delivery Rate 09/18/18 74 12:17 09/18/18 98.0 20 130/60 97 Room Air 11:47 (83) 09/18/18 2.0 07:20 Intake and Output 09/17/18 09/17/18 09/18/18 1515:00 23:00 07:00 IntakeIntake Total 240 ml 760 ml 420 ml BalanceBalance 240 ml 760 ml 420 ml Exam Review of Systems: CONSTITUTIONAL: No fevers, chills. PULMONARY: No sob CARDIOVASCULAR: No chest pain/palpitations GASTROINTESTINAL: No nausea/vomiting. GENITOURINARY: No hematuria/dysuria. MUSCULOSKELETAL: No myagias/arthalgias. PSYCHIATRIC: The patient denies depression. NEUROLOGIC: No weakness Constitutional: alert Psych: no complaints Head: normocephalic ENMT: mucosa pink and moist Neck: supple, jvd (9 cm water) Respiratory: diminished breath sounds Cardiovascular: regular rate and rhythm Gastrointestinal: soft, non-tender Musculoskeletal: muscle tone Extremities: edema (none) Neurological: other (No focal deficits) Medications Medications Current Medications Nicotine (Nicoderm 21 Mg/ 24hr) 1 patch DAILY TRANSDERM Last administered on 09/18/18at 09:46; Admin Dose 1 PATCH; Start 09/15/18 at 09:00 Amlodipine Besylate (Norvasc) 10 mg DAILY PO Last administered on 09/18/18at 09:45; Admin Dose 10 MG; Start 09/16/18 at 09:00 Aspirin (Halfprin) 81 mg DAILY PO Last administered on 09/18/18at 09:45; Admin Dose 81 MG; Start 09/15/18 at 12:00 Atorvastatin Calcium (Lipitor) 20 mg QHS PO Last administered on 09/17/18at 2 1:36; Admin Dose 20 MG; Start 09/15/18 at 21:00 Bupropion HCl (Wellbutrin Xl) 150 mg DAILY PO Last administered on 09/18/18at 09:45; Admin Dose 150 MG; Start 09/16/18 at 09:00 Fluphenazine HCl (Prolixin) 5 mg DAILY PO Last administered on 09/18/18at 09:45; Admin Dose 5 MG; Start 09/16/18 at 09:00 Lorazepam (Ativan) 0.5 mg Q4H PRN PO ANXIETY Last administered on 09/15/18 17:46; Admin Dose 0.5 MG; Start 09/15/18 at 12:00 Sertraline HCl (Zoloft) 25 mg DAILY PO Last administered on 09/18/18at 09:44; Admin Dose 25 MG; Start 09/16/18 at 09:00 Trazodone HCl (Desyrel) 50 mg QHS PO Last administered on 09/17/18at 21:36; Admin Dose 50 MG; Start 09/15/18 at 21:00 IV Flush (NS 3 ml) 3 ml PER PROTOCOL IV ; Start 09/15/18 at 12:00 Ondansetron HCl (Zofran Inj) 4 mg Q6H PRN IV NAUSEA AND/OR VOMITING; Start 09/15/18 at 12:00 Albuterol (Proventil 0.083% (Neb)) 2.5 mg Q2H RESP THERAPY PRN NEB SHORTNESS OF BREATH Last administered on 09/15/18at 21:44; Admin Dose 2.5 MG; Start 09/15/18 at 12:00 Ipratropium [place] (Atrovent 0.02% (Neb)) 0.5 mg Q2H RESP THERAPY PRN NEB SHORTNESS OF BREATH Last administered on 09/15/18 21:44; Admin Dose 0.5 MG; Start 09/15/18 at 12:00 Acetaminophen (Tylenol Liquid) 650 mg Q6H PRN PO PAIN LEVEL 1-3 OR FEVER Last administered on 09/15/18at 15:05; Admin Dose 650 MG; Start 09/15/18 at 12:00 Lorazepam (Ativan) 1 mg Q2H PRN IV ANXIETY; Start 09/15/18 at 12:00 Docusate Sodium (Colace) 100 mg Q12H PRN PO CONSTIPATION; Start 09/15/18 at 12:00 Pantoprazole (Protonix Tab) 40 mg DAILY@06 PO Last administered on 09/18/18at 05:28; Admin Dose 40 MG; Start 09/16/18 at 06:00 Citric Acid/ Sodium Citrate (Bicitra) 30 ml TID PO Last administered on 09/18/18at 13:00; Admin Dose 30 ML; Start 09/15/18 at 16:00 Sevelamer Carbonate (Renvela) 1,600 mg WITH MEALS PO Last administered on 09/18/18 11:34; Admin Dose 1,600 MG; Start 09/16/18 at 07:35 Epoetin [place] (Epogen (Non Esrd/Non Oncology)) 6,000 units TuThSa@17 SC Last administered on 09/17/18 17:54; Admin Dose 6,000 UNITS; Start 09/15/18 at 20:00 Olanzapine (Zyprexa) 2.5 mg BID PO Last administered on 09/18/18 09:45; Admin Dose 2.5 MG; Start 09/15/18 at 22:00 Hydralazine HCl (Apresoline) 10 mg Q4 PRN IV ELEVATED BLOOD PRESSURE; Start 09/16/18 at 13:30 Isosorbide Dinitrate (Isordil) 20 mg TID PO Last administered on 09/18/18at 13:00; Admin Dose 20 MG; Start 09/16/18 at 21:00 Hydralazine HCl (Apresoline) 75 mg Q8 PO Last administered on 09/18/18 14:48; Admin Dose 75 MG; Start 09/17/18 at 14:00 Furosemide (Lasix) 20 mg BID DIURETICS IV Last administered on 09/18/18 05:28; Admin Dose 20 MG; Start 09/18/18 at 06:00 Morphine Sulfate (morphine SULFATE (PF)) 2 mg Q4H PRN IV PAIN LEVEL 7-10 Last administered on 09/18/18 11:35; Admin Dose 2 MG; Start 09/17/18 at 22:57 ISABELLA MEZA Sep 18, 2018 16:15
--- NOTE | 2018-09-18 18:50 | NUR ---
EOSS- Pt resting in bed, still has some complaints of lower back pain. We are still awaiting cardiac clearance for fistula placement. Will continue to monitor pt and endorse care to nightshift.
[2018-09-18] MEDS: ATORVASTATIN 20 MG TAB PO SCH (21:16)
[2018-09-18] MEDS: traZODone 50 MG TAB PO SCH (21:16)
[2018-09-19] VITALS (11 sets, daily range): BP systolic 134–168; BP diastolic 65–86; PULSE 67–79; RESP 18–20
[2018-09-19] MEDS: LORAZEPAM 0.5 MG TAB PO PRN
[2018-09-19] MEDS: PANTOPRAZOLE (EC) 40 MG TAB PO SCH (06:31)
[2018-09-19] MEDS: FUROSEMIDE 40 MG INJ IV SCH ×2 (06:32→17:59)
[2018-09-19] MEDS: SEVELAMER CARBONATE 800 MG TABLET PO SCH ×3 (07:52→17:57)
[2018-09-19] MEDS: BUPROPION (XL) 150 MG TAB PO SCH (08:52)
[2018-09-19] MEDS: OLANZAPINE 2.5 MG TAB PO SCH (08:52)
[2018-09-19] MEDS: CITRIC ACID/NA CITRATE 30 ML CUP PO SCH ×3 (08:52→21:26)
[2018-09-19] MEDS: SERTRALINE 50 MG TAB PO SCH (08:53)
[2018-09-19] MEDS: ASPIRIN (EC) 81 MG TAB PO SCH (08:53)
[2018-09-19] MEDS: AMLODIPINE 10 MG TAB PO SCH (08:53)
[2018-09-19] MEDS: ISOSORBIDE DINITRATE 20 MG TAB PO SCH ×3 (08:54→21:18)
[2018-09-19] MEDS: NICOTINE (21 MG/24 HR) PATCH TRANSDERM SCH (08:55)
[2018-09-19] MEDS: FLUPHENAZINE 5 MG TAB PO SCH (08:58)
--- NOTE | 2018-09-19 13:34 | CONS ---
Date/Time of Note Date/Time of Note DATE: 09/19/18 TIME: 13:32 Assessment/Plan Assessment/Plan Assessment/Plan 1. Preoperative evaluation in patient who is to undergo creation of AV fistula.-neg trop x 3. NL EF by echo. Once volume status and BP improved then patient is moderate CV risk for the procedure - blood transfusion given. 2. Congestive heart failure by chest x-ray, question systolic versus diastolic, likely acute on chronic and possibly more in the setting of volume overload in the setting of renal failure. 3. Hypertension, uncontrolled - better now, although overall labile. 4. History of cerebrovascular accident with right-sided weakness. 5. History of traumatic brain injury. 6. Chronic kidney disease, to be started on hemodialysis - defer to renal team. 7. Psychiatric disorder. 8. Severe anemia, status post transfusions - H/H stable. Result Diagram: 09/19/1871809/19/1819 Results 24hrs Laboratory Tests Test 09/19/18 07:19 White Blood Count 8.3 Red Blood Count 2.65 L Hemoglobin 7.9 L Hematocrit 24.2 L Mean Corpuscular Volume 91.3 Mean Corpuscular Hemoglobin 29.8 Mean Corpuscular Hemoglobin Concent 32.6 Red Cell Distribution Width 14.5 Platelet Count 231 Mean Platelet Volume 11.3 H Immature Granulocytes % 0.400 Neutrophils % 61.5 Lymphocytes % 21.0 Monocytes % 8.2 Eosinophils % 8.4 H Basophils % 0.5 Nucleated Red Blood Cells % 0.0 Immature Granulocytes # 0.030 Neutrophils # 5.1 Lymphocytes # 1.7 Monocytes # 0.7 Eosinophils # 0.7 H Basophils # 0.0 Nucleated Red Blood Cells # 0.0 Sodium Level 136 Potassium Level 4.5 Chloride Level 102 Carbon Dioxide Level 26 Anion Gap 8 Blood Urea Nitrogen 55 H Creatinine 6.19 H Est Glomerular Filtrat Rate mL/min 8 L Glucose Level 89 Calcium Level 8.1 L Consultation Date/Type/Reason Admit Date/Time Sep 15, 2018 at 10:45 Initial Consult Date 09/15/18 Requesting Provider: ARIANA BLANK MD 24 HR Interval Summary Free Text/Dictation NO acute events - responded to blood Tx - stable overall. ROS: No fever, no chills, no nausea, no vomiting, no diarrhea/constipation No recent weight changes No chest pain, no PND, no orthopnea - improved SOB No dizziness, blurred vision No thirst, no heat or cold intolerance Exam/Review of Systems Vital Signs Vitals Vital Signs Date Temp Pulse Resp B/P (MAP) Pulse Ox O2 O2 Flow FiO2 Time Delivery Rate 09/19/18 78 13:19 09/19/18 98.0 20 134/65 96 Nasal 11:35 (88) Cannula 09/19/18 2.0 08:00 Intake and Output 09/18/18 09/18/18 09/19/18 1414:59 22:59 06:59 IntakeIntake Total 420 ml 550 ml BalanceBalance 420 ml 550 ml Exam General: WN/WD/NAD, AOx 3 HEENT: Unicetric/atraumatic/EOMI (follow commands) NECK: JVD elevated, no thyromegaly Lymph: no lymphadenopathy HEART: regular with no S3, II/ systolic murmur at apex, PMI L LUNGS: Coarse sounds ABD: soft, NT, ND, +BS : Intact Neuro: non focal SKIN: chronic changes EXT: trace edema Medications Medications Current Medications Nicotine (Nicoderm 21 Mg/ 24hr) 1 patch DAILY TRANSDERM Last administered on 09/19/18 08:55; Admin Dose 1 PATCH; Start 09/15/18 at 09:00 Amlodipine Besylate (Norvasc) 10 mg DAILY PO Last administered on 09/19/18 08:53; Admin Dose 10 MG; Start 09/16/18 at 09:00 Aspirin (Halfprin) 81 mg DAILY PO Last administered on 09/19/18 08:53; Admin Dose 81 MG; Start 09/15/18 at 12:00 Atorvastatin Calcium (Lipitor) 20 mg QHS PO Last administered on 09/18/18at 21:16; Admin Dose 20 MG; Start 09/15/18 at 21:00 Bupropion HCl (Wellbutrin Xl) 150 mg DAILY PO Last administered on 09/19/18 08:52; Admin Dose 150 MG; Start 09/16/18 at 09:00 Fluphenazine HCl (Prolixin) 5 mg DAILY PO Last administered on 09/18/18at 09:45; Admin Dose 5 MG; Start 09/16/18 at 09:00 Lorazepam (Ativan) 0.5 mg Q4H PRN PO ANXIETY Last administered on 09/19/18at 00:00; Admin Dose 0.5 MG; Start 09/15/18 at 12:00 Sertraline HCl (Zoloft) 25 mg DAILY PO Last administered on 09/19/18 08:53; Admin Dose 25 MG; Start 09/16/18 at 09:00 Trazodone HCl (Desyrel) 50 mg QHS PO Last administered on 09/18/18 21:16; Admin Dose 50 MG; Start 09/15/18 at 21:00 IV Flush (NS 3 ml) 3 ml PER PROTOCOL IV ; Start 09/15/18 at 12:00 Ondansetron HCl (Zofran Inj) 4 mg Q6H PRN IV NAUSEA AND/OR VOMITING; Start 09/15/18 at 12:00 Albuterol (Proventil 0.083% (Neb)) 2.5 mg Q2H RESP THERAPY PRN NEB SHORTNESS OF BREATH Last administered on 09/15/18 21:44; Admin Dose 2.5 MG; Start 09/15/18 at 12:00 Ipratropium [place] (Atrovent 0.02% (Neb)) 0.5 mg Q2H RESP THERAPY PRN NEB SHORTNESS OF BREATH Last administered on 09/15/18 21:44; Admin Dose 0.5 MG; Start 09/15/18 at 12:00 Acetaminophen (Tylenol Liquid) 650 mg Q6H PRN PO PAIN LEVEL 1-3 OR FEVER Last administered on 09/15/18 15:05; Admin Dose 650 MG; Start 09/15/18 at 12:00 Lorazepam (Ativan) 1 mg Q2H PRN IV ANXIETY; Start 09/15/18 at 12:00 Docusate Sodium (Colace) 100 mg Q12H PRN PO CONSTIPATION; Start 09/15/18 at 12:00 Pantoprazole (Protonix Tab) 40 mg DAILY@06 PO Last administered on 09/19/18 06:31; Admin Dose 40 MG; Start 09/16/18 at 06:00 Citric Acid/ Sodium Citrate (Bicitra) 30 ml TID PO Last administered on 09/19/18 08:52; Admin Dose 30 ML; Start 09/15/18 at 16:00 Sevelamer Carbonate (Renvela) 1,600 mg WITH MEALS PO Last administered on 1/18/19at 18:00; Admin Dose 1,600 MG; Start 09/16/18 at 07:35 Epoetin [place] (Epogen (Non Esrd/Non Oncology)) 6,000 units TuThSa@17 SC Last administered on 09/17/18at 17:54; Admin Dose 6,000 UNITS; Start 09/15/18 at 20:00 Olanzapine (Zyprexa) 2.5 mg BID PO Last administered on 09/19/18 08:52; Admin Dose 2.5 MG; Start 09/15/18 at 22:00 Hydralazine HCl (Apresoline) 10 mg Q4 PRN IV ELEVATED BLOOD PRESSURE; Start 09/16/18 at 13:30 Isosorbide Dinitrate (Isordil) 20 mg TID PO Last administered on 09/19/18at 08:54; Admin Dose 20 MG; Start 09/16/18 at 21:00 Furosemide (Lasix) 20 mg BID DIURETICS IV Last administered on 09/19/18at 06:32; Admin Dose 20 MG; Start 09/18/18 at 06:00 Morphine Sulfate (morphine SULFATE (PF)) 2 mg Q4H PRN IV PAIN LEVEL 7-10 Last administered on 09/18/18at 11:35; Admin Dose 2 MG; Start 09/17/18 at 22:57 Hydralazine HCl (Apresoline) 100 mg Q8 PO Last administered on 09/19/18at 06:32; Admin Dose 100 MG; Start 09/18/18 at 22:00 MAYELIN OLIVAS MD Sep 19, 2018 13:34
--- NOTE | 2018-09-19 15:08 | PN ---
Date/Time of Note Date/Time of Note DATE: 09/19/18 TIME: 15:08 Assessment/Plan VTE Prophylaxis Risk score (from Ns)>0 risk: 8 SCD applied (from Nsg): No Lines/Catheters IV Catheter Type (from Nrs): Saline Lock Assessment/Plan Assessment/Plan -Pulmonary congestion, s/p Lasix -Acute anemia, status post blood transfusion -Chronic kidney disease stage IV 5 with progression to end-stage renal disease. Patient need to be initiated on hemodialysis. Dr. Panda is following in nephrology consultation. -Congestive heart failure, will obtain 2D echo. Dr. Shields is following in cardiology consultation -Hypertension, continue hydralazine -Schizophrenia, continue patient's antipsychotic medications Further recommendations based on clinical course. Plan of care discussed with Dr. Carrero. Result Diagram: 09/19/1819 09/19/18718 Results 24hrs Laboratory Tests Test 09/19/18 07:19 White Blood Count 8.3 Red Blood Count 2.65 L Hemoglobin 7.9 L Hematocrit 24.2 L Mean Corpuscular Volume 91.3 Mean Corpuscular Hemoglobin 29.8 Mean Corpuscular Hemoglobin Concent 32.6 Red Cell Distribution Width 14.5 Platelet Count 231 Mean Platelet Volume 11.3 H Immature Granulocytes % 0.400 Neutrophils % 61.5 Lymphocytes % 21.0 Monocytes % 8.2 Eosinophils % 8.4 H Basophils % 0.5 Nucleated Red Blood Cells % 0.0 Immature Granulocytes # 0.030 Neutrophils # 5.1 Lymphocytes # 1.7 Monocytes # 0.7 Eosinophils # 0.7 H Basophils # 0.0 Nucleated Red Blood Cells # 0.0 Sodium Level 136 Potassium Level 4.5 Chloride Level 102 Carbon Dioxide Level 26 Anion Gap 8 Blood Urea Nitrogen 55 H Creatinine 6.19 H Est Glomerular Filtrat Rate mL/min 8 L Glucose Level 89 Calcium Level 8.1 L Exam/Review of Systems Vital Signs Vitals Vital Signs Date Temp Pulse Resp B/P (MAP) Pulse Ox O2 O2 Flow FiO2 Time Delivery Rate 09/19/18 78 13:19 09/19/18 98.0 20 134/65 96 Nasal 11:35 (88) Cannula 09/19/18 2.0 08:00 Intake and Output 09/18/18 09/18/18 09/19/18 1515:00 23:00 07:00 IntakeIntake Total 550 ml BalanceBalance 550 ml Medications Medications Current Medications Nicotine (Nicoderm 21 Mg/ 24hr) 1 patch DAILY TRANSDERM Last administered on 09/19/18 08:55; Admin Dose 1 PATCH; Start 09/15/18 at 09:00 Amlodipine Besylate (Norvasc) 10 mg DAILY PO Last administered on 09/19/18 08:53; Admin Dose 10 MG; Start 09/16/18 at 09:00 Aspirin (Halfprin) 81 mg DAILY PO Last administered on 09/19/18 08:53; Admin Dose 81 MG; Start 09/15/18 at 12:00 Atorvastatin Calcium (Lipitor) 20 mg QHS PO Last administered on 09/18/18 21:16; Admin Dose 20 MG; Start 09/15/18 at 21:00 Bupropion HCl (Wellbutrin Xl) 150 mg DAILY PO Last administered on 09/19/18 08:52; Admin Dose 150 MG; Start 09/16/18 at 09:00 Fluphenazine HCl (Prolixin) 5 mg DAILY PO Last administered on 09/18/18 09:45; Admin Dose 5 MG; Start 09/16/18 at 09:00 Lorazepam (Ativan) 0.5 mg Q4H PRN PO ANXIETY Last administered on 09/19/18 00: 00; Admin Dose 0.5 MG; Start 09/15/18 at 12:00 Sertraline HCl (Zoloft) 25 mg DAILY PO Last administered on 09/19/18 08:53; Admin Dose 25 MG; Start 09/16/18 at 09:00 Trazodone HCl (Desyrel) 50 mg QHS PO Last administered on 09/18/18 21:16; Admin Dose 50 MG; Start 09/15/18 at 21:00 IV Flush (NS 3 ml) 3 ml PER PROTOCOL IV ; Start 09/15/18 at 12:00 Ondansetron HCl (Zofran Inj) 4 mg Q6H PRN IV NAUSEA AND/OR VOMITING; Start 09/15/18 at 12:00 Albuterol (Proventil 0.083% (Neb)) 2.5 mg Q2H RESP THERAPY PRN NEB SHORTNESS OF BREATH Last administered on 09/15/18 21:44; Admin Dose 2.5 MG; Start 09/15/18 at 12:00 Ipratropium [place] (Atrovent 0.02% (Neb)) 0.5 mg Q2H RESP THERAPY PRN NEB SHORTNESS OF BREATH Last administered on 09/15/18at 21:44; Admin Dose 0.5 MG; Start 09/15/18 at 12:00 Acetaminophen (Tylenol Liquid) 650 mg Q6H PRN PO PAIN LEVEL 1-3 OR FEVER Last administered on 09/15/18at 15:05; Admin Dose 650 MG; Start 09/15/18 at 12:00 Lorazepam (Ativan) 1 mg Q2H PRN IV ANXIETY; Start 09/15/18 at 12:00 Docusate Sodium (Colace) 100 mg Q12H PRN PO CONSTIPATION; Start 09/15/18 at 12:00 Pantoprazole (Protonix Tab) 40 mg DAILY@06 PO Last administered on 09/19/18 06:31; Admin Dose 40 MG; Start 09/16/18 at 06:00 Citric Acid/ Sodium Citrate (Bicitra) 30 ml TID PO Last administered on 08:52; Admin Dose 30 ML; Start 09/15/18 at 16:00 Sevelamer Carbonate (Renvela) 1,600 mg WITH MEALS PO Last administered on 09/18/18 18:00; Admin Dose 1,600 MG; Start 09/16/18 at 07:35 Epoetin [place] (Epogen (Non Esrd/Non Oncology)) 6,000 units TuThSa@17 SC Last administered on 09/17/18 17:54; Admin Dose 6,000 UNITS; Start 09/15/18 at 20:00 Olanzapine (Zyprexa) 2.5 mg BID PO Last administered on 09/19/18 08:52; Admin Dose 2.5 MG; Start 09/15/18 at 22:00 Hydralazine HCl (Apresoline) 10 mg Q4 PRN IV ELEVATED BLOOD PRESSURE; Start 09/16/18 at 13:30 Isosorbide Dinitrate (Isordil) 20 mg TID PO Last administered on 09/19/18 08:54; Admin Dose 20 MG; Start 09/16/18 at 21:00 Furosemide (Lasix) 20 mg BID DIURETICS IV Last administered on 09/19/18 06:32; Admin Dose 20 MG; Start 09/18/18 at 06:00 Morphine Sulfate (morphine SULFATE (PF)) 2 mg Q4H PRN IV PAIN LEVEL 7-10 Last administered on 09/18/18at 11:35; Admin Dose 2 MG; Start 09/17/18 at 22:57 Hydralazine HCl (Apresoline) 100 mg Q8 PO Last administered on 09/19/18at 06:32; Admin Dose 100 MG; Start 09/18/18 at 22:00 JUSTYNA CRAWFORD Sep 19, 2018 15:08
[2018-09-19] MEDS: EPOETIN 3000 UNITS/ML (NON ESRD/NON ONCOLOGY) SC SCH (18:04)
--- NOTE | 2018-09-19 19:01 | NUR ---
EOSS:PT WAS ON NPO DURING MORNING AND EARLY AFTERNOON. DR BLANK TO PERFORM AV FISTULA CREATION.HOWEVER CANCELLED AT 1500.PT RESUMED DIET. AMBULATED ON HALLWAYS WITH ASSIST.ALL NEEDS MET. CONTINUE POC.
[2018-09-19] MEDS: ALBUTEROL 0.083% (NEB) 2.5 MG/3 ML AMP NEB PRN (20:56)
[2018-09-19] MEDS: OLANZAPINE 5 MG TAB PO SCH (21:18)
[2018-09-19] MEDS: ATORVASTATIN 20 MG TAB PO SCH (21:18)
[2018-09-19] MEDS: traZODone 50 MG TAB PO SCH (21:18)
[2018-09-19] MEDS: ACETAMINOPHEN 650MG/20.3ML CUP PO PRN (21:22)
--- NOTE | 2018-09-19 21:38 | CONS ---
Date/Time of Note Date/Time of Note DATE: 09/19/18 TIME: 21:35 Assessment/Plan Assessment/Plan Assessment/Plan 1. CKD V with worsening renal failure with Fluid overload and pulmonary congestion 2. Severe anemia with Hb 6.7 due to worsening CKD 3. metabolic acidosis 4. Anemia of CKD V s/p 2 units PRBC 5. H/o HTN 6. H/o CHF, acute on chronic diastolic vs systolic 7. H/o Schizophrenia 8. H/o Depression 9. H/o CVA with residual weakness Plan: ,BUN/Cr 55/6.19, eGFR 8 - change lasix to 20mg iV daily Bicitra 30ml PO TID Epogen 6000 units on TTS for anemia Pt has worsening CKD to ESRD now, eGFR 8- discussed with pt about , she wants to wait before doing HD , but she is agreeable to do AVF pt is ok to have AVF will follow up Result Diagram: 09/19/18 0719 09/19/18 0719 Results 24hrs Laboratory Tests Test 09/19/18 07:19 White Blood Count 8.3 Red Blood Count 2.65 L Hemoglobin 7.9 L Hematocrit 24.2 L Mean Corpuscular Volume 91.3 Mean Corpuscular Hemoglobin 29.8 Mean Corpuscular Hemoglobin Concent 32.6 Red Cell Distribution Width 14.5 Platelet Count 231 Mean Platelet Volume 11.3 H Immature Granulocytes % 0.400 Neutrophils % 61.5 Lymphocytes % 21.0 Monocytes % 8.2 Eosinophils % 8.4 H Basophils % 0.5 Nucleated Red Blood Cells % 0.0 Immature Granulocytes # 0.030 Neutrophils # 5.1 Lymphocytes # 1.7 Monocytes # 0.7 Eosinophils # 0.7 H Basophils # 0.0 Nucleated Red Blood Cells # 0.0 Sodium Level 136 Potassium Level 4.5 Chloride Level 102 Carbon Dioxide Level 26 Anion Gap 8 Blood Urea Nitrogen 55 H Creatinine 6.19 H Est Glomerular Filtrat Rate mL/min 8 L Glucose Level 89 Calcium Level 8.1 L Consultation Date/Type/Reason Admit Date/Time Sep 15, 2018 at 10:45 Initial Consult Date 09/15/18 Type of Consult NEPHROLOGY Requesting Provider: ARIANA BLANK MD Exam/Review of Systems Vital Signs Vitals Vital Signs Date Temp Pulse Resp B/P (MAP) Pulse Ox O2 O2 Flow FiO2 Time Delivery Rate 09/19/18 2.0 21:09 09/19/18 80 20 91 21 20:54 09/19/18 98.0 141/70 20:39 (93) 09/19/18 Nasal 19:45 Cannula Intake and Output 09/18/18 09/18/18 09/19/18 1515:00 23:00 07:00 IntakeIntake Total 550 ml BalanceBalance 550 ml Exam Constitutional: alert, awake, on acute distress Respiratory: crackles/rales, other (Bibasilar crackles, no wheezing ) Cardiovascular: regular rate and rhythm, nl pulses Gastrointestinal: soft, non-tender Musculoskeletal: swelling (1-+ pittng edema, no clubbing, no cyanosis ) 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, nl mental status Medications Medications Current Medications Nicotine (Nicoderm 21 Mg/ 24hr) 1 patch DAILY TRANSDERM Last administered on 09/19/18 08:55; Admin Dose 1 PATCH; Start 09/15/18 at 09:00 Amlodipine Besylate (Norvasc) 10 mg DAILY PO Last administered on 09/19/18 08:53; Admin Dose 10 MG; Start 09/16/18 at 09:00 Aspirin (Halfprin) 81 mg DAILY PO Last administered on 09/19/18 08:53; Admin Dose 81 MG; Start 09/15/18 at 12:00 Atorvastatin Calcium (Lipitor) 20 mg QHS PO Last administered on 09/19/18 21:18; Admin Dose 20 MG; Start 09/15/18 at 21:00 Bupropion HCl (Wellbutrin Xl) 150 mg DAILY PO Last administered on 09/19/18 08:52; Admin Dose 150 MG; Start 09/16/18 at 09:00 Fluphenazine HCl (Prolixin) 5 mg DAILY PO Last administered on 09/18/18 09:45; Admin Dose 5 MG; Start 09/16/18 at 09:00 Lorazepam (Ativan) 0.5 mg Q4H PRN PO ANXIETY Last administered on 09/19/18 00:00; Admin Dose 0.5 MG; Start 09/15/18 at 12:00 Sertraline HCl (Zoloft) 25 mg DAILY PO Last administered on 09/19/18 08:53; Admin Dose 25 MG; Start 09/16/18 at 09:00 Trazodone HCl (Desyrel) 50 mg QHS PO Last administered on 09/19/18 21:18; Admin Dose 50 MG; Start 09/15/18 at 21:00 IV Flush (NS 3 ml) 3 ml PER PROTOCOL IV ; Start 09/15/18 at 12:00 Ondansetron HCl (Zofran Inj) 4 mg Q6H PRN IV NAUSEA AND/OR VOMITING; Start 09/15/18 at 12:00 Albuterol (Proventil 0.083% (Neb)) 2.5 mg Q2H RESP THERAPY PRN NEB SHORTNESS OF BREATH Last administered on 09/19/18 20:56; Admin Dose 2.5 MG; Start 09/15/18 at 12:00 Ipratropium [place] (Atrovent 0.02% (Neb)) 0.5 mg Q2H RESP THERAPY PRN NEB SHORTNESS OF BREATH Last administered on 09/15/18 21:44; Admin Dose 0.5 MG; Start 09/15/18 at 12:00 Acetaminophen (Tylenol Liquid) 650 mg Q6H PRN PO PAIN LEVEL 1-3 OR FEVER Last administered on 09/19/18 21:22; Admin Dose 650 MG; Start 09/15/18 at 12:00 Lorazepam (Ativan) 1 mg Q2H PRN IV ANXIETY; Start 09/15/18 at 12:00 Docusate Sodium (Colace) 100 mg Q12H PRN PO CONSTIPATION; Start 09/15/18 at 12:00 Pantoprazole (Protonix Tab) 40 mg DAILY@06 PO Last administered on 09/19/18 06:31; Admin Dose 40 MG; Start 09/16/18 at 06:00 Citric Acid/ Sodium Citrate (Bicitra) 30 ml TID PO Last administered on 09/19/18 21:26; Admin Dose 30 ML; Start 09/15/18 at 16:00 Sevelamer Carbonate (Renvela) 1,600 mg WITH MEALS PO Last administered on 09/19/18 17:57; Admin Dose 1,600 MG; Start 09/16/18 at 07:35 Epoetin [place] (Epogen (Non Esrd/Non Oncology)) 6,000 units TuThSa@17 SC Last administered on 09/19/18 18:04; Admin Dose 6,000 UNITS; Start 09/15/18 at 20:00 Hydralazine HCl (Apresoline) 10 mg Q4 PRN IV ELEVATED BLOOD PRESSURE; Start 09/16/18 at 13:30 Isosorbide Dinitrate (Isordil) 20 mg TID PO Last administered on 09/19/18at 21:18; Admin Dose 20 MG; Start 09/16/18 at 21:00 Furosemide (Lasix) 20 mg BID DIURETICS IV Last administered on 09/19/18at 17:59; Admin Dose 20 MG; Start 09/18/18 at 06:00 Morphine Sulfate (morphine SULFATE (PF)) 2 mg Q4H PRN IV PAIN LEVEL 7-10 Last administered on 09/18/18at 11:35; Admin Dose 2 MG; Start 09/17/18 at 22:57 Hydralazine HCl (Apresoline) 100 mg Q8 PO Last administered on 09/19/18at 21:19; Admin Dose 100 MG; Start 09/18/18 at 22:00 Olanzapine (Zyprexa) 2.5 mg BID PO Last administered on 09/19/18at 21:18; Admin Dose 2.5 MG; Start 09/19/18 at 21:00 ISABELLE BROWNING MD Sep 19, 2018 21:37
[2018-09-19] MEDS: morphine 4 MG/ML VIAL IV PRN (22:32)
[2018-09-20] VITALS (12 sets, daily range): BP systolic 120–179; BP diastolic 62–98; PULSE 65–78; RESP 18–20
[2018-09-20] MEDS: FUROSEMIDE 20 MG INJ IV SCH (05:48)
[2018-09-20] MEDS: PANTOPRAZOLE (EC) 40 MG TAB PO SCH (05:48)
--- NOTE | 2018-09-20 06:27 | NUR ---
end of shift note: pt stable overnight, no acute distress, per dayshift report, procedure for left arm fistula was canceled by dr. Zavala yesterday. pt able to walk around the [place] steady, alert oriented x3/ continue to monitor pt
[2018-09-20] MEDS: SERTRALINE 50 MG TAB PO SCH (08:06)
[2018-09-20] MEDS: SEVELAMER CARBONATE 800 MG TABLET PO SCH ×3 (08:06→17:40)
[2018-09-20] MEDS: CITRIC ACID/NA CITRATE 30 ML CUP PO SCH ×3 (08:06→20:46)
[2018-09-20] MEDS: ASPIRIN (EC) 81 MG TAB PO SCH (08:07)
[2018-09-20] MEDS: ISOSORBIDE DINITRATE 20 MG TAB PO SCH ×3 (08:07→20:47)
[2018-09-20] MEDS: AMLODIPINE 10 MG TAB PO SCH (08:07)
[2018-09-20] MEDS: BUPROPION (XL) 150 MG TAB PO SCH (08:07)
[2018-09-20] MEDS: OLANZAPINE 5 MG TAB PO SCH ×2 (08:07→20:48)
[2018-09-20] MEDS: FLUPHENAZINE 5 MG TAB PO SCH (08:09)
--- NOTE | 2018-09-20 10:43 | CONS ---
Date/Time of Note Date/Time of Note DATE: 09/20/18 TIME: 10:43 Assessment/Plan Assessment/Plan Assessment/Plan 1. CKD V with worsening renal failure with Fluid overload and pulmonary congestion 2. Severe anemia with Hb 6.7 due to worsening CKD 3. metabolic acidosis 4. Anemia of CKD V s/p 2 units PRBC 5. H/o HTN 6. H/o CHF, acute on chronic diastolic vs systolic 7. H/o Schizophrenia 8. H/o Depression 9. H/o CVA with residual weakness Plan: ,BUN/Cr 58/6.08 eGFR 8 - changed lasix to 20mg iV daily Bicitra 30ml PO TID Epogen 6000 units on TTS for anemia Pt has worsening CKD to ESRD now, eGFR 8- discussed with pt about , she wants to wait before doing HD , but she is agreeable to do AVF possible plan for AVF tomorrow will follow up will follow up Result Diagram: 09/20/18 0557 09/20/18 0557 Results 24hrs Laboratory Tests Test 09/20/18 05:57 White Blood Count 5.6 # Red Blood Count 2.61 L Hemoglobin 7.7 L Hematocrit 23.7 L Mean Corpuscular Volume 90.8 Mean Corpuscular Hemoglobin 29.5 Mean Corpuscular Hemoglobin Concent 32.5 Red Cell Distribution Width 14.6 H Platelet Count 206 Mean Platelet Volume 10.9 H Immature Granulocytes % 0.200 Neutrophils % 54.3 Lymphocytes % 26.0 Monocytes % 11.4 H Eosinophils % 7.7 H Basophils % 0.4 Nucleated Red Blood Cells % 0.0 Immature Granulocytes # 0.010 Neutrophils # 3.1 Lymphocytes # 1.5 Monocytes # 0.6 Eosinophils # 0.4 Basophils # 0.0 Nucleated Red Blood Cells # 0.0 Sodium Level 138 Potassium Level 4.4 Chloride Level 106 Carbon Dioxide Level 25 Anion Gap 7 Blood Urea Nitrogen 58 H Creatinine 6.08 H Est Glomerular Filtrat Rate mL/min 8 L Glucose Level 96 Calcium Level 8.1 L Consultation Date/Type/Reason Admit Date/Time Sep 15, 2018 at 10:45 Initial Consult Date 09/15/18 Type of Consult NEPHROLOGY Requesting Provider: ARIANA BLANK MD 24 HR Interval Summary Free Text/Dictation eGFR still 8, BP stable, afebrile, Possible plan for AVF on Friday Exam/Review of Systems Vital Signs Vitals Vital Signs Date Temp Pulse Resp B/P (MAP) Pulse Ox O2 O2 Flow FiO2 Time Delivery Rate 09/20/18 78 08:07 09/20/18 Nasal 2.0 07:40 Cannula 09/20/18 97.8 18 154/82 93 07:15 (106) 09/19/18 21 20:54 Intake and Output 09/19/18 09/19/18 09/20/18 1515:00 23:00 07:00 IntakeIntake Total 240 ml 800 ml BalanceBalance 240 ml 800 ml Exam Constitutional: alert, awake, on acute distress Respiratory: crackles/rales, other (Bibasilar crackles, no wheezing ) Cardiovascular: regular rate and rhythm, nl pulses Gastrointestinal: soft, non-tender Musculoskeletal: swelling (1-2+ pittng edema, no clubbing, no cyanosis ) 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, nl mental status Medications Medications Current Medications Nicotine (Nicoderm 21 Mg/ 24hr) 1 patch DAILY TRANSDERM Last administered on 09/19/18at 08:55; Admin Dose 1 PATCH; Start 09/15/18 at 09:00 Amlodipine Besylate (Norvasc) 10 mg DAILY PO Last administered on 09/20/18 08:07; Admin Dose 10 MG; Start 09/16/18 at 09:00 Aspirin (Halfprin) 81 mg DAILY PO Last administered on 09/20/18 08:07; Admin Dose 81 MG; Start 09/15/18 at 12:00 Atorvastatin Calcium (Lipitor) 20 mg QHS PO Last administered on 09/19/18at 21:18; Admin Dose 20 MG; Start 09/15/18 at 21:00 Bupropion HCl (Wellbutrin Xl) 150 mg DAILY PO Last administered on 09/20/18 08:07; Admin Dose 150 MG; Start 09/16/18 at 09:00 Fluphenazine HCl (Prolixin) 5 mg DAILY PO Last administered on 09/18/18at 09:45; Admin Dose 5 MG; Start 09/16/18 at 09:00 Lorazepam (Ativan) 0.5 mg Q4H PRN PO ANXIETY Last administered on 09/19/18at 00:00; Admin Dose 0.5 MG; Start 09/15/18 at 12:00 Sertraline HCl (Zoloft) 25 mg DAILY PO Last administered on 09/20/18 08:06; Admin Dose 25 MG; Start 09/16/18 at 09:00 Trazodone HCl (Desyrel) 50 mg QHS PO Last administered on 09/19/18 21:18; Admin Dose 50 MG; Start 09/15/18 at 21:00 IV Flush (NS 3 ml) 3 ml PER PROTOCOL IV ; Start 09/15/18 at 12:00 Ondansetron HCl (Zofran Inj) 4 mg Q6H PRN IV NAUSEA AND/OR VOMITING; Start 09/15/18 at 12:00 Albuterol (Proventil 0.083% (Neb)) 2.5 mg Q2H RESP THERAPY PRN NEB SHORTNESS OF BREATH Last administered on 09/19/18at 20:56; Admin Dose 2.5 MG; Start 09/15/18 at 12:00 Ipratropium [place] (Atrovent 0.02% (Neb)) 0.5 mg Q2H RESP THERAPY PRN NEB SHORTNESS OF BREATH Last administered on 09/15/18 21:44; Admin Dose 0.5 MG; Start 09/15/18 at 12:00 Acetaminophen (Tylenol Liquid) 650 mg Q6H PRN PO PAIN LEVEL 1-3 OR FEVER Last a dministered on 09/19/18 21:22; Admin Dose 650 MG; Start 09/15/18 at 12:00 Lorazepam (Ativan) 1 mg Q2H PRN IV ANXIETY; Start 09/15/18 at 12:00 Docusate Sodium (Colace) 100 mg Q12H PRN PO CONSTIPATION; Start 09/15/18 at 12:00 Pantoprazole (Protonix Tab) 40 mg DAILY@06 PO Last administered on 09/20/18 05:48; Admin Dose 40 MG; Start 09/16/18 at 06:00 Citric Acid/ Sodium Citrate (Bicitra) 30 ml TID PO Last administered on 09/20/18 08:06; Admin Dose 30 ML; Start 09/15/18 at 16:00 Sevelamer Carbonate (Renvela) 1,600 mg WITH MEALS PO Last administered on 09/20/18 08:06; Admin Dose 1,600 MG; Start 09/16/18 at 07:35 Epoetin [place] (Epogen (Non Esrd/Non Oncology)) 6,000 units TuThSa@17 SC Last administered on 09/19/18at 18:04; Admin Dose 6,000 UNITS; Start 09/15/18 at 20:00 Hydralazine HCl (Apresoline) 10 mg Q4 PRN IV ELEVATED BLOOD PRESSURE; Start 09/16/18 at 13:30 Isosorbide Dinitrate (Isordil) 20 mg TID PO Last administered on 09/20/18at 08:07; Admin Dose 20 MG; Start 09/16/18 at 21:00 Hydralazine HCl (Apresoline) 100 mg Q8 PO Last administered on 09/20/18at 05:48; Admin Dose 100 MG; Start 09/18/18 at 22:00 Olanzapine (Zyprexa) 2.5 mg BID PO Last administered on 09/20/18 08:07; Admin Dose 2.5 MG; Start 09/19/18 at 21:00 Furosemide (Lasix) 20 mg DAILY@0600 IV Last administered on 09/20/18at 05:48; Admin Dose 20 MG; Start 09/20/18 at 06:00 Morphine Sulfate (morphine) 2 mg Q4H PRN IV PAIN LEVEL 7-10 Last administered on 09/19/18at 22:32; Admin Dose 2 MG; Start 09/19/18 at 22:30 ISABELLE BROWNING MD Sep 20, 2018 10:43
[2018-09-20] MEDS: NICOTINE (21 MG/24 HR) PATCH TRANSDERM SCH (11:17)
--- NOTE | 2018-09-20 11:46 | CONS ---
Date/Time of Note Date/Time of Note DATE: 09/20/18 TIME: 11:43 Assessment/Plan Assessment/Plan Assessment/Plan 1. Preoperative evaluation in patient who is to undergo creation of AV fistula.-neg trop x 3. NL EF by echo. Once volume status and BP improved then patient is moderate CV risk for the procedure - blood transfusion - H/H stable, but low. 2. Congestive heart failure by chest x-ray, question systolic versus diastolic, likely acute on chronic and possibly more in the setting of volume overload in the setting of renal failure. REmove fluid with Hd. 3. Hypertension, uncontrolled - better now, although overall labile. On high side. 4. History of cerebrovascular accident with right-sided weakness. 5. History of traumatic brain injury. 6. Chronic kidney disease, to be started on hemodialysis - defer to renal team. 7. Psychiatric disorder. 8. Severe anemia, status post transfusions - H/H on low side. Result Diagram: 09/20/18 0557 09/20/18 0557 Results 24hrs Laboratory Tests Test 09/20/18 05:57 White Blood Count 5.6 # Red Blood Count 2.61 L Hemoglobin 7.7 L Hematocrit 23.7 L Mean Corpuscular Volume 90.8 Mean Corpuscular Hemoglobin 29.5 Mean Corpuscular Hemoglobin Concent 32.5 Red Cell Distribution Width 14.6 H Platelet Count 206 Mean Platelet Volume 10.9 H Immature Granulocytes % 0.200 Neutrophils % 54.3 Lymphocytes % 26.0 Monocytes % 11.4 H Eosinophils % 7.7 H Basophils % 0.4 Nucleated Red Blood Cells % 0.0 Immature Granulocytes # 0.010 Neutrophils # 3.1 Lymphocytes # 1.5 Monocytes # 0.6 Eosinophils # 0.4 Basophils # 0.0 Nucleated Red Blood Cells # 0.0 Sodium Level 138 Potassium Level 4.4 Chloride Level 106 Carbon Dioxide Level 25 Anion Gap 7 Blood Urea Nitrogen 58 H Creatinine 6.08 H Est Glomerular Filtrat Rate mL/min 8 L Glucose Level 96 Calcium Level 8.1 L Consultation Date/Type/Reason Admit Date/Time Sep 15, 2018 at 10:45 Initial Consult Date 09/15/18 Requesting Provider: ARIANA BLANK MD 24 HR Interval Summary Free Text/Dictation NO acute events - patient stable - H/H trending down - primary team follows. Still awaiting AVF - defer to vascular. ROS: No fever, no chills, no nausea, no vomiting, no diarrhea/constipation No recent weight changes No chest pain, no PND, no orthopnea No dizziness, blurred vision No thirst, no heat or cold intolerance Exam/Review of Systems Vital Signs Vitals Vital Signs Date Temp Pulse Resp B/P (MAP) Pulse Ox O2 O2 Flow FiO2 Time Delivery Rate 09/20/18 98.1 73 18 150/88 95 Nasal 11:12 (108) Cannula 09/20/18 2.0 07:40 09/19/18 21 20:54 Intake and Output 09/19/18 09/19/18 09/20/18 1515:00 23:00 07:00 IntakeIntake Total 240 ml 800 ml BalanceBalance 240 ml 800 ml Exam General: WN/WD/NAD, AOx 2-3 HEENT: Unicetric/atraumatic/EOMI (follow commands) NECK: JVD elevated, no thyromegaly Lymph: no lymphadenopathy HEART: regular with no S3, II/ systolic murmur at apex LUNGS: Coarse sounds ABD: soft, NT, ND, +BS : Intact Neuro: non focal SKIN: chronic changes EXT: trace edema Medications Medications Current Medications Nicotine (Nicoderm 21 Mg/ 24hr) 1 patch DAILY TRANSDERM Last administered on 09/20/18at 11:17; Admin Dose 1 PATCH; Start 09/15/18 at 09:00 Amlodipine Besylate (Norvasc) 10 mg DAILY PO Last administered on 09/20/18at 08:07; Admin Dose 10 MG; Start 09/16/18 at 09:00 Aspirin (Halfprin) 81 mg DAILY PO Last administered on 09/20/18at 08:07; Admin Dose 81 MG; Start 09/15/18 at 12:00 Atorvastatin Calcium (Lipitor) 20 mg QHS PO Last administered on 09/19/18 21:18; Admin Dose 20 MG; Start 09/15/18 at 21:00 Bupropion HCl (Wellbutrin Xl) 150 mg DAILY PO Last administered on 09/20/18at 08:07; Admin Dose 150 MG; Start 09/16/18 at 09:00 Fluphenazine HCl (Prolixin) 5 mg DAILY PO Last administered on 09/18/18at 09:45; Admin Dose 5 MG; Start 09/16/18 at 09:00 Lorazepam (Ativan) 0.5 mg Q4H PRN PO ANXIETY Last administered on 09/19/18at 00:00; Admin Dose 0.5 MG; Start 09/15/18 at 12:00 Sertraline HCl (Zoloft) 25 mg DAILY PO Last administered on 09/20/18 08:06; Admin Dose 25 MG; Start 09/16/18 at 09:00 Trazodone HCl (Desyrel) 50 mg QHS PO Last administered on 09/19/18 21:18; Admin Dose 50 MG; Start 09/15/18 at 21:00 IV Flush (NS 3 ml) 3 ml PER PROTOCOL IV ; Start 09/15/18 at 12:00 Ondansetron HCl (Zofran Inj) 4 mg Q6H PRN IV NAUSEA AND/OR VOMITING; Start 09/15/18 at 12:00 Albuterol (Proventil 0.083% (Neb)) 2.5 mg Q2H RESP THERAPY PRN NEB SHORTNESS OF BREATH Last administered on 09/19/18at 20:56; Admin Dose 2.5 MG; Start 09/15/18 at 12:00 Ipratropium [place] (Atrovent 0.02% (Neb)) 0.5 mg Q2H RESP THERAPY PRN NEB SHORTNESS OF BREATH Last administered on 09/15/18at 21:44; Admin Dose 0.5 MG; Start 09/15/18 at 12:00 Acetaminophen (Tylenol Liquid) 650 mg Q6H PRN PO PAIN LEVEL 1-3 OR FEVER Last administered on 09/19/18 21:22; Admin Dose 650 MG; Start 09/15/18 at 12:00 Lorazepam (Ativan) 1 mg Q2H PRN IV ANXIETY; Start 09/15/18 at 12:00 Docusate Sodium (Colace) 100 mg Q12H PRN PO CONSTIPATION; Start 09/15/18 at 12:00 Pantoprazole (Protonix Tab) 40 mg DAILY@06 PO Last administered on 09/20/18at 05:48; Admin Dose 40 MG; Start 09/16/18 at 06:00 Citric Acid/ Sodium Citrate (Bicitra) 30 ml TID PO Last administered on 09/20/18 08:06; Admin Dose 30 ML; Start 09/15/18 at 16:00 Sevelamer Carbonate (Renvela) 1,600 mg WITH MEALS PO Last administered on 09/20/18 11:17; Admin Dose 1,600 MG; Start 09/16/18 at 07:35 Epoetin Jimmy (Epogen (Non Esrd/Non Oncology)) 6,000 units TuThSa@17 SC Last administered on 09/19/18 18:04; Admin Dose 6,000 UNITS; Start 09/15/18 at 20:00 Hydralazine HCl (Apresoline) 10 mg Q4 PRN IV ELEVATED BLOOD PRESSURE; Start 09/16/18 at 13:30 Isosorbide Dinitrate (Isordil) 20 mg TID PO Last administered on 09/20/18 08:07; Admin Dose 20 MG; Start 09/16/18 at 21:00 Hydralazine HCl (Apresoline) 100 mg Q8 PO Last administered on 09/20/18 05:48; Admin Dose 100 MG; Start 09/18/18 at 22:00 Olanzapine (Zyprexa) 2.5 mg BID PO Last administered on 09/20/18 08:07; Admin Dose 2.5 MG; Start 09/19/18 at 21:00 Furosemide (Lasix) 20 mg DAILY@0600 IV Last administered on 09/20/18 05:48; Admin Dose 20 MG; Start 09/20/18 at 06:00 Morphine Sulfate (morphine) 2 mg Q4H PRN IV PAIN LEVEL 7-10 Last administered on 09/19/18at 22:32; Admin Dose 2 MG; Start 09/19/18 at 22:30 MAYELIN OLIVAS MD Sep 20, 2018 11:46
--- NOTE | 2018-09-20 12:21 | PN ---
Date/Time of Note Date/Time of Note DATE: 09/20/18 TIME: 12:21 Assessment/Plan VTE Prophylaxis Risk score (from Ns)>0 risk: 6 SCD applied (from Nsg): No Lines/Catheters IV Catheter Type (from Nrs): Saline Lock Assessment/Plan Assessment/Plan -Pulmonary congestion, s/p Lasix -Acute anemia, status post blood transfusion -Chronic kidney disease stage IV 5 with progression to end-stage renal disease. Patient need to be initiated on hemodialysis. Dr. Panda is following in nephrology consultation. -Congestive heart failure, will obtain 2D echo. Dr. Shields is following in cardiology consultation -Hypertension, continue hydralazine -Schizophrenia, continue patient's antipsychotic medications Further recommendations based on clinical course. Plan of care discussed with Dr. Carrero. Result Diagram: 09/20/18 0557 09/20/18 0557 Results 24hrs Laboratory Tests Test 09/20/18 05:57 White Blood Count 5.6 # Red Blood Count 2.61 L Hemoglobin 7.7 L Hematocrit 23.7 L Mean Corpuscular Volume 90.8 Mean Corpuscular Hemoglobin 29.5 Mean Corpuscular Hemoglobin Concent 32.5 Red Cell Distribution Width 14.6 H Platelet Count 206 Mean Platelet Volume 10.9 H Immature Granulocytes % 0.200 Neutrophils % 54.3 Lymphocytes % 26.0 Monocytes % 11.4 H Eosinophils % 7.7 H Basophils % 0.4 Nucleated Red Blood Cells % 0.0 Immature Granulocytes # 0.010 Neutrophils # 3.1 Lymphocytes # 1.5 Monocytes # 0.6 Eosinophils # 0.4 Basophils # 0.0 Nucleated Red Blood Cells # 0.0 Sodium Level 138 Potassium Level 4.4 Chloride Level 106 Carbon Dioxide Level 25 Anion Gap 7 Blood Urea Nitrogen 58 H Creatinine 6.08 H Est Glomerular Filtrat Rate mL/min 8 L Glucose Level 96 Calcium Level 8.1 L Exam/Review of Systems Vital Signs Vitals Vital Signs Date Temp Pulse Resp B/P (MAP) Pulse Ox O2 O2 Flow FiO2 Time Delivery Rate 09/20/18 72 12:13 09/20/18 98.1 18 150/88 95 Nasal 11:12 (108) Cannula 09/20/18 2.0 07:40 09/19/18 21 20:54 Intake and Output 09/19/18 09/19/18 09/20/18 1515:00 23:00 07:00 IntakeIntake Total 240 ml 800 ml BalanceBalance 240 ml 800 ml Medications Medications Current Medications Nicotine (Nicoderm 21 Mg/ 24hr) 1 patch DAILY TRANSDERM Last administered on 09/20/18 11:17; Admin Dose 1 PATCH; Start 09/15/18 at 09:00 Amlodipine Besylate (Norvasc) 10 mg DAILY PO Last administered on 09/20/18 08:07; Admin Dose 10 MG; Start 09/16/18 at 09:00 Aspirin (Halfprin) 81 mg DAILY PO Last administered on 09/20/18 08:07; Admin Dose 81 MG; Start 09/15/18 at 12:00 Atorvastatin Calcium (Lipitor) 20 mg QHS PO Last administered on 09/19/18 21:18; Admin Dose 20 MG; Start 09/15/18 at 21:00 Bupropion HCl (Wellbutrin Xl) 150 mg DAILY PO Last administered on 09/20/18 08:07; Admin Dose 150 MG; Start 09/16/18 at 09:00 Fluphenazine HCl (Prolixin) 5 mg DAILY PO Last administered on 09/18/18 09:45; Admin Dose 5 MG; Start 09/16/18 at 09:00 Lorazepam (Ativan) 0.5 mg Q4H PRN PO ANXIETY Last administered on 09/19/18 00:00; Admin Dose 0.5 MG; Start 09/15/18 at 12:00 Sertraline HCl (Zoloft) 25 mg DAILY PO Last administered on 09/20/18 08:06; Admin Dose 25 MG; Start 09/16/18 at 09:00 Trazodone HCl (Desyrel) 50 mg QHS PO Last administered on 09/19/18 21:18; Admin Dose 50 MG; Start 09/15/18 at 21:00 IV Flush (NS 3 ml) 3 ml PER PROTOCOL IV ; Start 09/15/18 at 12:00 Ondansetron HCl (Zofran Inj) 4 mg Q6H PRN IV NAUSEA AND/OR VOMITING; Start 09/15/18 at 12:00 Albuterol (Proventil 0.083% (Neb)) 2.5 mg Q2H RESP THERAPY PRN NEB SHORTNESS OF BREATH Last administered on 09/19/18 20:56; Admin Dose 2.5 MG; Start 09/15/18 at 12:00 Ipratropium [place] (Atrovent 0.02% (Neb)) 0.5 mg Q2H RESP THERAPY PRN NEB SHORTNESS OF BREATH Last administered on 09/15/18 21:44; Admin Dose 0.5 MG; Start 09/15/18 at 12:00 Acetaminophen (Tylenol Liquid) 650 mg Q6H PRN PO PAIN LEVEL 1-3 OR FEVER Last administered on 09/19/18 21:22; Admin Dose 650 MG; Start 09/15/18 at 12:00 Lorazepam (Ativan) 1 mg Q2H PRN IV ANXIETY; Start 09/15/18 at 12:00 Docusate Sodium (Colace) 100 mg Q12H PRN PO CONSTIPATION; Start 09/15/18 at 12:00 Pantoprazole (Protonix Tab) 40 mg DAILY@06 PO Last administered on 09/20/18 05:48; Admin Dose 40 MG; Start 09/16/18 at 06:00 Citric Acid/ Sodium Citrate (Bicitra) 30 ml TID PO Last administered on 09/20/18 08:06; Admin Dose 30 ML; Start 09/15/18 at 16:00 Sevelamer Carbonate (Renvela) 1,600 mg WITH MEALS PO Last administered on 09/20/18 11:17; Admin Dose 1,600 MG; Start 09/16/18 at 07:35 Hydralazine HCl (Apresoline) 10 mg Q4 PRN IV ELEVATED BLOOD PRESSURE; Start 09/16/18 at 13:30 Isosorbide Dinitrate (Isordil) 20 mg TID PO Last administered on 09/20/18 08:07; Admin Dose 20 MG; Start 09/16/18 at 21:00 Hydralazine HCl (Apresoline) 100 mg Q8 PO Last administered on 09/20/18 05:48; Admin Dose 100 MG; Start 09/18/18 at 22:00 Olanzapine (Zyprexa) 2.5 mg BID PO Last administered on 09/20/18 08:07; Admin Dose 2.5 MG; Start 09/19/18 at 21:00 Furosemide (Lasix) 20 mg DAILY@0600 IV Last administered on 1/20/19at 05:48; Admin Dose 20 MG; Start 09/20/18 at 06:00 Morphine Sulfate (morphine) 2 mg Q4H PRN IV PAIN LEVEL 7-10 Last administered on 09/19/18at 22:32; Admin Dose 2 MG; Start 09/19/18 at 22:30 Epoetin Jimmy (Epogen (Esrd)) 10,000 units TuThSa@1700 SC ; Start 09/22/18 at 17:00 JUSTYNA CRAWFORD Sep 20, 2018 12:21
--- NOTE | 2018-09-20 18:03 | NUR ---
EOSS; PT ON ESRD, PENDING TO HAVE AV FISTULA CREATION FOR HD. PT NEEDY, ASKED TO BE AMBULATED DURING SHIFT.MED SURG STATUS NOW, PENDING TRANSFER. ALL NEEDS MET. CONTINUE POC.
[2018-09-20] MEDS: traZODone 50 MG TAB PO SCH (20:46)
[2018-09-20] MEDS: ATORVASTATIN 20 MG TAB PO SCH (20:47)
[2018-09-20] MEDS: LORAZEPAM 2 MG INJ IV PRN ×2 (21:40→23:58)
[2018-09-21] VITALS (10 sets, daily range): BP systolic 139–161; BP diastolic 67–82; PULSE 70–96; RESP 20
[2018-09-21] MEDS: LEVETIRACETAM 500 MG (PMX) 100 ML IVPB SCH ×4 (00:20→21:18)
[2018-09-21] MEDS: FUROSEMIDE 20 MG INJ IV SCH (05:27)
[2018-09-21] MEDS: PANTOPRAZOLE (EC) 40 MG TAB PO SCH (05:27)
--- NOTE | 2018-09-21 06:36 | NUR ---
Pt AOX3, a M/S pt to be transfer yesterday to MED/SURG floor, V/S stable ambulatory. MIS SPECIALIST-Fannie noticed that pt is having seizure, Ativan 1 mg IVP given , notified Attending MD give new order & carried out, pt VS stable no c/o chestpain , or SOB, will give endorse to oncoming shift
[2018-09-21] MEDS: CITRIC ACID/NA CITRATE 30 ML CUP PO SCH ×3 (08:39→21:18)
[2018-09-21] MEDS: NICOTINE (21 MG/24 HR) PATCH TRANSDERM SCH (08:40)
[2018-09-21] MEDS: SEVELAMER CARBONATE 800 MG TABLET PO SCH ×2 (08:40→11:50)
[2018-09-21] MEDS: BUPROPION (XL) 150 MG TAB PO SCH (08:41)
[2018-09-21] MEDS: OLANZAPINE 5 MG TAB PO SCH ×2 (08:41→21:17)
[2018-09-21] MEDS: SERTRALINE 50 MG TAB PO SCH (08:43)
[2018-09-21] MEDS: AMLODIPINE 10 MG TAB PO SCH (08:44)
[2018-09-21] MEDS: ISOSORBIDE DINITRATE 20 MG TAB PO SCH ×3 (08:45→21:18)
[2018-09-21] MEDS: ASPIRIN (EC) 81 MG TAB PO SCH (08:45)
[2018-09-21] MEDS: FLUPHENAZINE 5 MG TAB PO SCH (08:46)
--- NOTE | 2018-09-21 09:06 | CONS ---
Date/Time of Note Date/Time of Note DATE: 09/21/18 TIME: 09:04 Assessment/Plan Assessment/Plan Assessment/Plan 1. Preoperative evaluation in patient who is to undergo creation of AV fistula.-neg trop x 3. NL EF by echo. Once volume status and BP improved then patient is moderate CV risk for the procedure - blood transfusion - H/H stable, but low. Stable. 2. Congestive heart failure by chest x-ray, question systolic versus diastolic, likely acute on chronic and possibly more in the setting of volume overload in the setting of renal failure. Remove fluid with Hd. BETTER overall. 3. Hypertension, uncontrolled - better now, although overall labile. On high side. Add rx as needed. 4. History of cerebrovascular accident with right-sided weakness. 5. History of traumatic brain injury - unchaged now. 6. Chronic kidney disease, to be started on hemodialysis - defer to renal team. 7. Psychiatric disorder - on multiple psych meds. 8. Severe anemia, status post transfusions - H/H on low side, no active bleed. Result Diagram: 09/21/1813 09/21/18 0613 Results 24hrs Laboratory Tests Test 09/20/18 21:31 09/21/18 06:13 Bedside Glucose 136 White Blood Count 8.0 # Red Blood Count 2.72 L Hemoglobin 8.1 L Hematocrit 25.0 L Mean Corpuscular Volume 91.9 Mean Corpuscular Hemoglobin 29.8 Mean Corpuscular Hemoglobin Concent 32.4 Red Cell Distribution Width 14.7 H Platelet Count 220 Mean Platelet Volume 10.5 H Immature Granulocytes % 0.500 H Neutrophils % 63.2 Lymphocytes % 18.4 Monocytes % 8.1 Eosinophils % 9.3 H Basophils % 0.5 Nucleated Red Blood Cells % 0.0 Immature Granulocytes # 0.040 H Neutrophils # 5.0 Lymphocytes # 1.5 Monocytes # 0.7 Eosinophils # 0.7 H Basophils # 0.0 Nucleated Red Blood Cells # 0.0 Sodium Level 136 Potassium Level 4.4 Chloride Level 101 Carbon Dioxide Level 26 Anion Gap 9 Blood Urea Nitrogen 59 H Creatinine 6.66 H Est Glomerular Filtrat Rate mL/min 7 L Glucose Level 85 Calcium Level 8.3 L Consultation Date/Type/Reason Admit Date/Time Sep 15, 2018 at 10:45 Initial Consult Date 09/15/18 Requesting Provider: ARIANA BLANK MD 24 HR Interval Summary Free Text/Dictation NO acute events - HD likely to follow. ROS: No fever, no chills, no nausea, no vomiting, no diarrhea/constipation No recent weight changes No chest pain, no PND, no orthopnea - mild SOB, psych No dizziness, blurred vision No thirst, no heat or cold intolerance Exam/Review of Systems Vital Signs Vitals Vital Signs Date Temp Pulse Resp B/P (MAP) Pulse Ox O2 O2 Flow FiO2 Time Delivery Rate 09/21/18 77 08:21 09/21/18 98.4 20 139/74 96 07:19 (95) 09/21/18 Nasal 2.0 01:39 Cannula 09/19/18 21 20:54 Intake and Output 09/20/18 09/20/18 09/21/18 1515:00 23:00 07:00 IntakeIntake Total 600 ml BalanceBalance 600 ml Exam General: WN/WD/NAD, AOx 1-2 on psych Rx HEENT: Unicetric/atraumatic/EOMI (follows commands) NECK: JVD elevated, no thyromegaly Lymph: no lymphadenopathy HEART: regular with no S3, II/ systolic murmur at apex LUNGS: Coarse sounds ABD: soft, NT, ND, +BS : Intact Neuro: non focal SKIN: chronic changes EXT: trace edema Medications Medications Current Medications Nicotine (Nicoderm 21 Mg/ 24hr) 1 patch DAILY TRANSDERM Last administered on 09/21/18at 08:40; Admin Dose 1 PATCH; Start 09/15/18 at 09:00 Amlodipine Besylate (Norvasc) 10 mg DAILY PO Last administered on 09/21/18at 08:44; Admin Dose 10 MG; Start 09/16/18 at 09:00 Aspirin (Halfprin) 81 mg DAILY PO Last administered on 09/21/18at 08:45; Admin D ose 81 MG; Start 09/15/18 at 12:00 Atorvastatin Calcium (Lipitor) 20 mg QHS PO Last administered on 09/20/18at 20:47; Admin Dose 20 MG; Start 09/15/18 at 21:00 Bupropion HCl (Wellbutrin Xl) 150 mg DAILY PO Last administered on 09/21/18at 08:41; Admin Dose 150 MG; Start 09/16/18 at 09:00 Fluphenazine HCl (Prolixin) 5 mg DAILY PO Last administered on 09/21/18 08:46; Admin Dose 5 MG; Start 09/16/18 at 09:00 Lorazepam (Ativan) 0.5 mg Q4H PRN PO ANXIETY Last administered on 09/19/18 00:00; Admin Dose 0.5 MG; Start 09/15/18 at 12:00 Sertraline HCl (Zoloft) 25 mg DAILY PO Last administered on 09/21/18 08:43; Admin Dose 25 MG; Start 09/16/18 at 09:00 Trazodone HCl (Desyrel) 50 mg QHS PO Last administered on 09/20/18 20:46; Admin Dose 50 MG; Start 09/15/18 at 21:00 IV Flush (NS 3 ml) 3 ml PER PROTOCOL IV ; Start 09/15/18 at 12:00 Ondansetron HCl (Zofran Inj) 4 mg Q6H PRN IV NAUSEA AND/OR VOMITING; Start 09/15/18 at 12:00 Albuterol (Proventil 0.083% (Neb)) 2.5 mg Q2H RESP THERAPY PRN NEB SHORTNESS OF BREATH Last administered on 09/19/18 20:56; Admin Dose 2.5 MG; Start 09/15/18 at 12:00 Ipratropium [place] (Atrovent 0.02% (Neb)) 0.5 mg Q2H RESP THERAPY PRN NEB SHORTNESS OF BREATH Last administered on 09/15/18 21:44; Admin Dose 0.5 MG; Start 09/15/18 at 12:00 Acetaminophen (Tylenol Liquid) 650 mg Q6H PRN PO PAIN LEVEL 1-3 OR FEVER Last administered on 09/19/18 21:22; Admin Dose 650 MG; Start 09/15/18 at 12:00 Lorazepam (Ativan) 1 mg Q2H PRN IV ANXIETY Last administered on 09/20/18 23:58; Admin Dose 1 MG; Start 09/15/18 at 12:00 Docusate Sodium (Colace) 100 mg Q12H PRN PO CONSTIPATION; Start 09/15/18 at 12:00 Pantoprazole (Protonix Tab) 40 mg DAILY@06 PO Last administered on 09/21/18 05:27; Admin Dose 40 MG; Start 09/16/18 at 06:00 Citric Acid/ Sodium Citrate (Bicitra) 30 ml TID PO Last administered on 09/21/18 08:39; Admin Dose 30 ML; Start 09/15/18 at 16:00 Sevelamer Carbonate (Renvela) 1,600 mg WITH MEALS PO Last administered on 09/21/18 08:40; Admin Dose 1,600 MG; Start 09/16/18 at 07:35 Hydralazine HCl (Apresoline) 10 mg Q4 PRN IV ELEVATED BLOOD PRESSURE; Start 09/16/18 at 13:30 Isosorbide Dinitrate (Isordil) 20 mg TID PO Last administered on 09/21/18 08:45; Admin Dose 20 MG; Start 09/16/18 at 21:00 Hydralazine HCl (Apresoline) 100 mg Q8 PO Last administered on 09/21/18 05:28; Admin Dose 100 MG; Start 09/18/18 at 22:00 Olanzapine (Zyprexa) 2.5 mg BID PO Last administered on 09/21/18 08:41; Admin Dose 2.5 MG; Start 09/19/18 at 21:00 Furosemide (Lasix) 20 mg DAILY@0600 IV Last administered on 09/21/18 05:27; Admin Dose 20 MG; Start 09/20/18 at 06:00 Morphine Sulfate (morphine) 2 mg Q4H PRN IV PAIN LEVEL 7-10 Last administered o n 09/19/18 22:32; Admin Dose 2 MG; Start 09/19/18 at 22:30 Epoetin Jimmy (Epogen (Esrd)) 10,000 units TuThSa@1700 SC ; Start 09/22/18 at 17:00 Levetiracetam 100 ml @ 400 mls/hr Q12 IVPB Last administered on 09/21/18 08:46; Admin Dose 400 MLS/HR; Start 09/20/18 at 23:00 MAYELIN OLIVAS MD Sep 21, 2018 09:06
--- NOTE | 2018-09-21 11:56 | CONS ---
Date/Time of Note Date/Time of Note DATE: 09/21/18 TIME: 11:55 Assessment/Plan Assessment/Plan Assessment/Plan 1. CKD V with worsening renal failure with Fluid overload and pulmonary congestion 2. Severe anemia with Hb 6.7 due to worsening CKD 3. metabolic acidosis 4. Anemia of CKD V s/p 2 units PRBC 5. H/o HTN 6. H/o CHF, acute on chronic diastolic vs systolic 7. H/o Schizophrenia 8. H/o Depression 9. H/o CVA with residual weakness Plan: ,BUN/Cr 59/6.6 eGFR 7 - lasix to 20mg iV daily Bicitra 30ml PO TID Epogen 6000 units on TTS for anemia Pt has worsening CKD to ESRD now, eGFR 8- discussed with pt about , she wants to wait before doing HD , but she is agreeable to do AVF possible plan for AVF today will follow up Result Diagram: 09/21/18 0613 09/21/18 0613 Results 24hrs Laboratory Tests Test 09/20/18 21:31 09/21/18 06:13 Bedside Glucose 136 White Blood Count 8.0 # Red Blood Count 2.72 L Hemoglobin 8.1 L Hematocrit 25.0 L Mean Corpuscular Volume 91.9 Mean Corpuscular Hemoglobin 29.8 Mean Corpuscular Hemoglobin Concent 32.4 Red Cell Distribution Width 14.7 H Platelet Count 220 Mean Platelet Volume 10.5 H Immature Granulocytes % 0.500 H Neutrophils % 63.2 Lymphocytes % 18.4 Monocytes % 8.1 Eosinophils % 9.3 H Basophils % 0.5 Nucleated Red Blood Cells % 0.0 Immature Granulocytes # 0.040 H Neutrophils # 5.0 Lymphocytes # 1.5 Monocytes # 0.7 Eosinophils # 0.7 H Basophils # 0.0 Nucleated Red Blood Cells # 0.0 Sodium Level 136 Potassium Level 4.4 Chloride Level 101 Carbon Dioxide Level 26 Anion Gap 9 Blood Urea Nitrogen 59 H Creatinine 6.66 H Est Glomerular Filtrat Rate mL/min 7 L Glucose Level 85 Calcium Level 8.3 L Consultation Date/Type/Reason Admit Date/Time Sep 15, 2018 at 10:45 Initial Consult Date 09/15/18 Type of Consult NEPHROLOGY Requesting Provider: ARIANA BLANK MD 24 HR Interval Summary Free Text/Dictation eGFR 7, Hb 8.1, plan for AVF today Exam/Review of Systems Vital Signs Vitals Vital Signs Date Temp Pulse Resp B/P (MAP) Pulse Ox O2 O2 Flow FiO2 Time Delivery Rate 09/21/18 98.0 75 20 140/67 93 11:16 (91) 09/21/18 Nasal 2.0 08:00 Cannula 09/19/18 21 20:54 Intake and Output 09/20/18 09/20/18 09/21/18 1515:00 23:00 07:00 IntakeIntake Total 600 ml BalanceBalance 600 ml Exam Constitutional: alert, awake, on acute distress Respiratory: crackles/rales, other (Bibasilar crackles, no wheezing ) Cardiovascular: regular rate and rhythm, nl pulses Gastrointestinal: soft, non-tender Musculoskeletal: swelling (1-2+ pittng edema, no clubbing, no cyanosis ) Neurological: 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, nl mental status Medications Medications Current Medications Nicotine (Nicoderm 21 Mg/ 24hr) 1 patch DAILY TRANSDERM Last administered on 09/21/18 08:40; Admin Dose 1 PATCH; Start 09/15/18 at 09:00 Amlodipine Besylate (Norvasc) 10 mg DAILY PO Last administered on 09/21/18 08:44; Admin Dose 10 MG; Start 09/16/18 at 09:00 Aspirin (Halfprin) 81 mg DAILY PO Last administered on 09/21/18 08:45; Admin Dose 81 MG; Start 09/15/18 at 12:00 Atorvastatin Calcium (Lipitor) 20 mg QHS PO Last administered on 09/20/18 20:47; Admin Dose 20 MG; Start 09/15/18 at 21:00 Bupropion HCl (Wellbutrin Xl) 150 mg DAILY PO Last administered on 09/21/18 08:41; Admin Dose 150 MG; Start 09/16/18 at 09:00 Fluphenazine HCl (Prolixin) 5 mg DAILY PO Last administered on 09/21/18 08:46; Admin Dose 5 MG; Start 09/16/18 at 09:00 Lorazepam (Ativan) 0.5 mg Q4H PRN PO ANXIETY Last administered on 09/19/18at 00:00; Admin Dose 0.5 MG; Start 09/15/18 at 12:00 Sertraline HCl (Zoloft) 25 mg DAILY PO Last administered on 09/21/18 08:43; Admin Dose 25 MG; Start 09/16/18 at 09:00 Trazodone HCl (Desyrel) 50 mg QHS PO Last administered on 09/20/18 20:46; Admin Dose 50 MG; Start 09/15/18 at 21:00 IV Flush (NS 3 ml) 3 ml PER PROTOCOL IV ; Start 09/15/18 at 12:00 Ondansetron HCl (Zofran Inj) 4 mg Q6H PRN IV NAUSEA AND/OR VOMITING; Start 09/15/18 at 12:00 Albuterol (Proventil 0.083% (Neb)) 2.5 mg Q2H RESP THERAPY PRN NEB SHORTNESS OF BREATH Last administered on 09/19/18 20:56; Admin Dose 2.5 MG; Start 09/15/18 at 12:00 Ipratropium [place] (Atrovent 0.02% (Neb)) 0.5 mg Q2H RESP THERAPY PRN NEB SUSY RTNESS OF BREATH Last administered on 09/15/18 21:44; Admin Dose 0.5 MG; Start 09/15/18 at 12:00 Acetaminophen (Tylenol Liquid) 650 mg Q6H PRN PO PAIN LEVEL 1-3 OR FEVER Last administered on 09/19/18 21:22; Admin Dose 650 MG; Start 09/15/18 at 12:00 Lorazepam (Ativan) 1 mg Q2H PRN IV ANXIETY Last administered on 09/20/18 23:58; Admin Dose 1 MG; Start 09/15/18 at 12:00 Docusate Sodium (Colace) 100 mg Q12H PRN PO CONSTIPATION; Start 09/15/18 at 12:00 Pantoprazole (Protonix Tab) 40 mg DAILY@06 PO Last administered on 09/21/18 05:27; Admin Dose 40 MG; Start 09/16/18 at 06:00 Citric Acid/ Sodium Citrate (Bicitra) 30 ml TID PO Last administered on 09/21/18 08:39; Admin Dose 30 ML; Start 09/15/18 at 16:00 Sevelamer Carbonate (Renvela) 1,600 mg WITH MEALS PO Last administered on 09/21/18 08:40; Admin Dose 1,600 MG; Start 09/16/18 at 07:35 Hydralazine HCl (Apresoline) 10 mg Q4 PRN IV ELEVATED BLOOD PRESSURE; Start 09/16/18 at 13:30 Isosorbide Dinitrate (Isordil) 20 mg TID PO Last administered on 09/21/18at 08:45; Admin Dose 20 MG; Start 09/16/18 at 21:00 Hydralazine HCl (Apresoline) 100 mg Q8 PO Last administered on 09/21/18 05:28; Admin Dose 100 MG; Start 09/18/18 at 22:00 Olanzapine (Zyprexa) 2.5 mg BID PO Last administered on 09/21/18 08:41; Admin Dose 2.5 MG; Start 09/19/18 at 21:00 Furosemide (Lasix) 20 mg DAILY@0600 IV Last administered on 09/21/18 05:27; Admin Dose 20 MG; Start 09/20/18 at 06:00 Morphine Sulfate (morphine) 2 mg Q4H PRN IV PAIN LEVEL 7-10 Last administered on 09/19/18at 22:32; Admin Dose 2 MG; Start 09/19/18 at 22:30 Epoetin Jimmy (Epogen (Esrd)) 10,000 units TuThSa@1700 SC ; Start 09/22/18 at 17:00 Levetiracetam 100 ml @ 400 mls/hr Q12 IVPB Last administered on 09/21/18at 08:46; Admin Dose 400 MLS/HR; Start 09/20/18 at 23:00 ISABELLE BROWNING MD Sep 21, 2018 11:55
--- NOTE | 2018-09-21 12:22 | NUR ---
PT INSISTED ON TAKING A WALK AROUND UNIT;I SUGGESTED SHE STAY IN BED DUE TO AMOUNT OF MEDS SHE IS ON;KATIE CULP WALKED WITH PT AROUND UNIT.
--- NOTE | 2018-09-21 14:34 | PN ---
Date/Time of Note Date/Time of Note DATE: 09/21/18 TIME: 14:30 Assessment/Plan VTE Prophylaxis Risk score (from Ns)>0 risk: 6 SCD applied (from Ns): Yes Pharmacological prophylaxis: NA/contraindicated Pharm contraindication: surgical contra Lines/Catheters [facility]ine [facility] Assessment/Plan Hospital Course Patient had a seizure last night had seizure last night, no seizure activity per now, pending EEG Dr. Prado is asked to see patient in neurology consul tation. Assessment/Plan -Pulmonary congestion, s/p Lasix -Acute anemia, status post blood transfusion -Chronic kidney disease stage IV 5 with progression to end-stage renal disease. Patient need to be initiated on hemodialysis. Dr. Panda is following in nephrology consultation. -Preserved ejection fraction per 2D echo Dr. Shields is following in cardiology consultation -Hypertension, continue hydralazine -Schizophrenia, continue patient's antipsychotic medications Further recommendations based on clinical course. Plan of care discussed with Dr. Carrero. Result Diagram: 09/21/18 0613 09/21/18 0613 Results 24hrs Laboratory Tests Test 09/20/18 21:31 09/21/18 06:13 Bedside Glucose 136 White Blood Count 8.0 # Red Blood Count 2.72 L Hemoglobin 8.1 L Hematocrit 25.0 L Mean Corpuscular Volume 91.9 Mean Corpuscular Hemoglobin 29.8 Mean Corpuscular Hemoglobin Concent 32.4 Red Cell Distribution Width 14.7 H Platelet Count 220 Mean Platelet Volume 10.5 H Immature Granulocytes % 0.500 H Neutrophils % 63.2 Lymphocytes % 18.4 Monocytes % 8.1 Eosinophils % 9.3 H Basophils % 0.5 Nucleated Red Blood Cells % 0.0 Immature Granulocytes # 0.040 H Neutrophils # 5.0 Lymphocytes # 1.5 Monocytes # 0.7 Eosinophils # 0.7 H Basophils # 0.0 Nucleated Red Blood Cells # 0.0 Sodium Level 136 Potassium Level 4.4 Chloride Level 101 Carbon Dioxide Level 26 Anion Gap 9 Blood Urea Nitrogen 59 H Creatinine 6.66 H Est Glomerular Filtrat Rate mL/min 7 L Glucose Level 85 Calcium Level 8.3 L Exam/Review of Systems Vital Signs Vitals Vital Signs Date Temp Pulse Resp B/P (MAP) Pulse Ox O2 O2 Flow FiO2 Time Delivery Rate 09/21/18 78 12:16 09/21/18 98.0 20 140/67 93 11:16 (91) 09/21/18 Nasal 2.0 08:00 Cannula 09/19/18 21 20:54 Intake and Output 09/20/18 09/20/18 09/21/18 1515:00 23:00 07:00 IntakeIntake Total 600 ml BalanceBalance 600 ml Exam Constitutional: alert, oriented Respiratory: diminished breath sounds Cardiovascular: regular rate and rhythm Gastrointestinal: soft, non-tender Musculoskeletal: nl extremities to inspection Extremities: normal pulses Neurological: nl mental status Skin: nl turgor Medications Medications Current Medications Nicotine (Nicoderm 21 Mg/ 24hr) 1 patch DAILY TRANSDERM Last administered on 09/21/18 08:40; Admin Dose 1 PATCH; Start 09/15/18 at 09:00 Amlodipine Besylate (Norvasc) 10 mg DAILY PO Last administered on 09/21/18 08:44; Admin Dose 10 MG; Start 09/16/18 at 09:00 Aspirin (Halfprin) 81 mg DAILY PO Last administered on 09/21/18 08:45; Admin Dose 81 MG; Start 09/15/18 at 12:00 Atorvastatin Calcium (Lipitor) 20 mg QHS PO Last administered on 09/20/18 20:47; Admin Dose 20 MG; Start 09/15/18 at 21:00 Bupropion HCl (Wellbutrin Xl) 150 mg DAILY PO Last administered on 09/21/18 08:41; Admin Dose 150 MG; Start 09/16/18 at 09:00 Fluphenazine HCl (Prolixin) 5 mg DAILY PO Last administered on 09/21/18 08:46; Admin Dose 5 MG; Start 09/16/18 at 09:00 Lorazepam (Ativan) 0.5 mg Q4H PRN PO ANXIETY Last administered on 09/19/18 00:00; Admin Dose 0.5 MG; Start 09/15/18 at 12:00 Sertraline HCl (Zoloft) 25 mg DAILY PO Last administered on 09/21/18 08:43; Admin Dose 25 MG; Start 09/16/18 at 09:00 Trazodone HCl (Desyrel) 50 mg QHS PO Last administered on 09/20/18 20:46; Admin Dose 50 MG; Start 09/15/18 at 21:00 IV Flush (NS 3 ml) 3 ml PER PROTOCOL IV ; Start 09/15/18 at 12:00 Ondansetron HCl (Zofran Inj) 4 mg Q6H PRN IV NAUSEA AND/OR VOMITING; Start 09/15/18 at 12:00 Albuterol (Proventil 0.083% (Neb)) 2.5 mg Q2H RESP THERAPY PRN NEB SHORTNESS OF BREATH Last administered on 09/19/18 20:56; Admin Dose 2.5 MG; Start 09/15/18 at 12:00 Ipratropium [place] (Atrovent 0.02% (Neb)) 0.5 mg Q2H RESP THERAPY PRN NEB SHORTNESS OF BREATH Last administered on 09/15/18at 21:44; Admin Dose 0.5 MG; Start 09/15/18 at 12:00 Acetaminophen (Tylenol Liquid) 650 mg Q6H PRN PO PAIN LEVEL 1-3 OR FEVER Last administered on 09/19/18 21:22; Admin Dose 650 MG; Start 09/15/18 at 12:00 Lorazepam (Ativan) 1 mg Q2H PRN IV ANXIETY Last administered on 09/20/18at 23:58; Admin Dose 1 MG; Start 09/15/18 at 12:00 Docusate Sodium (Colace) 100 mg Q12H PRN PO CONSTIPATION; Start 09/15/18 at 12:00 Pantoprazole (Protonix Tab) 40 mg DAILY@06 PO Last administered on 09/21/18at 05:27; Admin Dose 40 MG; Start 09/16/18 at 06:00 Citric Acid/ Sodium Citrate (Bicitra) 30 ml TID PO Last administered on 09/21/18at 08:39; Admin Dose 30 ML; Start 09/15/18 at 16:00 Sevelamer Carbonate (Renvela) 1,600 mg WITH MEALS PO Last administered on 09/21/18at 08:40; Admin Dose 1,600 MG; Start 09/16/18 at 07:35 Hydralazine HCl (Apresoline) 10 mg Q4 PRN IV ELEVATED BLOOD PRESSURE; Start 09/16/18 at 13:30 Isosorbide Dinitrate (Isordil) 20 mg TID PO Last administered on 09/21/18at 08:45; Admin Dose 20 MG; Start 09/16/18 at 21:00 Hydralazine HCl (Apresoline) 100 mg Q8 PO Last administered on 09/21/18at 05:28; Admin Dose 100 MG; Start 09/18/18 at 22:00 Olanzapine (Zyprexa) 2.5 mg BID PO Last administered on 09/21/18at 08:41; Admin Dose 2.5 MG; Start 09/19/18 at 21:00 Furosemide (Lasix) 20 mg DAILY@0600 IV Last administered on 09/21/18at 05:27; Admin Dose 20 MG; Start 09/20/18 at 06:00 Morphine Sulfate (morphine) 2 mg Q4H PRN IV PAIN LEVEL 7-10 Last administered on 09/19/18at 22:32; Admin Dose 2 MG; Start 09/19/18 at 22:30 Epoetin [place] (Epogen (Esrd)) 10,000 units TuThSa@1700 SC ; Start 09/22/18 at 17:00 Levetiracetam 100 ml @ 400 mls/hr Q12 IVPB Last administered on 09/21/18at 08:46; Admin Dose 400 MLS/HR; Start 09/20/18 at 23:00 SYDNEY JACKSON Sep 21, 2018 14:34
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
[2018-09-21] MEDS ORDERED: HEPARIN 1000 UNITS/ML 10 ML INJ ONE (18:20)
[2018-09-21] MEDS ORDERED: LIDOCAINE 1% (MPF) 30 ML INJ ONE (18:23)
--- NOTE | 2018-09-21 18:57 | PREAC ---
Date/Time of Note Date/Time of Note DATE: 09/21/18 TIME: 18:54 Anesthesia Eval and Record Evaluation Time Pre-Procedure Interview DATE: 09/21/18 TIME: 18:54 Age 38 Sex female NPO: 8 hrs Preoperative diagnosis chronic renal failure Planned procedure av fistula Past Medical History Past Medical History: Includes Cardio: HTN, CHF Pulm: COPD Neuro: CVA, Seizure disorder, Other (traumataic brain injury) Renal: ESRD on dialysis Heme: Anemia Psych: Depression, Other (schizophrenia) Recreational drugs: Other (hx of substance abuse) Surgery & Anesthesia Issues No known issue Meds Anticoagulation: No Beta Cintia within 24 hr: No Reason Beta Cintia not given: Pt. not on B-Cintia Reported Medications Albuterol Sulfate* (Ventolin HFA*) 18 Gm Hfa.aer.ad, 2 PUFF INHALATION Q4H, #1 INHALER 09/15/18 Bupropion Hcl* (Wellbutrin XL*) 150 Mg Tab.sr.24h, 150 MG PO DAILY, TAB.SA 09/15/18 Fluphenazine Hcl* (Prolixin*) 5 Mg Tab, 5 MG PO DAILY, TAB 09/15/18 Atorvastatin Calcium* (Atorvastatin Calcium*) 20 Mg Tablet, 20 MG PO QHS, #30 TAB 09/15/18 Isosorbide Mononitrate* (Isosorbide Mononitrate*) 20 Mg Tablet, 20 MG PO BID, TAB 09/15/18 Aspirin (Low Dose Aspirin) 81 Mg Tablet.dr, 81 MG PO DAILY, #30 TAB 09/15/18 Hydralazine Hcl* (Hydralazine Hcl*) 25 Mg Tab, 25 MG PO TID PRN for ELEVATED BLOOD PRESSURE, #90 TAB 09/15/18 Amlodipine Besylate* (Amlodipine Besylate*) 10 Mg Tablet, 10 MG PO DAILY, #30 TAB 09/15/18 Sertraline Hcl* (Zoloft*) 25 Mg Tablet, 25 MG PO DAILY, #30 TAB 09/15/18 Lorazepam* (Lorazepam*) 0.5 Mg Tablet, 0.5 MG PO Q4 PRN for ANXIETY, TAB 09/15/18 Trazodone Hcl* (Trazodone Hcl*) 50 Mg Tablet, 50 MG PO QHS, #30 TAB 09/15/18 Current Medications Nicotine (Nicoderm 21 Mg/ 24hr) 1 patch DAILY TRANSDERM Last administered on 09/21/18 08:40; Admin Dose 1 PATCH; Start 09/15/18 at 09:00 Amlodipine Besylate (Norvasc) 10 mg DAILY PO Last administered on 09/21/18 08:44; Admin Dose 10 MG; Start 09/16/18 at 09:00 Aspirin (Halfprin) 81 mg DAILY PO Last administered on 09/21/18 08:45; Admin Dose 81 MG; Start 09/15/18 at 12:00 Atorvastatin Calcium (Lipitor) 20 mg QHS PO Last administered on 09/20/18 20:47; Admin Dose 20 MG; Start 09/15/18 at 21:00 Fluphenazine HCl (Prolixin) 5 mg DAILY PO Last administered on 09/21/18 08:46; Admin Dose 5 MG; Start 09/16/18 at 09:00 Lorazepam (Ativan) 0.5 mg Q4H PRN PO ANXIETY Last administered on 09/19/18 00 :00; Admin Dose 0.5 MG; Start 09/15/18 at 12:00 Sertraline HCl (Zoloft) 25 mg DAILY PO Last administered on 09/21/18 08:43; Admin Dose 25 MG; Start 09/16/18 at 09:00 Trazodone HCl (Desyrel) 50 mg QHS PO Last administered on 09/20/18 20:46; Admin Dose 50 MG; Start 09/15/18 at 21:00 IV Flush (NS 3 ml) 3 ml PER PROTOCOL IV ; Start 09/15/18 at 12:00 Ondansetron HCl (Zofran Inj) 4 mg Q6H PRN IV NAUSEA AND/OR VOMITING; Start 09/15/18 at 12:00 Albuterol (Proventil 0.083% (Neb)) 2.5 mg Q2H RESP THERAPY PRN NEB SHORTNESS OF BREATH Last administered on 09/19/18 20:56; Admin Dose 2.5 MG; Start 09/15/18 at 12:00 Ipratropium [place] (Atrovent 0.02% (Neb)) 0.5 mg Q2H RESP THERAPY PRN NEB SHORTNESS OF BREATH Last administered on 09/15/18 21:44; Admin Dose 0.5 MG; Start 09/15/18 at 12:00 Acetaminophen (Tylenol Liquid) 650 mg Q6H PRN PO PAIN LEVEL 1-3 OR FEVER Last administered on 09/19/18 21:22; Admin Dose 650 MG; Start 09/15/18 at 12:00 Lorazepam (Ativan) 1 mg Q2H PRN IV ANXIETY Last administered on 09/20/18at 23:58; Admin Dose 1 MG; Start 09/15/18 at 12:00 Docusate Sodium (Colace) 100 mg Q12H PRN PO CONSTIPATION; Start 09/15/18 at 12:00 Pantoprazole (Protonix Tab) 40 mg DAILY@06 PO Last administered on 09/21/18 05:27; Admin Dose 40 MG; Start 09/16/18 at 06:00 Citric Acid/ Sodium Citrate (Bicitra) 30 ml TID PO Last administered on 09/21/18 15:33; Admin Dose 30 ML; Start 09/15/18 at 16:00 Sevelamer Carbonate (Renvela) 1,600 mg WITH MEALS PO Last administered on 09/21/18at 08:40; Admin Dose 1,600 MG; Start 09/16/18 at 07:35 Hydralazine HCl (Apresoline) 10 mg Q4 PRN IV ELEVATED BLOOD PRESSURE; Start 09/16/18 at 13:30 Isosorbide Dinitrate (Isordil) 20 mg TID PO Last administered on 09/21/18 15:33; Admin Dose 20 MG; Start 09/16/18 at 21:00 Hydralazine HCl (Apresoline) 100 mg Q8 PO Last administered on 09/21/18 15:33; Admin Dose 100 MG; Start 09/18/18 at 22:00 Olanzapine (Zyprexa) 2.5 mg BID PO Last administered on 09/21/18 08:41; Admin Dose 2.5 MG; Start 09/19/18 at 21:00 Furosemide (Lasix) 20 mg DAILY@0600 IV Last administered on 09/21/18 05:27; Admin Dose 20 MG; Start 09/20/18 at 06:00 Morphine Sulfate (morphine) 2 mg Q4H PRN IV PAIN LEVEL 7-10 Last administered on 09/19/18at 22:32; Admin Dose 2 MG; Start 09/19/18 at 22:30 Epoetin [place] (Epogen (Esrd)) 10,000 units TuThSa@1700 SC ; Start 09/22/18 at 17:00 Levetiracetam 100 ml @ 400 mls/hr Q12 IVPB Last administered on 09/21/18at 08:46; Admin Dose 400 MLS/HR; Start 09/20/18 at 23:00 Meds reviewed: Yes Allergies Coded Allergies: ampicillin (Verified Allergy, Unknown, 09/15/18) Allergies Reviewed: Yes Labs/Studies Labs Reviewed: Reviewed by anesthesiologist Result Diagram: 09/21/1861209/21/18612 Laboratory Tests 09/21/18 06:13 test: N/A Studies: 2D Echo Pre-procedure Exam Last vitals Vital Signs Date Temp Pulse Resp B/P (MAP) Pulse Ox O2 O2 Flow FiO2 Time Delivery Rate 09/21/18 73 16:00 09/21/18 Nasal 2.0 15:55 Cannula 09/21/18 98.4 20 161/81 95 15:34 (107) 09/19/18 21 20:54 Airway: Adequate mouth opening, Adequate thyromental dist Mallampati: Mallampati II Teeth: Normal Lung: Normal Heart: Normal ASA Physical Status ASA physical status: 3 Emergency: None Planned Anesthetic Nerve block: Brachial plexus (left) Planned Pain Management Single shot nerve block, Parenteral pain med Pre-operative Attestations Prior to commencing anesthesia and surgery, the patient was re-evaluated, there was verification of: *The patient's identity *The results of appropriate recent lab work and preoperative vital signs *The above evaluation not changing prior to induction *Anesthetic plan, risk benefits, alternative and complications discussed with patient/family; questions answered; patient/family understands, accepts and wishes to proceed. NABEEL JALLOH Sep 21, 2018 18:57
--- NOTE | 2018-09-21 20:27 | NUR ---
Called Dr.. Zavala just now to confirm cancellation of AVG creation. According to him, the anesthesiologist cancelled because the anesthesiologist has an emergency surgery. Ok to resume feeding of patient.
[2018-09-21] MEDS: ATORVASTATIN 20 MG TAB PO SCH (21:17)
[2018-09-21] MEDS: traZODone 50 MG TAB PO SCH (21:18)
--- NOTE | 2018-09-21 21:31 | NUR ---
IV on left hand occluded. Pt refused reinsertion of IV on right.
[2018-09-22] VITALS (10 sets, daily range): BP systolic 135–161; BP diastolic 65–83; PULSE 20–93; RESP 20–21
[2018-09-22] MEDS: FUROSEMIDE 20 MG INJ IV SCH (06:00)
[2018-09-22] MEDS: PANTOPRAZOLE (EC) 40 MG TAB PO SCH (06:14)
--- NOTE | 2018-09-22 06:26 | NUR ---
END OF SHIFT REPORT PATIENT REFUSED REINSERTION OF IV. KEPPRA IVPB AND LASIX IV NOT GIVEN. PATIENT EASILY GETS AGITATED AND WOULD SHOUT (WITH EXPLETIVES) AT ME. FEEDING RESUMED PER DR'S ORDER LAST NIGHT. NO DEFINITE SCHEDULE OF AVG CREATION.
[2018-09-22] MEDS: SEVELAMER CARBONATE 800 MG TABLET PO SCH ×4 (07:55→18:04)
[2018-09-22] MEDS: CITRIC ACID/NA CITRATE 30 ML CUP PO SCH ×3 (08:45→22:13)
[2018-09-22] MEDS: AMLODIPINE 10 MG TAB PO SCH (08:46)
[2018-09-22] MEDS: ISOSORBIDE DINITRATE 20 MG TAB PO SCH ×3 (08:46→22:12)
[2018-09-22] MEDS: OLANZAPINE 5 MG TAB PO SCH ×2 (08:47→22:11)
[2018-09-22] MEDS: ASPIRIN (EC) 81 MG TAB PO SCH (08:47)
[2018-09-22] MEDS: SERTRALINE 50 MG TAB PO SCH (08:47)
[2018-09-22] MEDS: FLUPHENAZINE 5 MG TAB PO SCH (09:00)
[2018-09-22] MEDS ORDERED: FUROSEMIDE 20 MG TAB PO SCH (09:00)
[2018-09-22] MEDS: LEVETIRACETAM 500 MG TAB PO SCH ×2 (10:26→22:11)
[2018-09-22] MEDS: NICOTINE (21 MG/24 HR) PATCH TRANSDERM SCH (10:29)
--- NOTE | 2018-09-22 12:15 | CONS ---
Assessment/Plan Assessment/Plan Assessment/Plan 1. CKD V with worsening renal failure with Fluid overload and pulmonary congestion 2. Severe anemia with Hb 6.7 due to worsening CKD 3. metabolic acidosis 4. Anemia of CKD V s/p 2 units PRBC 5. H/o HTN 6. H/o CHF, acute on chronic diastolic vs systolic 7. H/o Schizophrenia 8. H/o Depression 9. H/o CVA with residual weakness Plan: ,BUN/Cr 62/7.05 eGFR 6 - change lasix to 20mg pO BID Bicitra 30ml PO TID Epogen 6000 units on TTS for anemia Pt has worsening CKD to ESRD now, eGFR - discussed with pt about , she wants to wait before doing HD , but she is agreeable to do AVF will follow up Result Diagram: 09/22/18 0549 09/22/18 0549 Results 24hrs Laboratory Tests Test 09/22/18 05:49 White Blood Count 5.9 # Red Blood Count 2.64 L Hemoglobin 7.8 L Hematocrit 24.3 L Mean Corpuscular Volume 92.0 Mean Corpuscular Hemoglobin 29.5 Mean Corpuscular Hemoglobin Concent 32.1 Red Cell Distribution Width 14.6 H Platelet Count 231 Mean Platelet Volume 11.1 H Immature Granulocytes % 0.300 Neutrophils % 50.2 Lymphocytes % 27.1 Monocytes % 9.6 Eosinophils % 12.0 H Basophils % 0.8 Nucleated Red Blood Cells % 0.0 Immature Granulocytes # 0.020 Neutrophils # 3.0 Lymphocytes # 1.6 Monocytes # 0.6 Eosinophils # 0.7 H Basophils # 0.1 Nucleated Red Blood Cells # 0.0 Sodium Level 140 Potassium Level 4.4 Chloride Level 106 Carbon Dioxide Level 25 Anion Gap 9 Blood Urea Nitrogen 62 H Creatinine 7.05 H Est Glomerular Filtrat Rate mL/min 6 L Glucose Level 104 Calcium Level 8.4 Consultation Date/Type/Reason Admit Date/Time Sep 15, 2018 at 10:45 Initial Consult Date 09/15/18 Type of Consult NEPHROLOGY Requesting Provider: SYDNEY JACKSON 24 HR Interval Summary Free Text/Dictation BUN/Cr 62/7.05, BP stable, afebrile, Exam/Review of Systems Vital Signs Vitals Vital Signs Date Temp Pulse Resp B/P (MAP) Pulse Ox O2 O2 Flow FiO2 Time Delivery Rate 09/22/18 98.3 74 20 156/80 94 11:15 (105) 09/21/18 Nasal 2.0 15:55 Cannula 09/19/18 21 20:54 Intake and Output 09/21/18 09/21/18 09/22/18 1414:59 22:59 06:59 IntakeIntake Total 100 ml 300 ml 500 ml BalanceBalance 100 ml 300 ml 500 ml Exam Constitutional: alert, awake, on acute distress Respiratory: crackles/rales, other (Bibasilar crackles, no wheezing ) Cardiovascular: regular rate and rhythm, nl pulses Gastrointestinal: soft, non-tender Musculoskeletal: swelling (1-2+ pittng edema, no clubbing, no cyanosis ) Neurological: 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, nl mental status Medications Medications Current Medications Nicotine (Nicoderm 21 Mg/ 24hr) 1 patch DAILY TRANSDERM Last administered on 09/22/18 10:29; Admin Dose 1 PATCH; Start 09/15/18 at 09:00 Amlodipine Besylate (Norvasc) 10 mg DAILY PO Last administered on 09/22/18 08:46; Admin Dose 10 MG; Start 09/16/18 at 09:00 Aspirin (Halfprin) 81 mg DAILY PO Last administered on 09/22/18 08:47; Admin Dose 81 MG; Start 09/15/18 at 12:00 Atorvastatin Calcium (Lipitor) 20 mg QHS PO Last administered on 09/21/18 21:17; Admin Dose 20 MG; Start 09/15/18 at 21:00 Fluphenazine HCl (Prolixin) 5 mg DAILY PO Last administered on 09/22/18 09:00; Admin Dose 5 MG; Start 09/16/18 at 09:00 Lorazepam (Ativan) 0.5 mg Q4H PRN PO ANXIETY Last administered on 09/19/18 00:00; Admin Dose 0.5 MG; Start 09/15/18 at 12:00 Sertraline HCl (Zoloft) 25 mg DAILY PO Last administered on 09/22/18 08:47; Admin Dose 25 MG; Start 09/16/18 at 09:00 Trazodone HCl (Desyrel) 50 mg QHS PO Last administered on 09/21/18 21:18; Admin Dose 50 MG; Start 09/15/18 at 21:00 IV Flush (NS 3 ml) 3 ml PER PROTOCOL IV ; Start 09/15/18 at 12:00 Ondansetron HCl (Zofran Inj) 4 mg Q6H PRN IV NAUSEA AND/OR VOMITING; Start 09/15/18 at 12:00 Albuterol (Proventil 0.083% (Neb)) 2.5 mg Q2H RESP THERAPY PRN NEB SHORTNESS OF BREATH Last administered on 09/19/18at 20:56; Admin Dose 2.5 MG; Start 09/15/18 at 12:00 Ipratropium [place] (Atrovent 0.02% (Neb)) 0.5 mg Q2H RESP THERAPY PRN NEB SHORTNESS OF BREATH Last administered on 09/15/18at 21:44; Admin Dose 0.5 MG; Start 09/15/18 at 12:00 Acetaminophen (Tylenol Liquid) 650 mg Q6H PRN PO PAIN LEVEL 1-3 OR FEVER Last administered on 09/19/18at 21:22; Admin Dose 650 MG; Start 09/15/18 at 12:00 Lorazepam (Ativan) 1 mg Q2H PRN IV ANXIETY Last administered on 09/20/18at 23:58; Admin Dose 1 MG; Start 09/15/18 at 12:00 Docusate Sodium (Colace) 100 mg Q12H PRN PO CONSTIPATION; Start 09/15/18 at 12:00 Pantoprazole (Protonix Tab) 40 mg DAILY@06 PO Last administered on 09/22/18at 06:14; Admin Dose 40 MG; Start 09/16/18 at 06:00 Citric Acid/ Sodium Citrate (Bicitra) 30 ml TID PO Last administered on 09/22/18at 08:45; Admin Dose 30 ML; Start 09/15/18 at 16:00 Sevelamer Carbonate (Renvela) 1,600 mg WITH MEALS PO Last administered on 09/22/18at 07:55; Admin Dose 1,600 MG; Start 09/16/18 at 07:35 Hydralazine HCl (Apresoline) 10 mg Q4 PRN IV ELEVATED BLOOD PRESSURE; Start 09/16/18 at 13:30 Isosorbide Dinitrate (Isordil) 20 mg TID PO Last administered on 09/22/18at 08:46; Admin Dose 20 MG; Start 09/16/18 at 21:00 Hydralazine HCl (Apresoline) 100 mg Q8 PO Last administered on 09/22/18at 06:13; Admin Dose 100 MG; Start 09/18/18 at 22:00 Olanzapine (Zyprexa) 2.5 mg BID PO Last administered on 09/22/18at 08:47; Admin Dose 2.5 MG; Start 09/19/18 at 21:00 Morphine Sulfate (morphine) 2 mg Q4H PRN IV PAIN LEVEL 7-10 Last administered on 09/19/18at 22:32; Admin Dose 2 MG; Start 09/19/18 at 22:30 Epoetin Jimmy (Epogen (Esrd)) 10,000 units TuThSa@1700 SC ; Start 09/22/18 at 17:00 Levetiracetam (Keppra) 500 mg BID PO Last administered on 09/22/18at 10:26; Admin Dose 500 MG; Start 09/22/18 at 09:00 Furosemide (Lasix) 20 mg DAILY PO Last administered on 09/22/18at 10:28; Admin Dose 20 MG; Start 09/22/18 at 09:00 Date/Time of Note Date/Time of Note DATE: 09/22/18 TIME: 12:15 ISABELLE BROWNING MD Sep 22, 2018 12:15
--- NOTE | 2018-09-22 13:14 | CONS ---
Assessment/Plan Assessment/Plan Assessment/Plan 1. Preoperative evaluation in patient who is to undergo creation of AV fistula.-neg trop x 3. NL EF by echo. Once volume status and BP improved then patient is moderate CV risk for the procedure - blood transfusion - H/H stable, but low. Stable. TREATED. 2. Congestive heart failure by chest x-ray, question systolic versus diastolic, likely acute on chronic and possibly more in the setting of volume overload in the setting of renal failure. Remove fluid with Hd. BETTER overall. 3. Hypertension, uncontrolled - better now, although overall labile. On high side. Add rx as needed. WILL FOLLOW concurrently with renal team. 4. History of cerebrovascular accident with right-sided weakness. 5. History of traumatic brain injury - unchaged now. 6. Chronic kidney disease, to be started on hemodialysis - defer to renal team. 7. Psychiatric disorder - on multiple psych meds. 8. Severe anemia, status post transfusions - H/H on low side, no active bleed.H/H stable now. Result Diagram: 09/22/18 0549 09/22/18 0549 Results 24hrs Laboratory Tests Test 09/22/18 05:49 White Blood Count 5.9 # Red Blood Count 2.64 L Hemoglobin 7.8 L Hematocrit 24.3 L Mean Corpuscular Volume 92.0 Mean Corpuscular Hemoglobin 29.5 Mean Corpuscular Hemoglobin Concent 32.1 Red Cell Distribution Width 14.6 H Platelet Count 231 Mean Platelet Volume 11.1 H Immature Granulocytes % 0.300 Neutrophils % 50.2 Lymphocytes % 27.1 Monocytes % 9.6 Eosinophils % 12.0 H Basophils % 0.8 Nucleated Red Blood Cells % 0.0 Immature Granulocytes # 0.020 Neutrophils # 3.0 Lymphocytes # 1.6 Monocytes # 0.6 Eosinophils # 0.7 H Basophils # 0.1 Nucleated Red Blood Cells # 0.0 Sodium Level 140 Potassium Level 4.4 Chloride Level 106 Carbon Dioxide Level 25 Anion Gap 9 Blood Urea Nitrogen 62 H Creatinine 7.05 H Est Glomerular Filtrat Rate mL/min 6 L Glucose Level 104 Calcium Level 8.4 Consultation Date/Type/Reason Admit Date/Time Sep 15, 2018 at 10:45 Initial Consult Date 09/15/18 Requesting Provider: SYDNEY JACKSON 24 HR Interval Summary Free Text/Dictation NO acute events - BP labile - will follow with HD. ROS: No fever, no chills, no nausea, no vomiting, no diarrhea/constipation No recent weight changes No chest pain, no PND, no orthopnea - mild SOB No dizziness, blurred vision No thirst, no heat or cold intolerance Exam/Review of Systems Vital Signs Vitals Vital Signs Date Temp Pulse Resp B/P (MAP) Pulse Ox O2 O2 Flow FiO2 Time Delivery Rate 09/22/18 75 12:27 09/22/18 98.3 20 156/80 94 11:15 (105) 09/21/18 Nasal 2.0 15:55 Cannula 09/19/18 21 20:54 Intake and Output 09/21/18 09/21/18 09/22/18 1515:00 23:00 07:00 IntakeIntake Total 100 ml 300 ml 500 ml BalanceBalance 100 ml 300 ml 500 ml Exam General: WN/WD/NAD, AOx 2-3 psych HEENT: Unicetric/atraumatic/EOMI (follow commands) NECK: JVD elevated, no thyromegaly Lymph: no lymphadenopathy HEART: regular with no S3, II/ systolic murmur at apex LUNGS: Coarse sounds ABD: soft, NT, ND, +BS : Intact Neuro: non focal SKIN: chronic changes EXT: trace edema Medications Medications Current Medications Nicotine (Nicoderm 21 Mg/ 24hr) 1 patch DAILY TRANSDERM Last administered on 09/22/18at 10:29; Admin Dose 1 PATCH; Start 09/15/18 at 09:00 Amlodipine Besylate (Norvasc) 10 mg DAILY PO Last administered on 09/22/18 08:46; Admin Dose 10 MG; Start 09/16/18 at 09:00 Aspirin (Halfprin) 81 mg DAILY PO Last administered on 09/22/18 08:47; Admin Dose 81 MG; Start 09/15/18 at 12:00 Atorvastatin Calcium (Lipitor) 20 mg QHS PO Last administered on 09/21/18 21:17; Admin Dose 20 MG; Start 09/15/18 at 21:00 Fluphenazine HCl (Prolixin) 5 mg DAILY PO Last administered on 09/22/18 09:00; Admin Dose 5 MG; Start 09/16/18 at 09:00 Lorazepam (Ativan) 0.5 mg Q4H PRN PO ANXIETY Last administered on 09/19/18 00:00; Admin Dose 0.5 MG; Start 09/15/18 at 12:00 Sertraline HCl (Zoloft) 25 mg DAILY PO Last administered on 09/22/18 08:47; Admin Dose 25 MG; Start 09/16/18 at 09:00 Trazodone HCl (Desyrel) 50 mg QHS PO Last administered on 09/21/18at 21:18; Admin Dose 50 MG; Start 09/15/18 at 21:00 IV Flush (NS 3 ml) 3 ml PER PROTOCOL IV ; Start 09/15/18 at 12:00 Ondansetron HCl (Zofran Inj) 4 mg Q6H PRN IV NAUSEA AND/OR VOMITING; Start 09/15/18 at 12:00 Albuterol (Proventil 0.083% (Neb)) 2.5 mg Q2H RESP THERAPY PRN NEB SHORTNESS OF BREATH Last administered on 09/19/18 20:56; Admin Dose 2.5 MG; Start 09/15/18 at 12:00 Ipratropium [place] (Atrovent 0.02% (Neb)) 0.5 mg Q2H RESP THERAPY PRN NEB SHORTNESS OF BREATH Last administered on 09/15/18 21:44; Admin Dose 0.5 MG; Start 09/15/18 at 12:00 Acetaminophen (Tylenol Liquid) 650 mg Q6H PRN PO PAIN LEVEL 1-3 OR FEVER Last administered on 09/19/18 21:22; Admin Dose 650 MG; Start 09/15/18 at 12:00 Lorazepam (Ativan) 1 mg Q2H PRN IV ANXIETY Last administered on 09/20/18at 23:58; Admin Dose 1 MG; Start 09/15/18 at 12:00 Docusate Sodium (Colace) 100 mg Q12H PRN PO CONSTIPATION; Start 09/15/18 at 12:00 Pantoprazole (Protonix Tab) 40 mg DAILY@06 PO Last administered on 09/22/18at 06:14; Admin Dose 40 MG; Start 09/16/18 at 06:00 Citric Acid/ Sodium Citrate (Bicitra) 30 ml TID PO Last administered on 09/22/18 08:45; Admin Dose 30 ML; Start 09/15/18 at 16:00 Sevelamer Carbonate (Renvela) 1,600 mg WITH MEALS PO Last administered on 09/22/18 07:55; Admin Dose 1,600 MG; Start 09/16/18 at 07:35 Hydralazine HCl (Apresoline) 10 mg Q4 PRN IV ELEVATED BLOOD PRESSURE; Start at 13:30 Isosorbide Dinitrate (Isordil) 20 mg TID PO Last administered on 09/22/18 08:46; Admin Dose 20 MG; Start 09/16/18 at 21:00 Hydralazine HCl (Apresoline) 100 mg Q8 PO Last administered on 09/22/18 06:13; Admin Dose 100 MG; Start 09/18/18 at 22:00 Olanzapine (Zyprexa) 2.5 mg BID PO Last administered on 09/22/18at 08:47; Admin Dose 2.5 MG; Start 09/19/18 at 21:00 Morphine Sulfate (morphine) 2 mg Q4H PRN IV PAIN LEVEL 7-10 Last administered on 09/19/18at 22:32; Admin Dose 2 MG; Start 09/19/18 at 22:30 Epoetin [place] (Epogen (Esrd)) 10,000 units TuThSa@1700 SC ; Start 09/22/18 at 1 7:00 Levetiracetam (Keppra) 500 mg BID PO Last administered on 09/22/18at 10:26; Admin Dose 500 MG; Start 09/22/18 at 09:00 Furosemide (Lasix) 20 mg DAILY PO Last administered on 09/22/18at 10:28; Admin Dose 20 MG; Start 09/22/18 at 09:00 Date/Time of Note Date/Time of Note DATE: 09/22/18 TIME: 13:12 MAYELIN OLIVAS MD Sep 22, 2018 13:14
--- NOTE | 2018-09-22 13:17 | PN ---
Date/Time of Note Date/Time of Note DATE: 09/21/18 TIME: 19:16 late entry note Assessment/Plan [facility]ters [facility] Assessment/Plan Chief Complaint/Hosp Course -Chronic kidney disease stage IV to V: Seems that the patient's renal failure has been worsened secondary to her diabetes and hypertension. We will plan to create an access for the patient when she has been optimized from a medical standpoint. Will schedule her surgery in the coming days pending optimization -The patient does have adequate vein conduits on her left upper extremity in which we will plan to use for her fistula creation. Patient surgery was cancelled by Anesthesia. It was felt she is still not optimized. Will reschedule patient . -Appreciate nephrology evaluation and optimization -Appreciate cardiology evaluation and optimization -Discussed findings, plan and management with the patient and the family at the bedside. -Optimize vascular status (BP meds, diet, nutrition, exercise, sugar control, antiplatelets). -Thank you for allowing me to participate in the care of this patient. Please call with any questions. Subjective 24 Hr Interval Summary patient's surgery was cancelled secondary to anesthesia feeling she is not safe for surgery Exam/Review of Systems Vital Signs Vitals Vital Signs Date Temp Pulse Resp B/P (MAP) Pulse Ox O2 O2 Flow FiO2 Time Delivery Rate 09/22/18 75 12:27 09/22/18 98.3 20 156/80 94 11:15 (105) 09/21/18 Nasal 2.0 15:55 Cannula 09/19/18 21 20:54 Intake and Output 09/21/18 09/21/18 09/22/18 1515:00 23:00 07:00 IntakeIntake Total 100 ml 300 ml 500 ml BalanceBalance 100 ml 300 ml 500 ml Exam Free Text/Dictation GENERAL: Awake and answers simple questions PULMONARY: Coarse breath sounds bilaterally, some crackles at the bases. CARDIOVASCULAR: S1, S2 present. ABDOMEN: Soft, nontender, nondistended. Bowel sounds positive. Truncal obesity. EXTREMITIES: -Right lower extremities: Palpable femoral pulse, faint pedal pulse. Motor, sensory intact. Capillary refill 3 seconds, large leg. -Left lower extremity: Palpable femoral pulse, faint pedal pulse. Motor, sensory intact. Capillary refill 3 seconds. Large leg. -Bilateral upper extremities: Palpable brachial pulse. Motor, sensory intact. Capillary refill 3 seconds. -Right-sided upper and lower extremity: Motor is intact; however, has some weakness and paralysis that appears to be 4/5. Results Result Diagram: 09/22/18 0549 09/22/18 0549 ARIANA BLANK MD Sep 22, 2018 13:17
--- NOTE | 2018-09-22 13:19 | PN ---
Date/Time of Note Date/Time of Note DATE: 09/22/18 TIME: 13:19 Assessment/Plan Lines/Catheters [facility] Saline Lock Assessment/Plan Chief Complaint/Hosp Course -Chronic kidney disease stage IV to V: Seems that the patient's renal failure has been worsened secondary to her diabetes and hypertension. We will plan to create an access for the patient when she has been optimized from a medical standpoint. Will schedule her surgery in the coming days pending optimization -The patient does have adequate vein conduits on her left upper extremity in which we will plan to use for her fistula creation. Patient surgery was cancelled by Anesthesia. It was felt she is still not optimized. Will reschedule patient . -Appreciate nephrology evaluation and optimization -Appreciate cardiology evaluation and optimization -Discussed findings, plan and management with the patient and the family at the bedside. -Optimize vascular status (BP meds, diet, nutrition, exercise, sugar control, antiplatelets). -Thank you for allowing me to participate in the care of this patient. Please call with any questions. Subjective 24 Hr Interval Summary patient's surgery was cancelled secondary to anesthesia feeling she is not safe for surgery last night Exam/Review of Systems Vital Signs Vitals Vital Signs Date Temp Pulse Resp B/P (MAP) Pulse Ox O2 O2 Flow FiO2 Time Delivery Rate 09/22/18 75 12:27 09/22/18 98.3 20 156/80 94 11:15 (105) 09/21/18 Nasal 2.0 15:55 Cannula 09/19/18 21 20:54 Intake and Output 09/21/18 09/21/18 09/22/18 1515:00 23:00 07:00 IntakeIntake Total 100 ml 300 ml 500 ml BalanceBalance 100 ml 300 ml 500 ml Exam Free Text/Dictation GENERAL: Awake and answers simple questions PULMONARY: Coarse breath sounds bilaterally, some crackles at the bases. CARDIOVASCULAR: S1, S2 present. ABDOMEN: Soft, nontender, nondistended. Bowel sounds positive. Truncal o besity. EXTREMITIES: -Right lower extremities: Palpable femoral pulse, faint pedal pulse. Motor, sensory intact. Capillary refill 3 seconds, large leg. -Left lower extremity: Palpable femoral pulse, faint pedal pulse. Motor, sensory intact. Capillary refill 3 seconds. Large leg. -Bilateral upper extremities: Palpable brachial pulse. Motor, sensory intact. Capillary refill 3 seconds. -Right-sided upper and lower extremity: Motor is intact; however, has some weakness and paralysis that appears to be 4/5. Results Result Diagram: 09/22/18 0549 09/22/18 0549 ARIANA BLANK MD Sep 22, 2018 13:19
--- NOTE | 2018-09-22 15:52 | CONS ---
Assessment/Plan Assessment/Plan Hospital Course 38 yo F with hx of prior CVA, substance abuse, depression, and other comorbidities who presents for evaluation and management of respiratory sx. The pt had a witnessed seizure yesterday, for which neurology is consulted. Of note, the pt takes Wellbutrin.. Likely provoked seizure in the context of Wellbutrin therapy.. New onset epilepsy is additionally considered... MRI brain is reassuringly without acute intracranial pathology. P: Await EEG to evaluate for epileptiform activity Hold Wellbutrin indefinitely Limit psychotropic polypharmacy where possible Keppra not presently indicated Ativan IV PRN seizure > 5 min or for cluster Other medical management per primary Will follow clinically Result Diagram: 09/22/18 0549 09/22/18 0549 Results 24hrs Laboratory Tests Test 09/22/18 05:49 White Blood Count 5.9 # Red Blood Count 2.64 L Hemoglobin 7.8 L Hematocrit 24.3 L Mean Corpuscular Volume 92.0 Mean Corpuscular Hemoglobin 29.5 Mean Corpuscular Hemoglobin Concent 32.1 Red Cell Distribution Width 14.6 H Platelet Count 231 Mean Platelet Volume 11.1 H Immature Granulocytes % 0.300 Neutrophils % 50.2 Lymphocytes % 27.1 Monocytes % 9.6 Eosinophils % 12.0 H Basophils % 0.8 Nucleated Red Blood Cells % 0.0 Immature Granulocytes # 0.020 Neutrophils # 3.0 Lymphocytes # 1.6 Monocytes # 0.6 Eosinophils # 0.7 H Basophils # 0.1 Nucleated Red Blood Cells # 0.0 Sodium Level 140 Potassium Level 4.4 Chloride Level 106 Carbon Dioxide Level 25 Anion Gap 9 Blood Urea Nitrogen 62 H Creatinine 7.05 H Est Glomerular Filtrat Rate mL/min 6 L Glucose Level 104 Calcium Level 8.4 Consultation Date/Type/Reason Admit Date/Time Sep 15, 2018 at 10:45 Type of Consult Neurology Reason for Consultation seizure Requesting Provider: SYDNEY JACKSON Date/Time of Note DATE: 09/22/18 TIME: 15:52 24 HR Interval Summary Free Text/Dictation Continues telemetry monitoring. S/p MRI. Pt states that she's doing okay today. Exam Vital Signs Vitals Vital Signs Date Temp Pulse Resp B/P (MAP) Pulse Ox O2 O2 Flow FiO2 Time Delivery Rate 09/22/18 75 12:27 09/22/18 98.3 20 156/80 94 11:15 (105) 09/21/18 Nasal 2.0 15:55 Cannula 09/19/18 21 20:54 Intake and Output 09/21/18 09/21/18 09/22/18 1515:00 23:00 07:00 IntakeIntake Total 100 ml 300 ml 500 ml BalanceBalance 100 ml 300 ml 500 ml Exam PE: Gen Appearance: Flat, guarded/withdrawn HEENT: Normocephalic Cardiovascular: Regular rate Lungs: Clear bilaterally Abdomen: Soft Extremities: Dry NE: The patient was alert and oriented. Language was normal. Fund of knowledge was normal. Pupils were equal and reactive to light. There was no afferent pupillary defect. Visual willson were normal. Funduscopic examination was limited. Extra-ocular movements were full. Ptosis was absent. There was no nystagmus. Facial sensation was normal. Face was symmetric with normal strength. Hearing was intact. Palate movements were normal. Neck strength was normal. There was normal tongue bulk and speed of movement. Tone was normal. Muscle bulk was normal. I did not see fasciculations. Arms and legs were strong to confrontation. Vibration sensation was normal. Temperature and pinprick sensation was normal. Rapid alternating movements were normal. There was no dysmetria. There was no intention tremor. Gait was steady when ambulating unassisted. Arm and leg reflexes were 2+ and symmetric. Merchant's sign was absent. Plantar responses were flexor. FEDE POWELL NP Sep 22, 2018 15:52
--- NOTE | 2018-09-22 17:10 | PN ---
Date/Time of Note Date/Time of Note DATE: 09/22/18 TIME: 17:08 Assessment/Plan VTE Prophylaxis Risk score (from Ns)>0 risk: 6 SCD applied (from Ns): Yes Pharmacological prophylaxis: heparin Lines/Catheters IV Catheter Type (from [facility]): [place] Assessment/Plan Hospital Course Surgery was postponed yesterday, patient remains hemodynamically stable, afebrile, no seizure activity per RN. Assessment/Plan -Pulmonary congestion, s/p Lasix -Acute anemia, status post blood transfusion -Chronic kidney disease stage IV /V with progression to end-stage renal disease. Patient need to be initiated on hemodialysis. Dr. Panda is following in nephrology consultation. -Preserved ejection fraction per 2D echo Dr. Shields is following in cardiology consultation -Hypertension, continue hydralazine -Seizures, continue Keppra. Dr. Prado is following in neurology consultation. -Schizophrenia, continue patient's antipsychotic medications Further recommendations based on clinical course. Plan of care discussed with Dr. Carrero. Result Diagram: 09/22/18 0549 09/22/18 0549 Results 24hrs Laboratory Tests Test 09/22/18 05:49 White Blood Count 5.9 # Red Blood Count 2.64 L Hemoglobin 7.8 L Hematocrit 24.3 L Mean Corpuscular Volume 92.0 Mean Corpuscular Hemoglobin 29.5 Mean Corpuscular Hemoglobin Concent 32.1 Red Cell Distribution Width 14.6 H Platelet Count 231 Mean Platelet Volume 11.1 H Immature Granulocytes % 0.300 Neutrophils % 50.2 Lymphocytes % 27.1 Monocytes % 9.6 Eosinophils % 12.0 H Basophils % 0.8 Nucleated Red Blood Cells % 0.0 Immature Granulocytes # 0.020 Neutrophils # 3.0 Lymphocytes # 1.6 Monocytes # 0.6 Eosinophils # 0.7 H Basophils # 0.1 Nucleated Red Blood Cells # 0.0 Sodium Level 140 Potassium Level 4.4 Chloride Level 106 Carbon Dioxide Level 25 Anion Gap 9 Blood Urea Nitrogen 62 H Creatinine 7.05 H Est Glomerular Filtrat Rate mL/min 6 L Glucose Level 104 Calcium Level 8.4 Exam/Review of Systems Vital Signs Vitals Vital Signs Date Temp Pulse Resp B/P (MAP) Pulse Ox O2 O2 Flow FiO2 Time Delivery Rate 09/22/18 86 16:28 09/22/18 97.5 20 140/71 94 16:02 (94) 09/21/18 Nasal 2.0 15:55 Cannula 09/19/18 21 20:54 Intake and Output 09/21/18 09/21/18 09/22/18 1414:59 22:59 06:59 IntakeIntake Total 100 ml 300 ml 500 ml BalanceBalance 100 ml 300 ml 500 ml Exam Constitutional: alert, oriented Respiratory: diminished breath sounds Cardiovascular: regular rate and rhythm Gastrointestinal: soft, non-tender Musculoskeletal: nl extremities to inspection Extremities: normal pulses Neurological: nl mental status Skin: nl turgor Medications Medications Current Medications Nicotine (Nicoderm 21 Mg/ 24hr) 1 patch DAILY TRANSDERM Last administered on 09/22/18 10:29; Admin Dose 1 PATCH; Start 09/15/18 at 09:00 Amlodipine Besylate (Norvasc) 10 mg DAILY PO Last administered on 09/22/18 08:46; Admin Dose 10 MG; Start 09/16/18 at 09:00 Aspirin (Halfprin) 81 mg DAILY PO Last administered on 09/22/18 08:47; Admin Dose 81 MG; Start 09/15/18 at 12:00 Atorvastatin Calcium (Lipitor) 20 mg QHS PO Last administered on 09/21/18 21:17; Admin Dose 20 MG; Start 09/15/18 at 21:00 Fluphenazine HCl (Prolixin) 5 mg DAILY PO Last administered on 09/22/18 09:00; Admin Dose 5 MG; Start 09/16/18 at 09:00 Lorazepam (Ativan) 0.5 mg Q4H PRN PO ANXIETY Last administered on 09/19/18 00:00; Admin Dose 0.5 MG; Start 09/15/18 at 12:00 Sertraline HCl (Zoloft) 25 mg DAILY PO Last administered on 09/22/18 08:47; Admin Dose 25 MG; Start 09/16/18 at 09:00 Trazodone HCl (Desyrel) 50 mg QHS PO Last administered on 09/21/18 21:18; Admin Dose 50 MG; Start 09/15/18 at 21:00 IV Flush (NS 3 ml) 3 ml PER PROTOCOL IV ; Start 09/15/18 at 12:00 Ondansetron HCl (Zofran Inj) 4 mg Q6H PRN IV NAUSEA AND/OR VOMITING; Start 09/15/18 at 12:00 Albuterol (Proventil 0.083% (Neb)) 2.5 mg Q2H RESP THERAPY PRN NEB SHORTNESS OF BREATH Last administered on 09/19/18 20:56; Admin Dose 2.5 MG; Start 09/15/18 at 12:00 Ipratropium [place] (Atrovent 0.02% (Neb)) 0.5 mg Q2H RESP THERAPY PRN NEB SHORTNESS OF BREATH Last administered on 09/15/18 21:44; Admin Dose 0.5 MG; Start 09/15/18 at 12:00 Acetaminophen (Tylenol Liquid) 650 mg Q6H PRN PO PAIN LEVEL 1-3 OR FEVER Last administered on 09/19/18 21:22; Admin Dose 650 MG; Start 09/15/18 at 12:00 Lorazepam (Ativan) 1 mg Q2H PRN IV ANXIETY Last administered on 09/20/18 23:58; Admin Dose 1 MG; Start 09/15/18 at 12:00 Docusate Sodium (Colace) 100 mg Q12H PRN PO CONSTIPATION; Start 09/15/18 at 12:00 Pantoprazole (Protonix Tab) 40 mg DAILY@06 PO Last administered on 09/22/18 06:14; Admin Dose 40 MG; Start 09/16/18 at 06:00 Citric Acid/ Sodium Citrate (Bicitra) 30 ml TID PO Last administered on 09/22/18 15:58; Admin Dose 30 ML; Start 09/15/18 at 16:00 Sevelamer Carbonate (Renvela) 1,600 mg WITH MEALS PO Last administered on 09/22/18 07:55; Admin Dose 1,600 MG; Start 09/16/18 at 07:35 Hydralazine HCl (Apresoline) 10 mg Q4 PRN IV ELEVATED BLOOD PRESSURE; Start 09/16/18 at 13:30 Isosorbide Dinitrate (Isordil) 20 mg TID PO Last administered on 09/22/18 15:58; Admin Dose 20 MG; Start 09/16/18 at 21:00 Hydralazine HCl (Apresoline) 100 mg Q8 PO Last administered on 09/22/18 15:59; Admin Dose 100 MG; Start 09/18/18 at 22:00 Olanzapine (Zyprexa) 2.5 mg BID PO Last administered on 09/22/18at 08:47; Admin Dose 2.5 MG; Start 09/19/18 at 21:00 Morphine Sulfate (morphine) 2 mg Q4H PRN IV PAIN LEVEL 7-10 Last administered on 09/19/18at 22:32; Admin Dose 2 MG; Start 09/19/18 at 22:30 Epoetin Jimmy (Epogen (Esrd)) 10,000 units TuThSa@1700 SC ; Start 09/22/18 at 17:00 Levetiracetam (Keppra) 500 mg BID PO Last administered on 09/22/18at 10:26; Admin Dose 500 MG; Start 09/22/18 at 09:00 Furosemide (Lasix) 20 mg DAILY PO Last administered on 09/22/18at 10:28; Admin Dose 20 MG; Start 09/22/18 at 09:00 SYDNEY JACKSON Sep 22, 2018 17:10
[2018-09-22] MEDS: EPOETIN 10000 UNITS/1 ML INJ (ESRD) SC SCH (18:06)
--- NOTE | 2018-09-22 19:08 | NUR ---
EOSS;PT REMAINS STABLE;DENIES PAIN;MED SURG STATUS;AMBULATING WITH STEADY GAIT;PT WAITING FOR FISTULA PLACEMENT;ALL NEEDS MET,CON'T POC
[2018-09-22] MEDS: ATORVASTATIN 20 MG TAB PO SCH (22:11)
[2018-09-22] MEDS: traZODone 50 MG TAB PO SCH (22:12)
[2018-09-23] VITALS (7 sets, daily range): BP systolic 108–174; BP diastolic 59–100; PULSE 72–80; RESP 16–19
--- NOTE | 2018-09-23 02:15 | NUR ---
RN NOTES TRANSFER PATIENT TO MED SURG 2 NE WITH NO DISTRESS.PATIENT AWARE OF TRANSFER.REPORT GIVEN TO JOANNA FUNES.
--- NOTE | 2018-09-23 02:38 | NUR ---
MS unit notes: Received from telemetry unit via bed with transporter awake , alert and oriented .Educated with room set up, instructed to call for assist when needed. Seizure precautions observed , call light within easy reach , will continue plan of care.
--- NOTE | 2018-09-23 02:50 | NUR ---
RN NOTES: PATIENT REFUSED SKIN PHOTO DOCUMENTATION. RATIONALE DISCUSSED. PATIENT STILL REFUSED.
[2018-09-23] MEDS: IPRATROPIUM (NEB) 0.5 MG/2.5 ML AMP NEB PRN (03:23)
[2018-09-23] MEDS: ALBUTEROL 0.083% (NEB) 2.5 MG/3 ML AMP NEB PRN (03:24)
--- NOTE | 2018-09-23 03:48 | NUR ---
RN NOTES: PATIENT HAD REQUESTED FOR BREATHING TREAT. BREATHING TX GIVEN BY R.T. BP RECHECKED 148/75. CALL LIGHT WITHIN REACH. BED ALARM ACTIVATED.
--- NOTE | 2018-09-23 06:42 | NUR ---
EOSS; PATIENT BEEN ASSESSED FOR PAIN. BP BEEN MONITORED. SEIZURE PRECAUTION OBSERVED. NO SKIN PHOTO OBTAINED DUE TO PATIENT'S REFUSAL . HOURLY ROUNDING RENDERED. CALL LIGHT WITHIN REACH. FALL PRECAUTION OBSERVED.
--- NOTE | 2018-09-23 08:16 | CONS ---
Assessment/Plan Assessment/Plan Assessment/Plan 1. CKD V with worsening renal failure with Fluid overload and pulmonary congestion 2. Severe anemia with Hb 6.7 due to worsening CKD 3. metabolic acidosis 4. Anemia of CKD V s/p 2 units PRBC 5. H/o HTN 6. H/o CHF, acute on chronic diastolic vs systolic 7. H/o Schizophrenia 8. H/o Depression 9. H/o CVA with residual weakness Plan: ,BUN/Cr 62/7.05 eGFR 6 -lasix to 20mg pO BID Bicitra 30ml PO TID Epogen 6000 units on TTS for anemia Pt has worsening CKD to ESRD now, eGFR - discussed with pt about , she wants to wait before doing HD , pt can follow up with her Foot Drill Operator as outpatient will follow up Result Diagram: 09/22/18 0549 09/22/18 0549 Consultation Date/Type/Reason Admit Date/Time Sep 15, 2018 at 10:45 Initial Consult Date 09/15/18 Type of Consult NEPHROLOGY Requesting Provider: SYDNEY JACKSON 24 HR Interval Summary Free Text/Dictation BUN/Cr 62/7.05, pt refusign to have HD initiation Exam/Review of Systems Vital Signs Vitals Vital Signs Date Temp Pulse Resp B/P (MAP) Pulse Ox O2 O2 Flow FiO2 Time Delivery Rate 09/23/18 98.8 77 16 108/59 90 07:39 (75) 09/23/18 21 03:31 09/22/18 Nasal 2.0 20:00 Cannula Intake and Output 09/22/18 09/22/18 09/23/18 1515:00 23:00 07:00 IntakeIntake Total 450 ml 468 ml BalanceBalance 450 ml 468 ml Exam Constitutional: alert, awake, on acute distress Respiratory: crackles/rales, other (Bibasilar crackles, no wheezing ) Cardiovascular: regular rate and rhythm, nl pulses Gastrointestinal: soft, non-tender Musculoskeletal: swelling (1-2+ pittng edema, no clubbing, no cyanosis ) Neurological: CLAIM CLINICIAN II-XII intact, nl mental status Medications Medications Current Medications Nicotine (Nicoderm 21 Mg/ 24hr) 1 patch DAILY TRANSDERM Last administered on 09/22/18at 10:29; Admin Dose 1 PATCH; Start 09/15/18 at 09:00 Amlodipine Besylate (Norvasc) 10 mg DAILY PO Last administered on 09/22/18 08:46; Admin Dose 10 MG; Start 09/16/18 at 09:00 Aspirin (Halfprin) 81 mg DAILY PO Last administered on 09/22/18 08:47; Admin Dose 81 MG; Start 09/15/18 at 12:00 Atorvastatin Calcium (Lipitor) 20 mg QHS PO Last administered on 09/22/18 22:11; Admin Dose 20 MG; Start 09/15/18 at 21:00 Fluphenazine HCl (Prolixin) 5 mg DAILY PO Last administered on 09/22/18 09:00; Admin Dose 5 MG; Start 09/16/18 at 09:00 Lorazepam (Ativan) 0.5 mg Q4H PRN PO ANXIETY Last administered on 09/19/18 00:00; Admin Dose 0.5 MG; Start 09/15/18 at 12:00 Sertraline HCl (Zoloft) 25 mg DAILY PO Last administered on 09/22/18 08:47; Admin Dose 25 MG; Start 09/16/18 at 09:00 Trazodone HCl (Desyrel) 50 mg QHS PO Last administered on 09/22/18 22:12; Admin Dose 50 MG; Start 09/15/18 at 21:00 IV Flush (NS 3 ml) 3 ml PER PROTOCOL IV ; Start 09/15/18 at 12:00 Ondansetron HCl (Zofran Inj) 4 mg Q6H PRN IV NAUSEA AND/OR VOMITING; Start 09/15/18 at 12:00 Albuterol (Proventil 0.083% (Neb)) 2.5 mg Q2H RESP THERAPY PRN NEB SHORTNESS OF BREATH Last administered on 09/23/18 03:24; Admin Dose 2.5 MG; Start 09/15/18 at 12:00 Ipratropium [place] (Atrovent 0.02% (Neb)) 0.5 mg Q2H RESP THERAPY PRN NEB SHORTNESS OF BREATH Last administered on 09/23/18 03:23; Admin Dose 0.5 MG; Start 09/15/18 at 12:00 Acetaminophen (Tylenol Liquid) 650 mg Q6H PRN PO PAIN LEVEL 1-3 OR FEVER Last administered on 09/19/18 21:22; Admin Dose 650 MG; Start 09/15/18 at 12:00 Lorazepam (Ativan) 1 mg Q2H PRN IV ANXIETY Last administered on 09/20/18 23:58; Admin Dose 1 MG; Start 09/15/18 at 12:00 Docusate Sodium (Colace) 100 mg Q12H PRN PO CONSTIPATION; Start 09/15/18 at 12:00 Pantoprazole (Protonix Tab) 40 mg DAILY@06 PO Last administered on 09/22/18 06:14; Admin Dose 40 MG; Start 09/16/18 at 06:00 Citric Acid/ Sodium Citrate (Bicitra) 30 ml TID PO Last administered on 09/22/18 22:13; Admin Dose 30 ML; Start 09/15/18 at 16:00 Sevelamer Carbonate (Renvela) 1,600 mg WITH MEALS PO Last administered on 09/22/18 18:04; Admin Dose 1,600 MG; Start 09/16/18 at 07:35 Hydralazine HCl (Apresoline) 10 mg Q4 PRN IV ELEVATED BLOOD PRESSURE; Start 09/16/18 at 13:30 Isosorbide Dinitrate (Isordil) 20 mg TID PO Last administered on 09/22/18 22:12; Admin Dose 20 MG; Start 09/16/18 at 21:00 Hydralazine HCl (Apresoline) 100 mg Q8 PO Last administered on 09/22/18 22:12; Admin Dose 100 MG; Start 09/18/18 at 22:00 Olanzapine (Zyprexa) 2.5 mg BID PO Last administered on 09/22/18 22:11; Admin Dose 2.5 MG; Start 09/19/18 at 21:00 Morphine Sulfate (morphine) 2 mg Q4H PRN IV PAIN LEVEL 7-10 Last administered on 09/19/18 22:32; Admin Dose 2 MG; Start 09/19/18 at 22:30 Epoetin [place] (Epogen (Esrd)) 10,000 units TuThSa@1700 SC Last administered on 09/22/18 18:06; Admin Dose 10,000 UNITS; Start 09/22/18 at 17:00 Levetiracetam (Keppra) 500 mg BID PO Last administered on 1/22/19at 22:11; Admin Dose 500 MG; Start 09/22/18 at 09:00 Furosemide (Lasix) 20 mg BID DIURETICS PO ; Start 09/23/18 at 06:00 Date/Time of Note Date/Time of Note DATE: 09/23/18 TIME: 08:16 ISABELLE BROWNING MD Sep 23, 2018 08:16
[2018-09-23] MEDS: ISOSORBIDE DINITRATE 20 MG TAB PO SCH ×3 (08:54→20:54)
[2018-09-23] MEDS: AMLODIPINE 10 MG TAB PO SCH (08:55)
--- NOTE | 2018-09-23 09:10 | NUR ---
Dr. Panda aware patient refused chest xray to be done at this time, changed order to routine.
[2018-09-23] MEDS: FUROSEMIDE 20 MG TAB PO SCH ×2 (09:23→17:49)
[2018-09-23] MEDS: CITRIC ACID/NA CITRATE 30 ML CUP PO SCH ×3 (09:23→20:53)
[2018-09-23] MEDS: ASPIRIN (EC) 81 MG TAB PO SCH (09:23)
[2018-09-23] MEDS: PANTOPRAZOLE (EC) 40 MG TAB PO SCH (09:23)
[2018-09-23] MEDS: LEVETIRACETAM 500 MG TAB PO SCH ×2 (09:23→20:54)
[2018-09-23] MEDS: NICOTINE (21 MG/24 HR) PATCH TRANSDERM SCH (09:25)
[2018-09-23] MEDS: SEVELAMER CARBONATE 800 MG TABLET PO SCH ×3 (09:39→17:48)
[2018-09-23] MEDS: SERTRALINE 50 MG TAB PO SCH (09:40)
[2018-09-23] MEDS: OLANZAPINE 5 MG TAB PO SCH (09:41)
[2018-09-23] MEDS: FLUPHENAZINE 5 MG TAB PO SCH (09:41)
--- NOTE | 2018-09-23 13:42 | CONS ---
Assessment/Plan Assessment/Plan Hospital Course (Demo Recall) IMPRESSION: 1. Preoperative evaluation in patient who is to undergo creation of AV fistula.-neg trop x 3. NL EF by echo. Once volume status and BP improved then patient is moderate CV risk for the procedure 2. Congestive heart failure by chest x-ray, question systolic versus diastolic, likely acute on chronic and possibly more in the setting of volume overload in the setting of renal failure. 3. Hypertension, uncontrolled. 4. History of cerebrovascular accident with right-sided weakness. 5. History of traumatic brain injury. 6. Chronic kidney disease, to be started on hemodialysis. 7. Psychiatric disorder. 8. Severe anemia, status post transfusions. Recc: -Now on med-surg -serial ecg's -Continue norvasc/isordil/hydralazine -Continue lasix diuresis and follow volume status clsoely -OK to proceed with AVF creation as long as patient able to lay flat for procedure Consultation Date/Type/Reason Admit Date/Time Sep 15, 2018 at 10:45 Initial Consult Date 09/15/18 Type of Consult Cardiology Reason for Consultation Preop Requesting Provider: SYDNEY JACKSON Date/Time of Note DATE: 09/23/18 TIME: 13:38 Exam/Review of Systems Vital Signs Vitals Vital Signs Date Temp Pulse Resp B/P (MAP) Pulse Ox O2 O2 Flow FiO2 Time Delivery Rate 09/23/18 96 Room Air 12:01 09/23/18 98.8 77 16 108/59 07:39 (75) 09/23/18 21 03:31 09/22/18 2.0 20:00 Intake and Output 09/22/18 09/22/18 09/23/18 1515:00 23:00 07:00 IntakeIntake Total 450 ml 468 ml BalanceBalance 450 ml 468 ml Exam Exam Review of Systems: CONSTITUTIONAL: No fevers, chills. PULMONARY: No sob CARDIOVASCULAR: No chest pain/palpitations GASTROINTESTINAL: No nausea/vomiting. GENITOURINARY: No hematuria/dysuria. MUSCULOSKELETAL: No myagias/arthalgias. PSYCHIATRIC: The patient denies depression. NEUROLOGIC: No weakness Constitutional: alert, oriented Psych: no complaints Head: normocephalic ENMT: mucosa pink and moist Neck: supple, jvd Respiratory: diminished breath sounds (at bases/B) Cardiovascular: regular rate and rhythm Gastrointestinal: soft, non-tender Musculoskeletal: muscle tone (normal;) Extremities: edema (none) Neurological: other (No focal deficits) Labs Result Diagram: 09/22/18 0549 09/22/1849 Results 24hrs Laboratory Tests Test 09/23/18 10:16 Uric Acid 6.4 B-Type Natriuretic Peptide 70750 H ISABELLA MEZA Sep 23, 2018 13:42
--- NOTE | 2018-09-23 16:05 | PSY ---
Date/Time of Note Date/Time of Note DATE: 09/23/18 TIME: 15:55 Psychiatric Subjective Eval Consent Pt consented to telemedicine: No Subjective Evaluation Patient location: inpatient History of present illness Patient is a 38-year-old female with underlying medical issues of chronic kidney disease, congestive heart failure, hypertension, COPD, history of methamphetamine use, and traumatic brain injury . On a face to face evaluation, Patient admits hearing voices with no specific message, she however reports feeling hopeless, helpless, but denies suicidal ideation, and contracted for safety. Allergies: Coded Allergies: ampicillin (Verified Allergy, Unknown, 09/15/18) Substance Abuse Substance use: other Social History Marital status: single DPA/Conservatorship: No Psychiatric Objective Eval Review of Systems: Review of Systems: Not Applicable Physical Examination: Physical Examination: Not Applicable Appetite: Decreased Energy: Decreased Interest: Decreased Mental Status Examination: Appearance: Disheveled Eye Contact: Fair Behavior: Cooperative Speech: Clear AFFECT: Flat Mood: Depressed Thought Content: Hallucinations Orientation: x3 Attention Span: Distractible Laboratory Results Laboratory Tests Test 09/22/18 05:49 09/23/18 10:16 White Blood Count 5.9 10^3/ul Red Blood Count 2.64 10^6/ul Hemoglobin 7.8 g/dl Hematocrit 24.3 % Mean Corpuscular Volume 92.0 fl Mean Corpuscular Hemoglobin 29.5 pg Mean Corpuscular Hemoglobin Concent 32.1 g/dl Red Cell Distribution Width 14.6 % Platelet Count 231 10^3/UL Mean Platelet Volume 11.1 fl Immature Granulocytes % 0.300 % Neutrophils % 50.2 % Lymphocytes % 27.1 % Monocytes % 9.6 % Eosinophils % 12.0 % Basophils % 0.8 % Nucleated Red Blood Cells % 0.0 /100WBC Immature Granulocytes # 0.020 10^3/ul Neutrophils # 3.0 10^3/ul Lymphocytes # 1.6 10^3/ul Monocytes # 0.6 10^3/ul Eosinophils # 0.7 10^3/ul Basophils # 0.1 10^3/ul Nucleated Red Blood Cells # 0.0 10^3/ul Sodium Level 140 mmol/L Potassium Level 4.4 mmol/L Chloride Level 106 mmol/L Carbon Dioxide Level 25 mmol/L Anion Gap 9 Blood Urea Nitrogen 62 mg/dl Creatinine 7.05 mg/dl Est Glomerular Filtrat Rate mL/min 6 mL/min Glucose Level 104 mg/dl Calcium Level 8.4 mg/dl Uric Acid 6.4 mg/dl B-Type Natriuretic Peptide 92217 PG/ML Assessment and Plan Assessment/Diagnosis Diagnosis Schizophrenia unspecified Recommendation/Plan Medication Management Zyprexa 5 mg daily, Zoloft 25 mg daily, and trazodone 50 mg nightly for sleep. Psychotherapy Provide supportive therapy Discharge Disposition: Other Legal Status: Voluntary (Does not meets criteria for 5150) DUTCH MONTEZ NP Sep 23, 2018 16:05
--- NOTE | 2018-09-23 17:43 | PN ---
Date/Time of Note Date/Time of Note DATE: 09/23/18 TIME: 17:35 Assessment/Plan VTE Prophylaxis Risk [place]from [facility] [place] risk: 2 SCD applied (from [facility] [place]): Yes Pharmacological prophylaxis: NA/contraindicated Pharm contraindication: bleeding, surgical contra Lines/Catheters IV [facility]from [facility] Peripheral IV Assessment/Plan Hospital Course Patient denies any shortness of breath, chest x-ray with improved pulmonary edema. Plan for AV fistula surgery tomorrow. Assessment/Plan -Pulmonary congestion, resolved, continue Lasix. -Acute anemia, status post blood transfusion -Chronic kidney disease stage IV /V with progression to end-stage renal disease. Dr. Panda is following in nephrology consultation. -Preserved ejection fraction per 2D echo Dr. Shields is following in cardiology consultation -Hypertension, continue Norvasc and hydralazine -Seizures, continue Keppra. Dr. Prado is following in neurology consultation. -Schizophrenia, continue patient's antipsychotic medications, psychiatric evaluation appreciated Further recommendations based on clinical course. Plan of care discussed with Dr. Carrero. Result Diagram: 09/22/18 0549 09/22/18 0549 Results 24hrs Laboratory Tests Test 09/23/18 10:16 Uric Acid 6.4 B-Type Natriuretic Peptide 85356 H Exam/Review of Systems Vital Signs Vitals Vital Signs Date Temp Pulse Resp B/P (MAP) Pulse Ox O2 O2 Flow FiO2 Time Delivery Rate 09/23/18 80 167/100 15:14 (122) 09/23/18 96 Room Air 12:01 09/23/18 98.8 16 07:39 09/23/18 21 03:31 09/22/18 2.0 20:00 Intake and Output 09/22/18 09/22/18 09/23/18 1515:00 23:00 07:00 IntakeIntake Total 450 ml 468 ml BalanceBalance 450 ml 468 ml Exam Constitutional: alert, oriented Respiratory: diminished breath sounds Cardiovascular: nl pulse Gastrointestinal: soft, non-tender Musculoskeletal: nl extremities to inspection Extremities: normal pulses Neurological: nl mental status Skin: nl turgor Medications Medications Current Medications Nicotine (Nicoderm 21 Mg/ 24hr) 1 patch DAILY TRANSDERM Last administered on 09/23/18at 09:25; Admin Dose 1 PATCH; Start 09/15/18 at 09:00 Amlodipine Besylate (Norvasc) 10 mg DAILY PO Last administered on 09/22/18 08:46; Admin Dose 10 MG; Start 09/16/18 at 09:00 Aspirin (Halfprin) 81 mg DAILY PO Last administered on 09/23/18 09:23; Admin Dose 81 MG; Start 09/15/18 at 12:00 Atorvastatin Calcium (Lipitor) 20 mg QHS PO Last administered on 09/22/18 22:11; Admin Dose 20 MG; Start 09/15/18 at 21:00 Lorazepam (Ativan) 0.5 mg Q4H PRN PO ANXIETY Last administered on 09/19/18 00: 00; Admin Dose 0.5 MG; Start 09/15/18 at 12:00 Sertraline HCl (Zoloft) 25 mg DAILY PO Last administered on 09/23/18 09:40; Admin Dose 25 MG; Start 09/16/18 at 09:00 Trazodone HCl (Desyrel) 50 mg QHS PO Last administered on 09/22/18 22:12; Admin Dose 50 MG; Start 09/15/18 at 21:00 IV Flush (NS 3 ml) 3 ml PER PROTOCOL IV ; Start 09/15/18 at 12:00 Ondansetron HCl (Zofran Inj) 4 mg Q6H PRN IV NAUSEA AND/OR VOMITING; Start 09/15/18 at 12:00 Albuterol (Proventil 0.083% (Neb)) 2.5 mg Q2H RESP THERAPY PRN NEB SHORTNESS OF BREATH Last administered on 09/23/18 03:24; Admin Dose 2.5 MG; Start 09/15/18 at 12:00 Ipratropium [place] (Atrovent 0.02% (Neb)) 0.5 mg Q2H RESP THERAPY PRN NEB SHORTNESS OF BREATH Last administered on 09/23/18 03:23; Admin Dose 0.5 MG; Start 09/15/18 at 12:00 Acetaminophen (Tylenol Liquid) 650 mg Q6H PRN PO PAIN LEVEL 1-3 OR FEVER Last administered on 09/19/18 21:22; Admin Dose 650 MG; Start 09/15/18 at 12:00 Lorazepam (Ativan) 1 mg Q2H PRN IV ANXIETY Last administered on 09/20/18 23:58; Admin Dose 1 MG; Start 09/15/18 at 12:00 Docusate Sodium (Colace) 100 mg Q12H PRN PO CONSTIPATION; Start 09/15/18 at 12:00 Pantoprazole (Protonix Tab) 40 mg DAILY@06 PO Last administered on 09/23/18 09:23; Admin Dose 40 MG; Start 09/16/18 at 06:00 Citric Acid/ Sodium Citrate (Bicitra) 30 ml TID PO Last administered on 09/23/18 13:17; Admin Dose 30 ML; Start 09/15/18 at 16:00 Sevelamer Carbonate (Renvela) 1,600 mg WITH MEALS PO Last administered on 09/23/18 13:17; Admin Dose 1,600 MG; Start 09/16/18 at 07:35 Hydralazine HCl (Apresoline) 10 mg Q4 PRN IV ELEVATED BLOOD PRESSURE; Start 09/16/18 at 13:30 Isosorbide Dinitrate (Isordil) 20 mg TID PO Last administered on 09/23/18 13:33; Admin Dose 20 MG; Start 09/16/18 at 21:00 Hydralazine HCl (Apresoline) 100 mg Q8 PO Last administered on 09/23/18 13:17; Admin Dose 100 MG; Start 09/18/18 at 22:00 Morphine Sulfate (morphine) 2 mg Q4H PRN IV PAIN LEVEL 7-10 Last administered on 09/19/18 22:32; Admin Dose 2 MG; Start 09/19/18 at 22:30 Epoetin [place] (Epogen (Esrd)) 10,000 units TuThSa@1700 SC Last administered on 09/22/18 18:06; Admin Dose 10,000 UNITS; Start 09/22/18 at 17:00 Levetiracetam (Keppra) 500 mg BID PO Last administered on 09/23/18 09:23; Admin Dose 500 MG; Start 09/22/18 at 09:00 Furosemide (Lasix) 20 mg BID DIURETICS PO Last administered on 09/23/18 09:23; Admin Dose 20 MG; Start 09/23/18 at 06:00 Olanzapine (Zyprexa) 5 mg DAILY PO ; Start 09/24/18 at 09:00 SYDNEY JACKSON Sep 23, 2018 17:43
[2018-09-23] MEDS: hydrALAzine 20 MG INJ IV PRN (17:49)
--- NOTE | 2018-09-23 18:39 | NUR ---
END OF SHIFT Patient alert, no acute distress. OPERATIONS LIEUTENANT Rowena aware patient had x1 episode of nose bleed, moderate amount. Needs attended. No acute distress. Will continue to monitor.
[2018-09-23] MEDS: ATORVASTATIN 20 MG TAB PO SCH (20:53)
[2018-09-23] MEDS: traZODone 50 MG TAB PO SCH (20:54)
[2018-09-24] VITALS (15 sets, daily range): BP systolic 138–179; BP diastolic 70–88; PULSE 72–81; RESP 14–19
--- NOTE | 2018-09-24 01:44 | NUR ---
AVF Creation Follow UP : Received a call from MD Vadim Bird with phone orders to keep patient NPO starting this time , procedure is scheduled in the AM at 1100. Will endorsed to next charge / RN to follow up the validity of consent that was signed few days ago.
[2018-09-24] MEDS: ALBUTEROL 0.083% (NEB) 2.5 MG/3 ML AMP NEB PRN (02:28)
--- NOTE | 2018-09-24 04:43 | NUR ---
AMBULATES WITHIN HALLWAY. TOLERATED DUE MEDS GIVEN. KEPT NPO ORDERED. PT AWARE OF SCHEDULED AVF CREATION LATER TODAY. ASSISTED WITH NEEDS. CALL LIGHT WITHIN REACH. HAD AN EPISODE OF BEING UNCOOPERATIVE WITH COMMUNITY SUPPORT ASSOCIATE REGARDING VS TAKING. STAFF PROVIDED TIME FOR REST, THEN PT CALMED DOWN.
[2018-09-24] MEDS: FUROSEMIDE 20 MG TAB PO SCH ×2 (05:54→18:04)
[2018-09-24] MEDS: PANTOPRAZOLE (EC) 40 MG TAB PO SCH (05:54)
--- NOTE | 2018-09-24 06:22 | NUR ---
PT REFUSING TO BE DISTURBED ON HER SLEEP;REFUSED BP CHECK AT THIS TIME. WILL ENDORSE.
[2018-09-24] MEDS: hydrALAzine 20 MG INJ IV PRN ×2 (07:53→23:17)
[2018-09-24] MEDS: SEVELAMER CARBONATE 800 MG TABLET PO SCH ×3 (08:00→18:00)
[2018-09-24] MEDS: SERTRALINE 50 MG TAB PO SCH (09:00)
[2018-09-24] MEDS: ISOSORBIDE DINITRATE 20 MG TAB PO SCH ×3 (09:00→20:41)
[2018-09-24] MEDS: OLANZAPINE 5 MG TAB PO SCH (09:00)
[2018-09-24] MEDS: ASPIRIN (EC) 81 MG TAB PO SCH (09:00)
[2018-09-24] MEDS: AMLODIPINE 10 MG TAB PO SCH (09:00)
[2018-09-24] MEDS: CITRIC ACID/NA CITRATE 30 ML CUP PO SCH ×3 (09:00→20:40)
[2018-09-24] MEDS: LEVETIRACETAM 500 MG TAB PO SCH ×2 (09:00→20:40)
[2018-09-24] MEDS: NICOTINE (21 MG/24 HR) PATCH TRANSDERM SCH (09:51)
--- NOTE | 2018-09-24 10:32 | NUR ---
Patient transported to OR for surgery. Patient not in any distress. Report given to MARIN Samuel.
--- NOTE | 2018-09-24 10:49 | NUR ---
Patient will be transferred to [facility] after surgery. Patient belongings as follows (3 bags and 1 jacket): Black jacket black purse 1 pair of sandals Clothing
--- NOTE | 2018-09-24 10:52 | PREAC ---
Date/Time of Note Date/Time of Note DATE: 09/24/18 TIME: 10:49 Anesthesia Eval and Record Evaluation Time Pre-Procedure Interview DATE: 09/24/18 TIME: 10:49 Age 38 Sex female NPO: 8 hrs Preoperative diagnosis ESRD Planned procedure AV fistula creation Past Medical History Past Medical History: Includes Cardio: HTN, CHF Pulm: Other (hx of tracheostomy ) Neuro: CVA, Seizure disorder Renal: CKD Heme: Anemia Psych: Bipolar, Other (schizophrenia not taking any medication, refused to lay flat ) Surgery & Anesthesia Issues No known issue Meds Anticoagulation: No Beta Cintia within 24 hr: No Reason Beta Cintia not given: Pt. not on B-Cintia Reported Medications Albuterol Sulfate* (Ventolin HFA*) 18 Gm Hfa.aer.ad, 2 PUFF INHALATION Q4H, #1 INHALER 09/15/18 Bupropion Hcl* (Wellbutrin XL*) 150 Mg Tab.sr.24h, 150 MG PO DAILY, TAB.SA 09/15/18 Fluphenazine Hcl* (Prolixin*) 5 Mg Tab, 5 MG PO DAILY, TAB 09/15/18 Atorvastatin Calcium* (Atorvastatin Calcium*) 20 Mg Tablet, 20 MG PO QHS, #30 TAB 09/15/18 Isosorbide Mononitrate* (Isosorbide Mononitrate*) 20 Mg Tablet, 20 MG PO BID, TAB 09/15/18 Aspirin (Low Dose Aspirin) 81 Mg Tablet.dr, 81 MG PO DAILY, #30 TAB 09/15/18 Hydralazine Hcl* (Hydralazine Hcl*) 25 Mg Tab, 25 MG PO TID PRN for ELEVATED BLOOD PRESSURE, #90 TAB 09/15/18 Amlodipine Besylate* (Amlodipine Besylate*) 10 Mg Tablet, 10 MG PO DAILY, #30 TAB 09/15/18 Sertraline Hcl* (Zoloft*) 25 Mg Tablet, 25 MG PO DAILY, #30 TAB 09/15/18 Lorazepam* (Lorazepam*) 0.5 Mg Tablet, 0.5 MG PO Q4 PRN for ANXIETY, TAB 09/15/18 Trazodone Hcl* (Trazodone Hcl*) 50 Mg Tablet, 50 MG PO QHS, #30 TAB 09/15/18 Current Medications Nicotine (Nicoderm 21 Mg/ 24hr) 1 patch DAILY TRANSDERM Last administered on 09/24/18 09:51; Admin Dose 1 PATCH; Start 09/15/18 at 09:00 Amlodipine Besylate (Norvasc) 10 mg DAILY PO Last administered on 09/22/18 08:46; Admin Dose 10 MG; Start 09/16/18 at 09:00 Aspirin (Halfprin) 81 mg DAILY PO Last administered on 09/23/18 09:23; Admin Dose 81 MG; Start 09/15/18 at 12:00 Atorvastatin Calcium (Lipitor) 20 mg QHS PO Last administered on 09/23/18 20:53; Admin Dose 20 MG; Start 09/15/18 at 21:00 Lorazepam (Ativan) 0.5 mg Q4H PRN PO ANXIETY Last administered on 09/19/18 00:00; Admin Dose 0.5 MG; Start 09/15/18 at 12:00 Sertraline HCl (Zoloft) 25 mg DAILY PO Last administered on 09/23/18 09:40; Admin Dose 25 MG; Start 09/16/18 at 09:00 Trazodone HCl (Desyrel) 50 mg QHS PO Last administered on 09/23/18 20:54; Admin Dose 50 MG; Start 09/15/18 at 21:00 IV Flush (NS 3 ml) 3 ml PER PROTOCOL IV ; Start 09/15/18 at 12:00 Ondansetron HCl (Zofran Inj) 4 mg Q6H PRN IV NAUSEA AND/OR VOMITING; Start 09/15/18 at 12:00 Albuterol (Proventil 0.083% (Neb)) 2.5 mg Q2H RESP THERAPY PRN NEB SHORTNESS OF BREATH Last administered on 09/24/18 02:28; Admin Dose 2.5 MG; Start 09/15/18 at 12:00 Ipratropium [place] (Atrovent 0.02% (Neb)) 0.5 mg Q2H RESP THERAPY PRN NEB SHORTNESS OF BREATH Last administered on 09/23/18 03:23; Admin Dose 0.5 MG; Start 09/15/18 at 12:00 Acetaminophen (Tylenol Liquid) 650 mg Q6H PRN PO PAIN LEVEL 1-3 OR FEVER Last administered on 09/19/18 21:22; Admin Dose 650 MG; Start 09/15/18 at 12:00 Lorazepam (Ativan) 1 mg Q2H PRN IV ANXIETY Last administered on 09/20/18 23:58; Admin Dose 1 MG; Start 09/15/18 at 12:00 Docusate Sodium (Colace) 100 mg Q12H PRN PO CONSTIPATION; Start 09/15/18 at 12:00 Pantoprazole (Protonix Tab) 40 mg DAILY@06 PO Last administered on 09/23/18 09:23; Admin Dose 40 MG; Start 09/16/18 at 06:00 Citric Acid/ Sodium Citrate (Bicitra) 30 ml TID PO Last administered on 09/23/18 20:53; Admin Dose 30 ML; Start 09/15/18 at 16:00 Sevelamer Carbonate (Renvela) 1,600 mg WITH MEALS PO Last administered on 09/23/18 17:48; Admin Dose 1,600 MG; Start 09/16/18 at 07:35 Hydralazine HCl (Apresoline) 10 mg Q4 PRN IV ELEVATED BLOOD PRESSURE Last administered on 09/24/18 07:53; Admin Dose 10 MG; Start 09/16/18 at 13:30 Isosorbide Dinitrate (Isordil) 20 mg TID PO Last administered on 09/23/18 20:54; Admin Dose 20 MG; Start 09/16/18 at 21:00 Hydralazine HCl (Apresoline) 100 mg Q8 PO Last administered on 09/23/18 21:21; Admin Dose 100 MG; Start 09/18/18 at 22:00 Morphine Sulfate (morphine) 2 mg Q4H PRN IV PAIN LEVEL 7-10 Last administered on 09/19/18 22:32; Admin Dose 2 MG; Start 09/19/18 at 22:30 Epoetin Jimmy (Epogen (Esrd)) 10,000 units TuThSa@1700 SC Last administered on 09/22/18 18:06; Admin Dose 10,000 UNITS; Start 09/22/18 at 17:00 Levetiracetam (Keppra) 500 mg BID PO Last administered on 09/23/18 20:54; Admin Dose 500 MG; Start 09/22/18 at 09:00 Furosemide (Lasix) 20 mg BID DIURETICS PO Last administered on 1/23/19at 17:49; Admin Dose 20 MG; Start 09/23/18 at 06:00 Olanzapine (Zyprexa) 5 mg DAILY PO ; Start 09/24/18 at 09:00 Meds reviewed: Yes Allergies Coded Allergies: ampicillin (Verified Allergy, Unknown, 09/15/18) Allergies Reviewed: Yes Labs/Studies Labs Reviewed: Reviewed by anesthesiologist Result Diagram: 09/24/18 0509 09/24/18 0509 Laboratory Tests 09/24/18 05:09 test: Negative Pre-procedure Exam Last vitals Vital Signs Date Temp Pulse Resp B/P (MAP) Pulse Ox O2 O2 Flow FiO2 Time Delivery Rate 09/24/18 98.3 78 18 175/84 95 07:52 (114) 09/24/18 21 02:28 09/24/18 Room Air 01:43 09/22/18 2.0 20:00 Airway: Adequate mouth opening, Adequate thyromental dist Mallampati: Mallampati IV Teeth: Normal Lung: Normal Heart: Normal ASA Physical Status ASA physical status: 4 Emergency: None Pre-operative Attestations Prior to commencing anesthesia and surgery, the patient was re-evaluated, there was verification of: *The patient's identity *The results of appropriate recent lab work and preoperative vital signs *The above evaluation not changing prior to induction *Anesthetic plan, risk benefits, alternative and complications discussed with patient/family; questions answered; patient/family understands, accepts and wishes to proceed. PATRICK EVERETT DO Sep 24, 2018 10:52
[2018-09-24] MEDS ORDERED: LIDOCAINE 1% (MPF) 30 ML INJ ONE (10:54)
[2018-09-24] MEDS ORDERED: GELATIN SIZE 100 SPONGE ONE (10:54)
[2018-09-24] MEDS ORDERED: THROMBIN 5000 UNIT VIAL ONE ×2 (10:55→13:32)
[2018-09-24] MEDS ORDERED: HEPARIN 1000 UNITS/ML 10 ML INJ ONE (10:55)
[2018-09-24] MEDS ORDERED: ROCURONIUM 50 MG INJ ONE (11:02)
[2018-09-24] MEDS ORDERED: ETOMIDATE 20 MG INJ ONE (11:02)
--- NOTE | 2018-09-24 11:02 | NUR ---
Report given to MARIN Funes. Addendum: 09/24/18 at 1103 by RUBÉN SANDOVAL RN for
[2018-09-24] MEDS ORDERED: MIDAZOLAM 1 MG/ML 2 ML INJ ONE ×3 (11:03→12:39)
[2018-09-24] MEDS ORDERED: LIDOCAINE 1% (MDV) 20 ML INJ ONE (11:03)
[2018-09-24] MEDS ORDERED: FENTAnyl 50 MCG/ML VIAL ONE ×2 (11:03→12:39)
[2018-09-24] MEDS ORDERED: ROPIVACAINE 0.5 % 30 ML VIAL ONE (11:09)
[2018-09-24] MEDS ORDERED: HEPARIN 1000 UNITS/ML 10 ML INJ IRR ONE (11:15)
[2018-09-24] MEDS ORDERED: LIDOCAINE 2% JELLY 5 ML ONE (11:17)
--- NOTE | 2018-09-24 11:26 | CONS ---
Assessment/Plan Assessment/Plan Assessment/Plan 1. CKD V with worsening renal failure with Fluid overload and pulmonary congestion 2. Severe anemia with Hb 6.7 due to worsening CKD 3. metabolic acidosis 4. Anemia of CKD V s/p 2 units PRBC 5. H/o HTN 6. H/o CHF, acute on chronic diastolic vs systolic 7. H/o Schizophrenia 8. H/o Depression 9. H/o CVA with residual weakness Plan: ,BUN/Cr 60/6.92 eGFR 7 -lasix to 20mg pO BID Bicitra 30ml PO TID Epogen 6000 units on TTS for anemia Pt has worsening CKD to ESRD now, eGFR - discussed with pt about , she wants to wait before doing HD ,plan for AVF today pt can follow up with her [facility] as outpatient will follow up Result Diagram: 09/24/18 0509 09/24/18 0509 Results 24hrs Laboratory Tests Test 09/24/18 05:05 09/24/18 05:09 Serum HCG, Qualitative NEGATIVE White Blood Count 7.4 # Red Blood Count 2.79 L Hemoglobin 8.2 L Hematocrit 25.8 L Mean Corpuscular Volume 92.5 Mean Corpuscular Hemoglobin 29.4 Mean Corpuscular Hemoglobin Concent 31.8 L Red Cell Distribution Width 14.5 Platelet Count 228 Mean Platelet Volume 11.0 H Immature Granulocytes % 0.700 H Neutrophils % 56.7 Lymphocytes % 22.6 Monocytes % 7.9 Eosinophils % 11.4 H Basophils % 0.7 Nucleated Red Blood Cells % 0.0 Immature Granulocytes # 0.050 H Neutrophils # 4.2 Lymphocytes # 1.7 Monocytes # 0.6 Eosinophils # 0.8 H Basophils # 0.1 Nucleated Red Blood Cells # 0.0 Sodium Level 140 Potassium Level 4.5 Chloride Level 105 Carbon Dioxide Level 25 Anion Gap 10 Blood Urea Nitrogen 60 H Creatinine 6.92 H Est Glomerular Filtrat Rate mL/min 7 L Glucose Level 86 Calcium Level 8.7 Consultation Date/Type/Reason Admit Date/Time Sep 15, 2018 at 10:45 Initial Consult Date 09/15/18 Type of Consult NEPHROLOGY Requesting Provider: SYDNEY JACKSON 24 HR Interval Summary Free Text/Dictation plan for AVF today, BUn/Cr still high, no signs of volume overload, Bp stable Exam/Review of Systems Vital Signs Vitals Vital Signs Date Temp Pulse Resp B/P (MAP) Pulse Ox O2 O2 Flow FiO2 Time Delivery Rate 09/24/18 98.3 78 18 175/84 95 07:52 (114) 09/24/18 21 02:28 09/24/18 Room Air 01:43 09/22/18 2.0 20:00 Intake and Output 09/23/18 09/23/18 09/24/18 1515:00 23:00 07:00 IntakeIntake Total 840 ml 480 ml BalanceBalance 840 ml 480 ml Exam Constitutional: alert, awake, on acute distress Respiratory: crackles/rales, other (Bibasilar crackles, no wheezing ) Cardiovascular: regular rate and rhythm, nl pulses Gastrointestinal: soft, non-tender Musculoskeletal: swelling (1-2+ pittng edema, no clubbing, no cyanosis ) Neurological: KILN FIRER II-XII intact, nl mental status Medications Medications Current Medications Nicotine (Nicoderm 21 Mg/ 24hr) 1 patch DAILY TRANSDERM Last administered on 09/24/18 09:51; Admin Dose 1 PATCH; Start 09/15/18 at 09:00 Amlodipine Besylate (Norvasc) 10 mg DAILY PO Last administered on 09/22/18 08:46; Admin Dose 10 MG; Start 09/16/18 at 09:00 Aspirin (Halfprin) 81 mg DAILY PO Last administered on 09/23/18 09:23; Admin Dose 81 MG; Start 09/15/18 at 12:00 Atorvastatin Calcium (Lipitor) 20 mg QHS PO Last administered on 09/23/18 20:53; Admin Dose 20 MG; Start 09/15/18 at 21:00 Lorazepam (Ativan) 0.5 mg Q4H PRN PO ANXIETY Last administered on 09/19/18 00:00; Admin Dose 0.5 MG; Start 09/15/18 at 12:00 Sertraline HCl (Zoloft) 25 mg DAILY PO Last administered on 09/23/18 09:40; Admin Dose 25 MG; Start 09/16/18 at 09:00 Trazodone HCl (Desyrel) 50 mg QHS PO Last administered on 09/23/18 20:54; Adm in Dose 50 MG; Start 09/15/18 at 21:00 IV Flush (NS 3 ml) 3 ml PER PROTOCOL IV ; Start 09/15/18 at 12:00 Ondansetron HCl (Zofran Inj) 4 mg Q6H PRN IV NAUSEA AND/OR VOMITING; Start 09/15/18 at 12:00 Albuterol (Proventil 0.083% (Neb)) 2.5 mg Q2H RESP THERAPY PRN NEB SHORTNESS OF BREATH Last administered on 09/24/18 02:28; Admin Dose 2.5 MG; Start 09/15/18 at 12:00 Ipratropium [place] (Atrovent 0.02% (Neb)) 0.5 mg Q2H RESP THERAPY PRN NEB SHORTNESS OF BREATH Last administered on 09/23/18 03:23; Admin Dose 0.5 MG; Start 09/15/18 at 12:00 Acetaminophen (Tylenol Liquid) 650 mg Q6H PRN PO PAIN LEVEL 1-3 OR FEVER Last administered on 09/19/18 21:22; Admin Dose 650 MG; Start 09/15/18 at 12:00 Lorazepam (Ativan) 1 mg Q2H PRN IV ANXIETY Last administered on 09/20/18 23:58; Admin Dose 1 MG; Start 09/15/18 at 12:00 Docusate Sodium (Colace) 100 mg Q12H PRN PO CONSTIPATION; Start 09/15/18 at 12:00 Pantoprazole (Protonix Tab) 40 mg DAILY@06 PO Last administered on 09/23/18 09:23; Admin Dose 40 MG; Start 09/16/18 at 06:00 Citric Acid/ Sodium Citrate (Bicitra) 30 ml TID PO Last administered on 09/23/18 20:53; Admin Dose 30 ML; Start 09/15/18 at 16:00 Sevelamer Carbonate (Renvela) 1,600 mg WITH MEALS PO Last administered on 09/23/18 17:48; Admin Dose 1,600 MG; Start 09/16/18 at 07:35 Hydralazine HCl (Apresoline) 10 mg Q4 PRN IV ELEVATED BLOOD PRESSURE Last administered on 09/24/18 07:53; Admin Dose 10 MG; Start 09/16/18 at 13:30 Isosorbide Dinitrate (Isordil) 20 mg TID PO Last administered on 09/23/18 20:54; Admin Dose 20 MG; Start 09/16/18 at 21:00 Hydralazine HCl (Apresoline) 100 mg Q8 PO Last administered on 09/23/18at 21:21; Admin Dose 100 MG; Start 09/18/18 at 22:00 Morphine Sulfate (morphine) 2 mg Q4H PRN IV PAIN LEVEL 7-10 Last administered on 09/19/18at 22:32; Admin Dose 2 MG; Start 09/19/18 at 22:30 Epoetin [place] (Epogen (Esrd)) 10,000 units TuThSa@1700 SC Last administered on 09/22/18at 18:06; Admin Dose 10,000 UNITS; Start 09/22/18 at 17:00 Levetiracetam (Keppra) 500 mg BID PO Last administered on 09/23/18at 20:54; Admin Dose 500 MG; Start 09/22/18 at 09:00 Furosemide (Lasix) 20 mg BID DIURETICS PO Last administered on 09/23/18at 17:49; Admin Dose 20 MG; Start 09/23/18 at 06:00 Olanzapine (Zyprexa) 5 mg DAILY PO ; Start 09/24/18 at 09:00 Date/Time of Note Date/Time of Note DATE: 09/24/18 TIME: 11:26 ISABELLE BROWNING MD Sep 24, 2018 11:26
[2018-09-24] MEDS ORDERED: LIDOCAINE 1% (MDV) 20 ML INJ INJ ONE (11:30)
--- NOTE | 2018-09-24 11:32 | HPN ---
Date/Time of Note Date/Time of Note DATE: 09/24/18 TIME: 11:32 Interval H&P Admission Note Pt. seen H&P reviewed: No system changes ARIANA BLANK MD Sep 24, 2018 11:32
[2018-09-24] MEDS ORDERED: KETAMINE (50 MG/ML) 10 ML VIAL ONE (11:51)
[2018-09-24] MEDS ORDERED: DIPHENHYDRAMINE 50 MG INJ ONE (12:36)
[2018-09-24] MEDS ORDERED: GELATIN SIZE 100 SPONGE TOP ONE (13:03)
[2018-09-24] MEDS ORDERED: THROMBIN 5000 UNIT VIAL TOP ONE ×2 (13:03→13:34)
[2018-09-24] MEDS ORDERED: hydrALAzine 20 MG INJ ONE (13:53)
[2018-09-24] MEDS ORDERED: DESMOPRESSIN 20 MCG in NS 50 ML IV ONE (14:00)
--- NOTE | 2018-09-24 14:05 | OPR ---
Date/Time of Note Date/Time of Note DATE: 09/24/18 TIME: 14:03 Operative Report Procedure Date: Sep 24, 2018 Preoperative Diagnosis CKD STAGE 5 Postoperative Diagnosis SAME Operation/Procedure Performed LEFT ARM BRACHIOCEPHALIC FISTULA CREATION Surgeon see signature line Instrument Checker NONE Anesthesia Type: moderate sedation, other (BLOCK) Estimated Blood Loss: 10 - 50 ml's Transfusion none Specimen NONE Grafts/Implants none Complications none Pt Condition Post Procedure: stable Disposition: PACU Procedure Description DATE OF OPERATION: 09/24/2018 SURGEON: Vadim Blank MD PREOPERATIVE DIAGNOSIS: Chronic kidney disease stage V POSTOPERATIVE DIAGNOSIS: Chronic kidney disease Stage V PROCEDURE: Left arm brachiocephalic fistula. creation ANESTHESIA: Regional Block and Local COMPLICATIONS: None. ESTIMATED BLOOD LOSS: 50ml TRANSFUSIONS: None SPECIMEN: None. INDICATIONS: This is a 38-year-old diabetic type II female with a plethora of medical conditions and history of impending end-stage renal artery disease. The risks and benefits of the procedure were discussed with the patient and not limited to , MT, pneumonia, stroke, infection, thrombosis of graft and arteriovenous fistula, nerve injury, limb loss, revisions of AVF, steal and she elected to undergo surgical intervention. DESCRIPTION: The patient was placed in supine position on the operating room table. The arms were placed at 80 degrees. The normal bony prominences were padded. The anesthesia team had placed the appropriate lines and anesthesia was induced. Time out performed and the appropriate site was marked and confirmed. The patient's upper extremity prepped and draped in the usual standard sterile fashion. Preoperative antibiotics were administered prior to the skin incision since the patient already had been on antibiotics. A 6 cm transverse skin incision was then performed below the antecubital fossa. The cephalic vein was identified and dissected for a segment of nearly 5 cm this was challenging as she has a large arm and the vein was deep. Dissection was then carried as distally as possible through that incision. Attention was then directed to the brachial artery. The tendinous aponeurosis of the biceps muscle was then incised. Location of the brachial artery was then identified by palpation. The soft tissue over the brachial artery was then incised, and the brachial artery was then confirmed. The patient was given 2500 units of heparin intravenously. The cephalic vein was then ligated at its most distal end. Yasargil clamps were then applied on the brachial artery, and a 6 mm incision in the anterior wall of the brachial artery was then performed. The cephalic vein was then gently curved and allowed to lay over the arteriotomy. The end of the vein was spatulated to match the side of the arteriotomy. The anastomosis was then performed using a running 6-0 Prolene suture. At the completion of the suture line the brachial artery was forward-flushed and then allowed to backbleed. The cephalic vein was also allowed to backbleed. The anastomosis was irrigated with heparinized saline solution. The suture was then tied and the suture line evaluated for hemostasis, which was adequate. There was evidence of excellent thrill in the cephalic vein. There was a strong pulse palpable in the brachial, radial, and ulnar arteries at the wrist. There was no evidence of any kinks. The subcutaneous tissue was then closed with a 3-0 Vicryl running suture and the skin closed with francheska. There was evidence of excellent thrill in the cephalic vein after the wound closure. The patient tolerated the procedure well, was taken to the postanesthesia care unit in stable condition. All instruments, catheters, sponge, and needles were corrected x2. VADIM BLANK MD Sep 24, 2018 14:05
--- NOTE | 2018-09-24 14:11 | PAC ---
Date/Time of Note Date/Time of Note DATE: 09/24/18 TIME: 14:11 Post-Anesthesia Notes Post-Anesthesia Note Last documented vital signs Vital Signs Date Temp Pulse Resp B/P (MAP) Pulse Ox O2 O2 Flow FiO2 Time Delivery Rate 09/24/18 98.5 85 21 155/60 95 1400 09/24/18 21 02:28 09/24/18 Room Air 01:43 09/22/18 2.0 20:00 Activity: WNL Respiratory function: WNL Cardiovascular function: WNL Mental status: Baseline Pain reasonably controlled: Yes Hydration appropriate: Yes Nausea/Vomiting absent: Yes PATRICK EVERETT DO Sep 24, 2018 14:11
[2018-09-24] MEDS ORDERED: FENTAnyl 50 MCG/ML VIAL IV PRN (14:30)
[2018-09-24] MEDS ORDERED: hydrALAzine 20 MG INJ IV PRN (14:30)
--- NOTE | 2018-09-24 15:36 | NUR ---
PACU TRANSFERRED TO 5537 IN STABLE COND. PER TERENCE FUNES MS PT ROOM CHANGED FROM 2285 TO 5537, REPORT GIVEN TO WAQAS FUNES MS, PT SP LEFT AV FISTULA CREATION, DSG DRY/INTACT. RADIAL PULSE + SURGICAL SIDE. ARM SLING APPLIED IN OR. DDAVP ADMIN PER ORDERS. Addendum: 09/24/18 at 1542 by CRISPIN GARCIA RN Amended: Links added.
--- NOTE | 2018-09-24 16:04 | NUR ---
RN Notes: Received from PACU. Pt is awake, alert and oriented. O2 @ 2L/NC. Left arm dressing clean,dry and intact. Arm sling in place. Left radial pulse + normal. Belongings at bedside. Oriented to new room and staff.
[2018-09-24] MEDS: EPOETIN 10000 UNITS/1 ML INJ (ESRD) SC SCH (18:09)
--- NOTE | 2018-09-24 18:42 | CONS ---
Assessment/Plan Assessment/Plan Hospital Course (Demo Recall) IMPRESSION: 1. Preoperative evaluation in patient who is to undergo creation of AV fistula.-neg trop x 3. NL EF by echo. Once volume status and BP improved then patient is moderate CV risk for the procedure. Now post-op s/p creation of AVF 2. Congestive heart failure by chest x-ray, question systolic versus diastolic, likely acute on chronic and possibly more in the setting of volume overload in the setting of renal failure. 3. Hypertension-mildly elevated 4. History of cerebrovascular accident with right-sided weakness. 5. History of traumatic brain injury. 6. Chronic kidney disease, to be started on hemodialysis. 7. Psychiatric disorder. 8. Severe anemia, status post transfusions. Recc: -Now on med-surg -serial ecg's -f/u BP after receiving norvasc/isordil/hydralazine -Continue lasix diuresis and follow volume status clsoely -routine post-op care Consultation Date/Type/Reason Admit Date/Time Sep 15, 2018 at 10:45 Initial Consult Date 09/15/18 Type of Consult Cardiology Reason for Consultation CHF Requesting Provider: SYDNEY JACKSON Date/Time of Note DATE: 09/24/18 TIME: 18:37 Exam/Review of Systems Vital Signs Vitals Vital Signs Date Temp Pulse Resp B/P (MAP) Pulse Ox O2 O2 Flow FiO2 Time Delivery Rate 09/24/18 98.0 73 18 157/79 97 Nasal 17:01 (105) Cannula 09/24/18 2.0 15:03 09/24/18 21 02:28 Intake and Output 09/23/18 09/23/18 09/24/18 1515:00 23:00 07:00 IntakeIntake Total 840 ml 480 ml BalanceBalance 840 ml 480 ml Exam Exam Review of Systems: CONSTITUTIONAL: No fevers, chills. PULMONARY: No sob CARDIOVASCULAR: No chest pain/palpitations GASTROINTESTINAL: No nausea/vomiting. GENITOURINARY: No hematuria/dysuria. MUSCULOSKELETAL: No myagias/arthalgias. PSYCHIATRIC: The patient denies depression. NEUROLOGIC: No weakness Constitutional: alert, oriented Psych: no complaints Head: normocephalic ENMT: mucosa pink and moist Neck: supple, jvd Respiratory: diminished breath sounds (at bases/b) Cardiovascular: regular rate and rhythm Gastrointestinal: soft, non-tender Musculoskeletal: muscle tone (normal) Extremities: other (L arm s/p surgery in sling) Neurological: other (no focal ) Labs Result Diagram: 09/24/18 0509 09/24/18 0509 Results 24hrs Laboratory Tests Test 09/24/18 05:05 09/24/18 05:09 Serum HCG, Qualitative NEGATIVE White Blood Count 7.4 # Red Blood Count 2.79 L Hemoglobin 8.2 L Hematocrit 25.8 L Mean Corpuscular Volume 92.5 Mean Corpuscular Hemoglobin 29.4 Mean Corpuscular Hemoglobin Concent 31.8 L Red Cell Distribution Width 14.5 Platelet Count 228 Mean Platelet Volume 11.0 H Immature Granulocytes % 0.700 H Neutrophils % 56.7 Lymphocytes % 22.6 Monocytes % 7.9 Eosinophils % 11.4 H Basophils % 0.7 Nucleated Red Blood Cells % 0.0 Immature Granulocytes # 0.050 H Neutrophils # 4.2 Lymphocytes # 1.7 Monocytes # 0.6 Eosinophils # 0.8 H Basophils # 0.1 Nucleated Red Blood Cells # 0.0 Sodium Level 140 Potassium Level 4.5 Chloride Level 105 Carbon Dioxide Level 25 Anion Gap 10 Blood Urea Nitrogen 60 H Creatinine 6.92 H Est Glomerular Filtrat Rate mL/min 7 L Glucose Level 86 Calcium Level 8.7 ISABELLA MEZA Sep 24, 2018 18:42
--- NOTE | 2018-09-24 18:52 | PN ---
Date/Time of Note Date/Time of Note DATE: 09/24/18 TIME: 18:49 Assessment/Plan [place] [facility] [place]: 6 [place] [facility] [place] Yes Pharmacological prophylaxis: NA/contraindicated Pharm contraindication: surgical contra Lines/Catheters IV [facility]ter Type (from [facility] Peripheral IV Assessment/Plan Hospital Course Patient is status post left arm brachiocephalic fistula creation today, remains hemodynamically stable, afebrile. Assessment/Plan -Status post left arm brachiocephalic fistula creation on 09/24/[address] Zavala, vascular surgery. -Pulmonary congestion, resolved, continue Lasix. -Acute anemia, status post blood transfusion -Chronic kidney disease stage IV /V with progression to end-stage renal disease. Dr. Panda is following in nephrology consultation. -Preserved ejection fraction per 2D echo Dr. Shields is following in cardiology consultation -Hypertension, continue Norvasc and hydralazine -Seizures, continue Keppra. Dr. Prado is following in neurology consultation. -Schizophrenia, continue patient's antipsychotic medications, psychiatric evaluation appreciated Further recommendations based on clinical course. Plan of care discussed with Dr. Carrero. Result Diagram: 09/24/18 0509 09/24/18 0509 Results 24hrs Laboratory Tests Test 09/24/18 05:05 09/24/18 05:09 Serum HCG, Qualitative NEGATIVE White Blood Count 7.4 # Red Blood Count 2.79 L Hemoglobin 8.2 L Hematocrit 25.8 L Mean Corpuscular Volume 92.5 Mean Corpuscular Hemoglobin 29.4 Mean Corpuscular Hemoglobin Concent 31.8 L Red Cell Distribution Width 14.5 Platelet Count 228 Mean Platelet Volume 11.0 H Immature Granulocytes % 0.700 H Neutrophils % 56.7 Lymphocytes % 22.6 Monocytes % 7.9 Eosinophils % 11.4 H Basophils % 0.7 Nucleated Red Blood Cells % 0.0 Immature Granulocytes # 0.050 H Neutrophils # 4.2 Lymphocytes # 1.7 Monocytes # 0.6 Eosinophils # 0.8 H Basophils # 0.1 Nucleated Red Blood Cells # 0.0 Sodium Level 140 Potassium Level 4.5 Chloride Level 105 Carbon Dioxide Level 25 Anion Gap 10 Blood Urea Nitrogen 60 H Creatinine 6.92 H Est Glomerular Filtrat Rate mL/min 7 L Glucose Level 86 Calcium Level 8.7 Exam/Review of Systems Exam Vitals Vital Signs Date Temp Pulse Resp B/P (MAP) Pulse Ox O2 O2 Flow FiO2 Time Delivery Rate 09/24/18 98.0 73 18 157/79 97 Nasal 17:01 (105) Cannula 09/24/18 2.0 15:03 09/24/18 21 02:28 Intake and Output 09/23/18 09/23/18 09/24/18 1515:00 23:00 07:00 IntakeIntake Total 840 ml 480 ml BalanceBalance 840 ml 480 ml Results Results 24hrs Laboratory Tests Test 09/24/18 05:05 09/24/18 05:09 Serum HCG, Qualitative NEGATIVE White Blood Count 7.4 # Red Blood Count 2.79 L Hemoglobin 8.2 L Hematocrit 25.8 L Mean Corpuscular Volume 92.5 Mean Corpuscular Hemoglobin 29.4 Mean Corpuscular Hemoglobin Concent 31.8 L Red Cell Distribution Width 14.5 Platelet Count 228 Mean Platelet Volume 11.0 H Immature Granulocytes % 0.700 H Neutrophils % 56.7 Lymphocytes % 22.6 Monocytes % 7.9 Eosinophils % 11.4 H Basophils % 0.7 Nucleated Red Blood Cells % 0.0 Immature Granulocytes # 0.050 H Neutrophils # 4.2 Lymphocytes # 1.7 Monocytes # 0.6 Eosinophils # 0.8 H Basophils # 0.1 Nucleated Red Blood Cells # 0.0 Sodium Level 140 Potassium Level 4.5 Chloride Level 105 Carbon Dioxide Level 25 Anion Gap 10 Blood Urea Nitrogen 60 H Creatinine 6.92 H Est Glomerular Filtrat Rate mL/min 7 L Glucose Level 86 Calcium Level 8.7 SYDNEY JACKSON Sep 24, 2018 18:52
[2018-09-24] MEDS: traZODone 50 MG TAB PO SCH (20:41)
[2018-09-24] MEDS: ATORVASTATIN 20 MG TAB PO SCH (20:41)
[2018-09-24] MEDS: morphine 4 MG/ML VIAL IV PRN (21:20)
[2018-09-25 02:45] VITALS: BP 172/84; PULSE 81
[2018-09-25] MEDS: LORAZEPAM 0.5 MG TAB PO PRN (03:09)
[2018-09-25] MEDS: hydrALAzine 20 MG INJ IV PRN (03:10)
[2018-09-25] MEDS: morphine 4 MG/ML VIAL IV PRN ×2 (03:32→09:16)
[2018-09-25 03:35] VITALS: BP 156/74; PULSE 82; RESP 18
[2018-09-25] MEDS: PANTOPRAZOLE (EC) 40 MG TAB PO SCH (05:47)
[2018-09-25] MEDS: FUROSEMIDE 20 MG TAB PO SCH ×2 (05:48→17:27)
--- NOTE | 2018-09-25 06:11 | NUR ---
EOSS A&Ox4. BP elevated. Hydralazine PRN given x2. All due meds given. Pain meds given x2. Pain meds effective. Hourly rounding done. Pt ambulated in hallways using FWW. Bed left in lowest position with bed alarm on. Call light left within reach.
--- NOTE | 2018-09-25 06:14 | EEG ---
EEG NOTE Report Details DATE OF TEST: 09/22/18 HISTORY: The patient is a 38-year-old F who presents with seizure. This EEG is requested to evaluate for an epileptic disorder. SEDATION: None. CONDITIONS OF RECORDING: This EEG was recorded digitally on the NexMed machine, using the International 10-20 System of electrodes plus anterior temporals and Nz. STATES SAMPLED: Wakefulness and drowsiness. FINDINGS: During wakefulness, there is a 10 Hz posterior dominant rhythm, which attenuates normally with eye opening. There is a normal [id number]-[id number] frequency-amplitude gradient. The remainder of the awake background is normal. Photic stimulation does not elicit any definite driving responses or epileptiform discharges. Hyperventilation was not performed. The patient became drowsy but did not pass into sleep. No asymmetries, focal abnormalities or epileptiform discharges were seen. IMPRESSION: Normal electroencephalogram during wakefulness and drowsiness. COMMENT: A normal EEG does not of itself rule out an epileptic disorder, especially if sleep is not captured, but may decrease the probability of one depending on clinical context. LUIS MIRANDA Sep 25, 2018 06:14
--- NOTE | 2018-09-25 07:31 | PN ---
Date/Time of Note Date/Time of Note DATE: 09/25/18 TIME: 07:29 Assessment/Plan Lines/Catheters IV C[facility] Type (from [facility]): Peripheral IV Assessment/Plan Chief Complaint/Hosp Course -Chronic kidney disease stage IV to V: Seems that the patient's renal failure has been worsened secondary to her diabetes and hypertension. -S/P Left arm brachiocephalic fistula creation -Can remove dressing at home tomorrow -Patient is clear for discharge today -Followup in 2 weeks at office -Discussed findings, plan and management with the patient and the family at the bedside. -Optimize vascular status (BP meds, diet, nutrition, exercise, sugar control, antiplatelets). -Thank you for allowing me to participate in the care of this patient. Please call with any questions. Subjective 24 Hr Interval Summary no new vascular events overnight Exam/Review of Systems Vital Signs Vitals Vital Signs Date Temp Pulse Resp B/P (MAP) Pulse Ox O2 O2 Flow FiO2 Time Delivery Rate 09/25/18 98.6 82 18 156/74 93 Room Air 03:35 (101) 09/24/18 2.0 15:03 09/24/18 21 02:28 Intake and Output 09/24/18 09/24/18 09/25/18 1515:00 23:00 07:00 IntakeIntake Total 50 ml 830 ml OutputOutput Total 50 ml 1000 ml BalanceBalance 0 ml -170 ml Exam Free Text/Dictation GENERAL: Awake and answers simple questions PULMONARY: Coarse breath sounds bilaterally, some crackles at the bases. CARDIOVASCULAR: S1, S2 present. ABDOMEN: Soft, nontender, nondistended. Bowel sounds positive. Truncal obesity. EXTREMITIES: -Right lower extremities: Palpable femoral pulse, faint pedal pulse. Motor, sensory intact. Capillary refill 3 seconds, large leg. -Left lower extremity: Palpable femoral pulse, faint pedal pulse. Motor, sensory intact. Capillary refill 3 seconds. Large leg. -Left upper extremities: Palpable brachial pulse. Motor, sensory intact. Capillary refill 3 seconds. dressing clean and dry, fistula with bruit and thrill -Right-sided upper and lower extremity: Motor is intact; however, has some weakness and paralysis that appears to be 4/5. Results Result Diagram: 09/25/18 0507 09/25/18 0507 ARIANA BLANK MD Sep 25, 2018 07:31
[2018-09-25 08:00] VITALS: BP 166/77; PULSE 82; RESP 18
[2018-09-25] MEDS: SEVELAMER CARBONATE 800 MG TABLET PO SCH ×3 (08:22→17:22)
[2018-09-25] MEDS: ASPIRIN (EC) 81 MG TAB PO SCH (08:22)
[2018-09-25] MEDS: NICOTINE (21 MG/24 HR) PATCH TRANSDERM SCH (08:22)
[2018-09-25] MEDS: CITRIC ACID/NA CITRATE 30 ML CUP PO SCH ×2 (08:22→12:38)
[2018-09-25] MEDS: SERTRALINE 50 MG TAB PO SCH (08:23)
[2018-09-25] MEDS: LEVETIRACETAM 500 MG TAB PO SCH (08:23)
[2018-09-25] MEDS: OLANZAPINE 5 MG TAB PO SCH (08:23)
[2018-09-25] MEDS: AMLODIPINE 10 MG TAB PO SCH (08:24)
[2018-09-25] MEDS: ISOSORBIDE DINITRATE 20 MG TAB PO SCH ×2 (08:24→12:38)
--- NOTE | 2018-09-25 09:12 | CONS ---
Assessment/Plan Assessment/Plan Assessment/Plan (Daily) 1. CKD V with worsening renal failure with Fluid overload and pulmonary congestion 2. Severe anemia with Hb 6.7 due to worsening CKD 3. metabolic acidosis 4. Anemia of CKD V s/p 2 units PRBC 5. H/o HTN 6. H/o CHF, acute on chronic diastolic vs systolic 7. H/o Schizophrenia 8. H/o Depression 9. H/o CVA with residual weakness Plan: ,BUN/Cr 55/6.9 eGFR 7 -lasix to 20mg pO BID - continue current meds no ACEI/ARb due to advanced CKD Bicitra 30ml PO TID Epogen 6000 units on TTS for anemia Pt has worsening CKD to ESRD now, eGFR - discussed with pt about , she wants to wait before doing HD ,plan for AVF today Follow up with me in clinic in 1-2 week after discharge will follow up Consultation Date/Type/Reason Admit Date/Time Sep 15, 2018 at 10:45 Initial Consult Date 09/15/18 Type of Consult NEPHROLOGY Requesting Provider: SYDNEY JACKSON Date/Time of Note DATE: 09/25/18 TIME: 09:12 24 HR Interval Summary Free Text/Dictation s/p LUE AVF placement, pt is c/o pain, requesting norco Exam/Review of Systems Exam Vitals Vital Signs Date Temp Pulse Resp B/P (MAP) Pulse Ox O2 O2 Flow FiO2 Time Delivery Rate 09/25/18 98.0 82 18 166/77 97 Room Air 08:00 (106) 09/24/18 2.0 15:03 09/24/18 21 02:28 Intake and Output 09/24/18 09/24/18 09/25/18 1515:00 23:00 07:00 IntakeIntake Total 50 ml 830 ml OutputOutput Total 50 ml 1000 ml BalanceBalance 0 ml -170 ml Constitutional: alert Head: normocephalic Neck: supple, non-tender Respiratory: clear to auscultation, normal air movement, diminished breath sounds Cardiovascular: regular rate and rhythm, nl pulses Gastrointestinal: soft, non-tender Musculoskeletal: muscle weakness, swelling Neurological: BLEACH TESTER II-XII intact, nl mental status, nl speech Skin: nl turgor Results Result Diagram: 09/25/18 0507 09/25/18 0507 Results 24hrs Laboratory Tests Test 1/25/19 05:07 White Blood Count 9.0 # Red Blood Count 2.75 L Hemoglobin 8.0 L Hematocrit 25.5 L Mean Corpuscular Volume 92.7 Mean Corpuscular Hemoglobin 29.1 Mean Corpuscular Hemoglobin Concent 31.4 L Red Cell Distribution Width 14.6 H Platelet Count 217 Mean Platelet Volume 10.6 H Immature Granulocytes % 0.700 H Neutrophils % 66.4 Lymphocytes % 16.2 Monocytes % 7.8 Eosinophils % 8.5 H Basophils % 0.4 Nucleated Red Blood Cells % 0.0 Immature Granulocytes # 0.060 H Neutrophils # 5.9 Lymphocytes # 1.5 Monocytes # 0.7 Eosinophils # 0.8 H Basophils # 0.0 Nucleated Red Blood Cells # 0.0 Sodium Level 138 Potassium Level 4.7 Chloride Level 102 Carbon Dioxide Level 24 Anion Gap 12 Blood Urea Nitrogen 55 H Creatinine 6.90 H Est Glomerular Filtrat Rate mL/min 7 L Glucose Level 91 Calcium Level 9.0 ISABELLE BROWNING MD Sep 25, 2018 09:12
[2018-09-25] MEDS ORDERED: HYDROCODONE/APAP (5/325) TAB PO PRN (10:00)
--- NOTE | 2018-09-25 14:38 | CONS ---
Assessment/Plan Assessment/Plan Hospital Course 38 yo F with hx of prior CVA, substance abuse, depression, and other comorbidities who presents for evaluation and management of respiratory sx. The pt had a witnessed seizure yesterday, for which neurology is consulted. Of note, the pt takes Wellbutrin.. Likely provoked seizure in the context of Wellbutrin therapy.. New onset epilepsy is unlikely. EEG is without epileptiform activity. MRI brain is reassuringly without acute intracranial pathology. P: Hold Wellbutrin indefinitely Limit psychotropic polypharmacy where possible Keppra not presently indicated Ativan IV PRN seizure > 5 min or for cluster Other medical management per primary Will follow clinically Result Diagram: 09/25/18 0507 09/25/18 0507 Results 24hrs Laboratory Tests Test 09/25/18 05:07 White Blood Count 9.0 # Red Blood Count 2.75 L Hemoglobin 8.0 L Hematocrit 25.5 L Mean Corpuscular Volume 92.7 Mean Corpuscular Hemoglobin 29.1 Mean Corpuscular Hemoglobin Concent 31.4 L Red Cell Distribution Width 14.6 H Platelet Count 217 Mean Platelet Volume 10.6 H Immature Granulocytes % 0.700 H Neutrophils % 66.4 Lymphocytes % 16.2 Monocytes % 7.8 Eosinophils % 8.5 H Basophils % 0.4 Nucleated Red Blood Cells % 0.0 Immature Granulocytes # 0.060 H Neutrophils # 5.9 Lymphocytes # 1.5 Monocytes # 0.7 Eosinophils # 0.8 H Basophils # 0.0 Nucleated Red Blood Cells # 0.0 Sodium Level 138 Potassium Level 4.7 Chloride Level 102 Carbon Dioxide Level 24 Anion Gap 12 Blood Urea Nitrogen 55 H Creatinine 6.90 H Est Glomerular Filtrat Rate mL/min 7 L Glucose Level 91 Calcium Level 9.0 Consultation Date/Type/Reason Admit Date/Time Sep 15, 2018 at 10:45 Type of Consult Neurology Reason for Consultation seizure Requesting Provider: SYDNEY JACKSON Date/Time of Note DATE: 09/25/18 TIME: 14:38 24 HR Interval Summary Free Text/Dictation Continues medsurg care. S/p AV shunt placement. Pt states she tolerated well and wants to sleep at this time. No acute events reported. Exam Vital Signs Vitals Vital Signs Date Temp Pulse Resp B/P (MAP) Pulse Ox O2 O2 Flow FiO2 Time Delivery Rate 09/25/18 98.0 82 18 166/77 97 Room Air 08:00 (106) 09/24/18 2.0 15:03 09/24/18 21 02:28 Intake and Output 09/24/18 09/24/18 09/25/18 1515:00 23:00 07:00 IntakeIntake Total 50 ml 830 ml OutputOutput Total 50 ml 1000 ml BalanceBalance 0 ml -170 ml Exam PE: Gen Appearance: Flat, guarded/withdrawn HEENT: Normocephalic Cardiovascular: Regular rate Lungs: Clear bilaterally Abdomen: Soft Extremities: Dry NE: The patient was alert and oriented. Language was normal. Fund of knowledge was normal. Pupils were equal and reactive to light. There was no afferent pupillary defect. Visual willson were normal. Funduscopic examination was limited. Extra-ocular movements were full. Ptosis was absent. There was no nystagmus. Facial sensation was normal. Face was symmetric with normal strength. Hearing was intact. Palate movements were normal. Neck strength was normal. There was normal tongue bulk and speed of movement. Tone was normal. Muscle bulk was normal. I did not see fasciculations. Arms and legs were strong to confrontation. Vibration sensation was normal. Temperature and pinprick sensation was normal. Rapid alternating movements were normal. There was no dysmetria. There was no intention tremor. Gait was steady when ambulating unassisted. Arm and leg reflexes were 2+ and symmetric. Merchant's sign was absent. Plantar responses were flexor. FEDE POWELL NP Sep 25, 2018 14:38
--- NOTE | 2018-09-25 17:27 | NUR ---
END OF SHIFT SUMMARY Pt alert and oriented, all due meds given as ordered. NO acute distress noted. Pt able to ambulate with assist. Morphine switched to [place]. Pt ready for discharge when order is in place. Av shunt placed ready to use outside of hospital. Will endorse new plan of care to oncoming shift.
--- NOTE | 2018-09-25 18:01 | PDOCDIS ---
Discharge Instructions CONDITION [id number] Patient Condition: [id number] Stable HOME CARE INSTRUCTIONS: [id number] Diet Instructions: Oknmr4x Renal Holzo8Ql Special Diet: Fpglr5h renal ACTIVITY: Efyhy8Yg Activity Restrictions: [id number] No Restrictions Slowly Increase Activity Rest between Activity Avoid heavy lifting Do not operate Machinery Do not operate Power Tool [id number] Bathing Restrictions: [id number] Sponge Bath FOLLOW UP/APPOINTMENTS Follow-up Plan - FU w PMD x 1 week FU w machine marker as recommended Ca11 911 or got to the nearest hospital if symptoms get worse- patient verbalized understanding dc instructions Plan bee Carrero/staff/patient JUSTYNA CRAWFORD Sep 25, 2018 18:01
[2018-09-25] MEDS ORDERED: HYDR-3601 PO (18:04)
--- NOTE | 2018-09-25 18:05 | DS ---
Date/Time of Note Date/Time of Note DATE: 09/25/18 TIME: 18:05 Discharge Summary Admission/Discharge Info Admit Date/Time Sep 15, 2018 at 10:45 Discharge Date/Time Patient Condition: Stable Home Meds Active Scripts Hydrocodone Bit-Acetaminophen (Hydrocodone Bit-APAP) 5-325MG Tablet, 1 TAB PO Q6 PRN for MODERATE PAIN LEVEL 4-6, #20 TAB Prov:JUSTYNA CRAWFORD 09/25/18 Reported Medications Albuterol Sulfate* (Ventolin HFA*) 18 Gm Hfa.aer.ad, 2 PUFF INHALATION Q4H, #1 INHALER 09/15/18 Bupropion Hcl* (Wellbutrin XL*) 150 Mg Tab.sr.24h, 150 MG PO DAILY, TAB.SA 09/15/18 Fluphenazine Hcl* (Prolixin*) 5 Mg Tab, 5 MG PO DAILY, TAB 09/15/18 Atorvastatin Calcium* (Atorvastatin Calcium*) 20 Mg Tablet, 20 MG PO QHS, #30 TAB 09/15/18 Isosorbide Mononitrate* (Isosorbide Mononitrate*) 20 Mg Tablet, 20 MG PO BID, TAB 09/15/18 Aspirin (Low Dose Aspirin) 81 Mg Tablet., 81 MG PO DAILY, #30 TAB 09/15/18 Hydralazine Hcl* (Hydralazine Hcl*) 25 Mg Tab, 25 MG PO TID PRN for ELEVATED BLOOD PRESSURE, #90 TAB 09/15/18 Amlodipine Besylate* (Amlodipine Besylate*) 10 Mg Tablet, 10 MG PO DAILY, #30 TAB 09/15/18 Sertraline Hcl* (Zoloft*) 25 Mg Tablet, 25 MG PO DAILY, #30 TAB 09/15/18 Lorazepam* (Lorazepam*) 0.5 Mg Tablet, 0.5 MG PO Q4 PRN for ANXIETY, TAB 09/15/18 Trazodone Hcl* (Trazodone Hcl*) 50 Mg Tablet, 50 MG PO QHS, #30 TAB 09/15/18 Follow-up Plan - FU w PMD x 1 week FU w bar tender as recommended Ca11 911 or got to the nearest hospital if symptoms get worse- patient verbalized understanding dc instructions Plan dw dr Carrero/staff/patient Primary Care Provider Not On Staff Doctor Pending Labs Laboratory Tests Test 1/25/19 05:07 White Blood Count 9.0 10^3/ul (4.8-10.8) Red Blood Count 2.75 10^6/ul (4.20-5.40) Hemoglobin 8.0 g/dl (12.0-16.0) Hematocrit 25.5 % (37.0-47.0) Mean Corpuscular Volume 92.7 fl (82.0-101.0) Mean Corpuscular Hemoglobin 29.1 pg (29.0-33.0) Mean Corpuscular Hemoglobin Concent 31.4 g/dl (32.0-37.0) Red Cell Distribution Width 14.6 % (11.5-14.5) Platelet Count 217 10^3/UL (140-415) Mean Platelet Volume 10.6 fl (7.4-10.4) Immature Granulocytes % 0.700 % (0.001-0.429) Neutrophils % 66.4 % (39.0-77.0) Lymphocytes % 16.2 % (15.0-51.0) Monocytes % 7.8 % (0.0-11.0) Eosinophils % 8.5 % (0.0-7.0) Basophils % 0.4 % (0.0-2.0) Nucleated Red Blood Cells % 0.0 /100WBC (0.0-0.0) Immature Granulocytes # 0.060 10^3/ul (0.0-0.031) Neutrophils # 5.9 10^3/ul (1.6-7.5) Lymphocytes # 1.5 10^3/ul (0.8-2.9) Monocytes # 0.7 10^3/ul (0.3-0.9) Eosinophils # 0.8 10^3/ul (0.0-0.5) Basophils # 0.0 10^3/ul (0.0-0.1) Nucleated Red Blood Cells # 0.0 10^3/ul (0.0-0.0) Sodium Level 138 mmol/L (135-144) Potassium Level 4.7 mmol/L (3.5-5.1) Chloride Level 102 mmol/L (97-110) Carbon Dioxide Level 24 mmol/L (21-31) Anion Gap 12 (5-13) Blood Urea Nitrogen 55 mg/dl (7-20) Creatinine 6.90 mg/dl (0.44-1.00) Est Glomerular Filtrat Rate mL/min 7 mL/min (>60) Glucose Level 91 mg/dl (70-220) Calcium Level 9.0 mg/dl (8.4-10.2) JUSTYNA CRAWFORD Sep 25, 2018 18:05
--- NOTE | 2018-09-25 19:53 | NUR ---
Received report from Jackie along with discharge order. Pt states she lives in Assisted Living and wishes to go back but there is no order for that Order says DC to home on self-care. Spoke with pt mother, Alyce, and states, "I live in [place] and I have a kidney infection. I just took my medicine and I [facility] drive [facility]. I can go tomorrow, but why can't she go to the assisted living? She has all of her belongings there." Informed pt and mother that is for to arrange. I will endorse and notify Dr. Carrero. Addendum: 09/25/18 at 2143 by DARIO KNAPP RN Spoke with AIDEE Rutledge, and stated Assisted Living is where pt lives and pt has orders to be dc to home. Arranged for Taxi voucher and received approval from general production manager, Flo Glass, to transport pt to [facility] in [place]. Pt in stable condition. Read instructions and discharge papers to pt. Pt verbalized understanding. Discharge papers given. Notified Licha from [facility] that pt is going to assisted living. They are ready to receive pt. Pt taken down via wheelchair at 2109 accompanied by Boaz TINOCO. All belongings with pt. IV discontinued. Pt has no questions.
--- NOTE | 2018-09-25 20:07 | NUR ---
Called and informed him that patient came from assisted living and needs the case finisher for the the arrangement of discharge. Per he will call Maty (case finisher).
--- NOTE | 2018-09-25 20:43 | NUR ---
ERMIAS FALLON) CALLED AND STATED THAT DISCHARGING TO ASSISTED LIVING IS SAME DISCHARGING TO HOME. Patient is self care,ambulatory and alert,oriented.This RN called the [facility] and and confirmed that the patient is a resident of the said facility.According to [facility], they are accepting residents 24hrs a day.And that the patient will go to room 208. Tisha, nursing supervisor slashing department was informed.After checking the assisted living's location, she said she will issue the taxi voucher. taxi voucher acct number#[id number]. Addendum: 09/25/18 at 2109 by DAMIEN BASSETT RN [facility].tel number#[phone]
--- NOTE | 2018-09-25 21:19 | NUR ---
Patient left on stable condition.Assisted by the nursing staff: Boaz via wheelchair and endorsed to the route delivery service driver the patient's voucher.
== END 2018-09-25 21:10 | disposition home or self-care (01) | DRG 264 ==
LOC: SDS 05:56 → ICU 10:30 → SDS 10:45 → REC 10:45 → ICU 10:55 → TEL 09-16 01:47 → 2NE 09-23 02:15 → 5EC 09-24 11:10
PROVIDERS: ADMIT Student in an Organized Health Care Education/Training Program; ATTEND Internal Medicine
PROC: 30233N1 Transfusion of Nonautologous Red Blood Cells into Peripheral Vein, Percutaneous Approach (ICD-10-PCS; 2018-09-15)
PROC: 03180ZD Bypass Left Brachial Artery to Upper Arm Vein, Open Approach (ICD-10-PCS; principal; 2018-09-24 11:00)
DX: I13.2 Hypertensive heart and chronic kidney disease with heart failure and with stage 5 chronic kidney disease, or end stage renal disease (principal); N18.6 End stage renal disease; E87.2 Acidosis; F20.0 Paranoid schizophrenia; I69.959 Hemiplegia and hemiparesis following unspecified cerebrovascular disease affecting unspecified side; I50.9 Heart failure, unspecified; D64.9 Anemia, unspecified; J44.9 Chronic obstructive pulmonary disease, unspecified; E11.22 Type 2 diabetes mellitus with diabetic chronic kidney disease; Z87.820 Personal history of traumatic brain injury; F17.210 Nicotine dependence, cigarettes, uncomplicated; D63.1 Anemia in chronic kidney disease; R56.9 Unspecified convulsions
CPT/HCPCS: 36430; 70551; 71045; 80048; 82550; 82553; 82607; 82728; 82746; 82962; 83036; 83540; 83615; 83735; 83880; 84100; 84484; 84560; 84703; 85025; 85610; 85730; 86850; 86900; 86901; 86920; 93005; 93306; 94640; 94664; 95819; J0360; J0885; J1200; J1644; J1940; J1953; J2060; J2250; J2270; J2274; J2597; J2795; J3010; J3475; J7040; P9016; Q4081